=== PATIENT | female | born 1940 | race Caucasian/White ===

== ENCOUNTER → 2016-10-18 | Outpatient (CLI) | payer MEDICARE, MEDICAID ==
[~2016-10-18] MED LIST: 'XANAX0.5 MG PO; ACETAMINOPHEN PO; ACIDOPHILUS1 CAP PO; ALBUTEROL 3 ML 33 ML INH; ALBUTEROL2.5 MG/0.5 INH; AMLODIPINE10 MG PO; ANASTROZOLE1 M1 PO; ANASTROZOLE1 MG PO; ARIMIDEX1 MG PO; ASPIR 8181 MG PO; ASPIRIN ADULT L81 M2 PO; ASPIRIN162 MG PO; ASPIRIN81 M1 PO; Albuterol Sulfat3 ML INH; Asacol PO; B-COMPLEX1 CAP PO; BREO ELLIPTA 11 EACH IH; CALCIUM + D 6001 TA1 PO; CALCIUM + VITA1 EAC2 PO; CALCIUM 600 + V1 TAB PO; CALCIUM 600+D31 EACH PO; CALCIUM 600600 M1 PO; CALCIUM500 MG PO; CARAFATE1 G1 PO; CARAFATE1 GM/10 ML PO; CARDIZEM30 MG PO; CATAPRES-T0.1 MG/24 TD; CATAPRES0.1 MG PO; CEFTIN250 MG PO; CEFTRIAXON1 GM/50 ML IV; CEFUROXIME AXE250 MG PO; CELEXA10 MG PO; CELEXA20 MG PO; CHLORTHALIDONE25 MG PO; CIPRO XR500 MG PO; CIPRO500 MG PO; CIPROFLOXACIN500 MG PO; CITALOPRAM HYDR20 MG PO; CITALOPRAM10 MG PO; CLONIDINE0.1 MG PO; CLONIDINE0.2 MG/24 T; COLACE100 MG PO; COREG25 MG PO; COUMADIN3 M1 PO; COUMADIN4 M1 PO; COUMADIN5 M2 PO; Catapres-Tts 20.2 MG PO; DILTIAZEM HCL90 MG PO; DOK100 MG PO; DONNATAL1 CA1 PO; DOXYCYCLINE HY100 M5 PO; DOXYCYCLINE MO100 MG PO; DOXYCYCLINE100 M3 PO; DOXYCYCLINE100 MG PO; DULER200; DULER200 INH; DULERA 200 MCG8.8 GM IH; DULERA100; DUONEB 3 MG/3 ML3 M1 INH; Duoneb 3ML 3 MG/3 ML NEB; EFFIENT10 MG PO; FA-8800 MCG PO; FERREX 150150 MG PO; FLAGYL250 MG PO; FOLIC ACID1 MG PO; GABAPENTIN400 MG PO; GUANFACINE1 MG PO; HALFPRIN162 MG PO; HEPARIN IV; HYDROCODONE BIT1 T11 PO; HYDROXYZINE PAM50 MG PO; INCRUSE EL62.5 MCG/A IH; INDOMETHACIN25 M1 PO; KLOR-CON 1010 ME1 PO; KLOR-CON20 MEQ PO; LASIX20 MG PO; LASIX40 MG PO; LEVAQUIN750 MG PO; LEVOFLOXACIN500 MG PO; LEVOTHYROXIN; LEVOTHYROXIN0.075 MG PO; LIDODERM 5% PATC1 EA T; LISINOPRIL10 M1 PO; LISINOPRIL20 MG PO; LISINOPRIL5 MG PO; LOMOTIL 0.025 M1 TA1 PO; LOPRESSOR25 MG PO; LOPRESSOR50 MG PO; Lovenox60 MG/0.6 SC; MACROBID100 M1 PO; MECLIZINE HCL25 M2 PO; METOPROLOL SR100 MG PO; METOPROLOL25 MG PO; MOTRIN800 MG PO; MUCINEX600 MG PO; NATURE'S BLEND F1 MG PO; NEBULIZER DEVI; NEURONTIN100 MG; NEURONTIN100 MG PO; NEURONTIN300 MG PO; NEURONTIN400 MG PO; NEURONTIN800 MG PO; NILSTAT,MY500000 UN/ PO; NITROSTAT0.4 MG PO; NITROSTAT0.4 MG SL; NORCO 325 MG-51 TAB PO; NORVASC10 MG PO; NORVASC5 MG PO; OXYCODONE HCL5 M1 PO; OXYGEN NAS; PEPCID20 MG PO; PHENERGAN12.5 M1 PO; PLAVIX75 MG PO; POTASSIUM CHLO20 ME3 PO; POTASSIUM20 MEQ PO; PREDNISONE10 MG PO; PRILOSEC20 M1 PO; PRINIVIL10 MG PO; PRISTIQ50 MG PO; PRO-AIR HFA INH; PROAIR HFA0.09 MG/AC IH; PROAIR HFA0.09 MG/AC INH; PROAIR HFA8.5 GM INH; PROBIOTIC ACID1 EAC1 PO; PROTONIX IV40 MG PO; PROTONIX20 MG PO; PROTONIX40 MG PO; QUINAPRIL40 MG PO; SPIRIVA; SPIRIVA -- 3018 MCG INH; SPIRIVA -- 3018 MCG PO; SPIRIVA18 MCG IH; SPIRIVA18 MCG PO; SYMBICORT1 AE1 IH; SYMBICORT1 AE1 INH; SYNTHROID,LEVO50 MCG PO; SYNTHROID0.05 MG PO; Synthroid,Levo50 MCG PO; TOPAMAX25 M1 PO; TOPAMAX25 MG PO; TOPAMAX50 MG PO; TOPIRAMATE25 M1 PO; TRAMADOL HYDROC50 MG PO; TUMS REGULAR S500 MG PO; TUMS500 MG PO; TYLENOL EXTRA500 M1 PO; TYLENOL WITH CO1 TA1 PO; TYLENOL325 M1 PO; TYLENOL325 M2 PO; TYLENOL500 MG PO; ULTRAM ER100 MG PO; ULTRAM50 MG PO; VANCOCIN H250 MG/5 M PO; VANCOCIN HCL1 GM IV; VANCOCIN250 MG PO; VANCOMYCIN250 MG/2.5 PO; VENTOLIN 02.5 MG/3 M INH; VENTOLIN H0.09 MG/AC IH; VITAMIN B121000 MC1 PO; VITAMIN B12500 MC1 MM; VITAMIN B12500 MCG PO; XANAX0.25 MG PO; XANAX0.5 MG PO; ZESTRIL,PRINIVI40 MG PO; ZITHROMAX500 MG PO; ZOFRAN ODT4 MG SL; ZYVOX600 MG PO; Zofran4 MG PO; [UNRECOGNIZED DRUG - OTHER] IV; [UNRECOGNIZED DRUG - OTHER] PO
== END | disposition home or self-care (01) ==
LOC: CT 10-11 05:52
DX: G56.03 Carpal tunnel syndrome, bilateral upper limbs (principal); M47.22 Other spondylosis with radiculopathy, cervical region

== ENCOUNTER → 2017-03-02 | Outpatient (CLI) | payer MEDICARE, MEDICAID | END | disposition home or self-care (01) | LOC: RAD 15:42 | DX: M25.511 Pain in right shoulder (principal) ==

== ENCOUNTER 2017-06-13 20:43 | Emergency (ER) | payer MEDICARE, MEDICAID ==
[~2017-06-13] VITALS: Ht 165.1 cm; Wt 45.4 kg
[2017-06-13 21:38] LABS: BASO # 0.1 10*3/uL (0.0-0.1); BASO % 1.2 % (0.0-1.0); EOS # 0.2 10*3/uL (0.0-0.4); EOS % 2.7 % (1.0-4.0); HEMATOCRIT 32.7 % (37.0-47.0); HEMOGLOBIN 10.5 g/dl (12.0-16.0); LYMPH % 23.4 % (27.0-41.0); MEAN CELL VOLUME 101.9 fl (81.0-99.0); MEAN CORPUSCULAR HGB 32.7 pg (27.0-31.0); MEAN CORPUSCULAR HGB CONC 32.1 g/dl (33.0-37.0); MEAN PLATELET VOLUME 10.9 fl (9.6-12.3); MONO # 0.6 10*3/uL (0.1-1.0); MONO % 7.5 % (3.0-9.0); NEUT # 5.4 10*3/uL (2.3-7.9); NEUT % 64.5 % (47.0-73.0); PLATELET COUNT AUTOMATED 178 10*3/uL (130-400); RED BLOOD COUNT 3.21 10*6/uL (4.10-5.10); RED CELL DISTRI WIDTH 13.9 % (0-14.5); WHITE BLOOD COUNT 8.4 10*3/uL (4.8-10.8)
[2017-06-13 21:49] LABS: INTERNATIONAL NORM RATIO 0.9 (2.0-3.5)
[2017-06-13 21:59] LABS: ALKALINE PHOSPHATASE 75 U/L (45-117); BUN 20 mg/dl (7-24); CHLORIDE 114 mmol/L (98-107); CREATININE 1.12 mg/dL (0.55-1.02); POTASSIUM 3.8 mmol/L (3.5-5.1); SGOT/AST 22 IU/L (3-35); SGPT/ALT 29 U/L (12-78); SODIUM 144 mmol/L (136-145)
[2017-06-13 22:05] LABS: TROPONIN I < 0.015 ng/ml (<0.045)
== END 2017-06-14 00:33 | disposition short-term general hospital (02) ==
LOC: ED 20:43
PROVIDERS: Emergency Medicine Emergency Medical Services
DX: S72.141A Displaced intertrochanteric fracture of right femur, initial encounter for closed fracture (principal); I25.10 Atherosclerotic heart disease of native coronary artery without angina pectoris; J44.9 Chronic obstructive pulmonary disease, unspecified; F32.9 Major depressive disorder, single episode, unspecified; K21.9 Gastro-esophageal reflux disease without esophagitis; E87.5 Hyperkalemia; I95.9 Hypotension, unspecified; Z95.0 Presence of cardiac pacemaker; Z90.49 Acquired absence of other specified parts of digestive tract; Z90.710 Acquired absence of both cervix and uterus; F17.200 Nicotine dependence, unspecified, uncomplicated; Z88.2 Allergy status to sulfonamides; Z88.8 Allergy status to other drugs, medicaments and biological substances; Z79.899 Other long term (current) drug therapy; Z79.82 Long term (current) use of aspirin; W01.198A Fall on same level from slipping, tripping and stumbling with subsequent striking against other object, initial encounter; Y93.89 Activity, other specified; Y92.098 Other place in other non-institutional residence as the place of occurrence of the external cause; Y99.8 Other external cause status

== ENCOUNTER 2017-12-15 18:49 | Inpatient (IN) | payer MEDICARE, MEDICAID ==
[~2017-12-15] VITALS: Ht 165.1 cm; Wt 43.7 kg
[2017-12-15] VITALS: BP 160/82
[2017-12-15 18:55] VITALS: BP 205/104
[2017-12-15 19:32] VITALS: BP 172/98
[2017-12-15 19:39] LABS: BASO # 0.1 10*3/uL (0.0-0.1); BASO % 0.5 % (0.0-1.0); EOS # 0.2 10*3/uL (0.0-0.4); EOS % 2.2 % (1.0-4.0); HEMATOCRIT 36.2 % (37.0-47.0); HEMOGLOBIN 11.6 g/dl (12.0-16.0); LYMPH # 1.6 10*3/uL (1.3-4.4); LYMPH % 15.5 % (27.0-41.0); MEAN CELL VOLUME 98.1 fl (81.0-99.0); MEAN CORPUSCULAR HGB 31.4 pg (27.0-31.0); MEAN PLATELET VOLUME 10.7 fl (9.6-12.3); MONO # 0.6 10*3/uL (0.1-1.0); MONO % 5.8 % (3.0-9.0); NEUT # 7.5 10*3/uL (2.3-7.9); NEUT % 75.4 % (47.0-73.0); PLATELET COUNT AUTOMATED 209 10*3/uL (130-400); RED BLOOD COUNT 3.69 10*6/uL (4.10-5.10); RED CELL DISTRI WIDTH 13.7 % (0-14.5)
[2017-12-15 19:49] LABS: ACT PARTIAL THROMBO TIME 29.9 SECONDS (20.8-31.5); INTERNATIONAL NORM RATIO 0.9 (2.0-3.5)
[2017-12-15 19:55] LABS: ALBUMIN 3.1 gm/dl (3.1-4.5); ALKALINE PHOSPHATASE 101 U/L (45-117); BUN 19 mg/dl (7-24); CHLORIDE 112 mmol/L (98-107); CREATININE 1.04 mg/dL (0.55-1.02); LIPASE 73 U/L (73-393); POTASSIUM 3.4 mmol/L (3.5-5.1); SGOT/AST 24 IU/L (3-35); SGPT/ALT 28 U/L (12-78); SODIUM 142 mmol/L (136-145); TOTAL PROTEIN 6.6 gm/dL (6.4-8.2)
[2017-12-15 19:56] LABS: TROPONIN I < 0.015 ng/ml (<0.045)
[2017-12-15 21:16] LABS: BILIRUBIN NEGATIVE (NEGATIVE); BLOOD NEGATIVE (NEGATIVE); CLARITY SL CLOUDY (CLEAR); COLOR YELLOW (YELLOW); GLUCOSE NEGATIVE (NEGATIVE); KETONE NEGATIVE (NEGATIVE); LEUKO ESTERASE 3+ (NEGATIVE); NITRITE NEGATIVE (NEGATIVE); UROBILINOGEN 0.2 E.U./dl (0.2-1.0)
[2017-12-15 21:24] LABS: BACTERIA 4+
[2017-12-15 21:25] LABS: MUCOUS TRACE; WBC 51-100 wbc/hpf (0-5)
[2017-12-15 22:00] VITALS: BP 160/82
[2017-12-15] MEDS ORDERED: GABAPENTIN400 MG PO (22:17)
[2017-12-15] MEDS ORDERED: BUSPAR5 MG PO (22:17)
[2017-12-15] MEDS ORDERED: PROAIR HFA8.5 GM INH (22:18)
[2017-12-15] MEDS ORDERED: VITAMIN C500 M4 PO (22:19)
[2017-12-15 22:39] VITALS: BP 160/82
[2017-12-15] MEDS ORDERED: ANASTROZOLE1 M1 PO (23:15)
[2017-12-15] MEDS ORDERED: VENTOLIN 02.5 MG/3 M INH (23:17)
[2017-12-15] MEDS ORDERED: MAPAP500 M1 PO (23:21)
[2017-12-16 02:02] LABS: HEMATOCRIT 32.1 % (37.0-47.0); HEMOGLOBIN 10.3 g/dl (12.0-16.0); MEAN CELL VOLUME 98.5 fl (81.0-99.0); MEAN CORPUSCULAR HGB 31.6 pg (27.0-31.0); MEAN CORPUSCULAR HGB CONC 32.1 g/dl (33.0-37.0); MEAN PLATELET VOLUME 10.7 fl (9.6-12.3); PLATELET COUNT AUTOMATED 189 10*3/uL (130-400); RED BLOOD COUNT 3.26 10*6/uL (4.10-5.10); RED CELL DISTRI WIDTH 13.6 % (0-14.5); WHITE BLOOD COUNT 8.5 10*3/uL (4.8-10.8)
[2017-12-16 02:21] LABS: BUN 19 mg/dl (7-24); CHLORIDE 115 mmol/L (98-107); CHOLESTEROL 123 mg/dL (<200); CREATININE 0.89 mg/dL (0.55-1.02); HDL CHOLESTEROL 60 mg/dl (40-60); LDL CHOLESTEROL 57 mg/dL (9-159); PHOSPHOROUS 2.6 mg/dL (2.5-4.9); POTASSIUM 3.7 mmol/L (3.5-5.1); SODIUM 144 mmol/L (136-145); TRIGLYCERIDES 29 mg/dl (<150); VLDL CHOLESTEROL 6 mg/dL (6-40)
[2017-12-16 02:27] LABS: PLATELET SUFFICIENCY NORMAL (NORMAL); TOTAL CELLS COUNTED 100 #CELLS
[2017-12-16 06:53] LABS: VITAMIN D, 25-HYDROXY 46.5 ng/mL (30-100)
[2017-12-16 08:00] VITALS: BP 131/70; BP 152/83
[2017-12-16 12:00] VITALS: BP 133/62
[2017-12-16 15:46] VITALS: BP 129/55
[2017-12-16 20:00] VITALS: BP 154/67
[2017-12-17] VITALS: BP 149/69
[2017-12-17 06:24] LABS: HEMATOCRIT 32.4 % (37.0-47.0); HEMOGLOBIN 10.2 g/dl (12.0-16.0); MEAN CELL VOLUME 100.9 fl (81.0-99.0); MEAN CORPUSCULAR HGB 31.8 pg (27.0-31.0); MEAN CORPUSCULAR HGB CONC 31.5 g/dl (33.0-37.0); MEAN PLATELET VOLUME 10.6 fl (9.6-12.3); PLATELET COUNT AUTOMATED 206 10*3/uL (130-400); RED BLOOD COUNT 3.21 10*6/uL (4.10-5.10); RED CELL DISTRI WIDTH 13.9 % (0-14.5)
[2017-12-17 06:31] LABS: WHITE BLOOD COUNT 18.1 10*3/uL (4.8-10.8)
[2017-12-17 06:38] LABS: ALBUMIN 2.7 gm/dl (3.1-4.5); BUN 23 mg/dl (7-24); CHLORIDE 116 mmol/L (98-107); POTASSIUM 4.3 mmol/L (3.5-5.1); SODIUM 144 mmol/L (136-145)
[2017-12-17 06:43] LABS: ALKALINE PHOSPHATASE 84 U/L (45-117); CREATININE 0.87 mg/dL (0.55-1.02); PHOSPHOROUS 2.4 mg/dL (2.5-4.9); SGOT/AST 18 IU/L (3-35); SGPT/ALT 20 U/L (12-78); TOTAL PROTEIN 5.6 gm/dL (6.4-8.2)
[2017-12-17 06:51] LABS: PLATELET SUFFICIENCY NORMAL (NORMAL); TOTAL CELLS COUNTED 100 #CELLS
[2017-12-17 08:00] VITALS: BP 162/78
[2017-12-17 12:00] VITALS: BP 164/70
[2017-12-17 16:00] VITALS: BP 179/84
[2017-12-17 20:00] VITALS: BP 187/82
[2017-12-18] VITALS: BP 158/84
[2017-12-18 06:20] LABS: HEMATOCRIT 33.1 % (37.0-47.0); HEMOGLOBIN 10.5 g/dl (12.0-16.0); MEAN CORPUSCULAR HGB 31.7 pg (27.0-31.0); MEAN CORPUSCULAR HGB CONC 31.7 g/dl (33.0-37.0); MEAN PLATELET VOLUME 10.5 fl (9.6-12.3); PLATELET COUNT AUTOMATED 211 10*3/uL (130-400); RED BLOOD COUNT 3.31 10*6/uL (4.10-5.10); RED CELL DISTRI WIDTH 14.2 % (0-14.5); WHITE BLOOD COUNT 17.6 10*3/uL (4.8-10.8)
[2017-12-18 06:39] LABS: ALBUMIN 2.7 gm/dl (3.1-4.5); ALKALINE PHOSPHATASE 82 U/L (45-117); BUN 29 mg/dl (7-24); CHLORIDE 114 mmol/L (98-107); CREATININE 0.92 mg/dL (0.55-1.02); PHOSPHOROUS 2.1 mg/dL (2.5-4.9); POTASSIUM 3.9 mmol/L (3.5-5.1); SGOT/AST 18 IU/L (3-35); SGPT/ALT 30 U/L (12-78); SODIUM 146 mmol/L (136-145)
[2017-12-18 06:54] LABS: PLATELET SUFFICIENCY NORMAL (NORMAL); TOTAL CELLS COUNTED 100 #CELLS
[2017-12-18 08:00] VITALS: BP 152/83
[2017-12-18 12:00] VITALS: BP 158/72
[2017-12-18] MEDS ORDERED: DOXYCYCLINE100 M3 PO (12:14)
[2017-12-18] MEDS ORDERED: PREDNISONE10 MG PO (12:14)
== END 2017-12-18 15:18 | disposition home health service (06) | DRG 871 ==
LOC: ED 18:49 → EDHOLD 21:42 → 5E 21:42
PROVIDERS: Internal Medicine; Internal Medicine Nephrology; Nurse Practitioner Family
DX: A41.9 Sepsis, unspecified organism (principal); J18.9 Pneumonia, unspecified organism; E43 Unspecified severe protein-calorie malnutrition; N39.0 Urinary tract infection, site not specified; D64.9 Anemia, unspecified; E87.8 Other disorders of electrolyte and fluid balance, not elsewhere classified; J44.0 Chronic obstructive pulmonary disease with (acute) lower respiratory infection; J44.1 Chronic obstructive pulmonary disease with (acute) exacerbation; I16.1 Hypertensive emergency; Z68.1 Body mass index [BMI] 19.9 or less, adult; E87.6 Hypokalemia; R73.9 Hyperglycemia, unspecified; R63.6 Underweight; I25.10 Atherosclerotic heart disease of native coronary artery without angina pectoris; K21.9 Gastro-esophageal reflux disease without esophagitis; K27.9 Peptic ulcer, site unspecified, unspecified as acute or chronic, without hemorrhage or perforation; E03.9 Hypothyroidism, unspecified; F32.9 Major depressive disorder, single episode, unspecified; I73.9 Peripheral vascular disease, unspecified; R32 Unspecified urinary incontinence; B96.1 Klebsiella pneumoniae [K. pneumoniae] as the cause of diseases classified elsewhere; R09.02 Hypoxemia; R15.9 Full incontinence of feces; F41.9 Anxiety disorder, unspecified; Z85.118 Personal history of other malignant neoplasm of bronchus and lung; Z90.2 Acquired absence of lung [part of]; Z88.2 Allergy status to sulfonamides; Z88.8 Allergy status to other drugs, medicaments and biological substances; Z79.899 Other long term (current) drug therapy; Z79.82 Long term (current) use of aspirin; Z85.3 Personal history of malignant neoplasm of breast; Z86.718 Personal history of other venous thrombosis and embolism; Z87.01 Personal history of pneumonia (recurrent); Z71.6 Tobacco abuse counseling; Z72.0 Tobacco use; Z87.440 Personal history of urinary (tract) infections; Z95.0 Presence of cardiac pacemaker; Z90.49 Acquired absence of other specified parts of digestive tract; Z90.710 Acquired absence of both cervix and uterus; Z82.3 Family history of stroke; Z80.8 Family history of malignant neoplasm of other organs or systems; Z92.3 Personal history of irradiation

== ENCOUNTER → 2018-01-23 | Outpatient (CLI) | payer MEDICARE, MEDICAID ==
[~2018-01-23] MED LIST changes: +BUSPAR5 MG PO; +MAPAP500 M1 PO; +VITAMIN C500 M4 PO
== END | disposition home or self-care (01) ==
LOC: LAB 11:59
DX: R05 Cough (principal)

== ENCOUNTER 2018-02-03 14:03 | Emergency (ER) | payer MEDICARE, MEDICAID ==
[~2018-02-03] VITALS: Ht 165.1 cm; Wt 42.6 kg
--- NOTE | ~2018-02-03 | EKG ---
[place], [place] ELECTROCARDIOGRAM REPORT NAME: ABDI ARZOLA UNIT #: [id number] ROOM: DOCTOR: BONNIEANY DRAFT REPORT BIRTHDATE: [birth year] [facility] Test Date: 2018-02-03 Test Time: 14:37:40 Pat Name: ABDI ARZOLA Department: Room: Gender: F Chick Grader: : 1940 Requested By: ROSEMARY MCKEON PA-C Order Number: [id number] Reading MD: Moisés Martinez MD Measurements Intervals [place] Rate: 71 P: 66 MO: 176 QRS: -17 QRSD: 96 T: 48 QT: 395 QTc: 430 Interpretive Statements Sinus rhythm Left ventricular hypertrophy Anterior ST elevation, probably due to LVH Electronically Signed On 02-04-2018 7:00:18 PDT by Moisés Martinez MD CM:EKGRPT:ELECTROCARDIOGRAM REPORT [id number] ROSEMARY MCKEON PA-C EPIPHANY DRAFT REPORT ROSEMARY MCKEON PA-C
[2018-02-03 14:41] LABS: HEMATOCRIT 37.1 % (37.0-47.0); HEMOGLOBIN 12.2 g/dl (12.0-16.0); MEAN CELL VOLUME 97.4 fl (81.0-99.0); MEAN CORPUSCULAR HGB CONC 32.9 g/dl (33.0-37.0); MEAN PLATELET VOLUME 10.3 fl (9.6-12.3); PLATELET COUNT AUTOMATED 229 10*3/uL (130-400); RED BLOOD COUNT 3.81 10*6/uL (4.10-5.10); RED CELL DISTRI WIDTH 15.8 % (0-14.5); WHITE BLOOD COUNT 16.3 10*3/uL (4.8-10.8)
[2018-02-03 14:51] LABS: INTERNATIONAL NORM RATIO 0.9 (2.0-3.5)
[2018-02-03 14:52] LABS: BASOPHILS 1 % (0-1); PLATELET SUFFICIENCY NORMAL (NORMAL)
[2018-02-03 14:53] LABS: POLYCHROMASIA SLIGHT
[2018-02-03 16:18] LABS: TROPONIN I < 0.015 ng/ml (<0.045)
== END 2018-02-03 16:45 ==
LOC: ED 14:03
PROVIDERS: Physician Assistant
DX: K59.00 Constipation, unspecified (principal); I10 Essential (primary) hypertension; Z88.8 Allergy status to other drugs, medicaments and biological substances; Z88.2 Allergy status to sulfonamides; Z79.899 Other long term (current) drug therapy; Z79.82 Long term (current) use of aspirin

== ENCOUNTER → 2018-03-10 | Outpatient (CLI) | payer MEDICARE, MEDICAID ==
[~2018-03-10] MED LIST changes: +AMLODIPINE BESYL5 MG PO; +BUSPIRONE10 MG PO; +COLCHICINE0.6 M1 PO; +DILTIAZEM HCL30 MG PO; +TOPAMAX100 M1 PO; +ZESTRIL10 MG PO
== END | disposition home or self-care (01) ==
LOC: MEDIPORT 02-17 02:14
DX: Z45.2 Encounter for adjustment and management of vascular access device (principal); Z86.008 Personal history of in-situ neoplasm of other site

== ENCOUNTER → 2018-05-12 | Outpatient (CLI) | payer MEDICARE, MEDICAID | END | disposition home or self-care (01) | LOC: MEDIPORT 01:23 | DX: Z45.2 Encounter for adjustment and management of vascular access device (principal) ==

== ENCOUNTER 2018-05-30 15:28 | Inpatient (IN) | payer MEDICARE, MEDICAID ==
[2018-05-30] VITALS (7 sets, daily range): BP systolic 100–146; BP diastolic 37–60
[~2018-05-30] VITALS: Ht 165.1 cm
--- NOTE | ~2018-05-30 | CON ---
[place], [place] REPORT OF CONSULTATION NAME: [id number] UNIT #: [id number] ROOM: 525 DOCTOR: HOWIELORRAINETERI BIRTHDATE: [birth year] DOS: 06/02/2018 REASON FOR CONSULTATION: The patient requests consult for dyspnea on exertion. HISTORY OF PRESENT ILLNESS: The patient is a 78-year-old female with a past medical history significant for COPD, lung cancer, status post lobectomy, hypertension, hypothyroidism, coronary artery disease and a hiatal hernia. The patient presented to the ED originally for syncope and dehydration. The patient states she had taken a laxative and had multiple bowel movements and diarrhea. The patient called her son to come home and he found her slumped over on her potty chair. The patient states she had passed out while bearing down. We were consulted due to the patient's dyspnea on exertion and the patient is currently being seen by her associate chemist, Dr. Ortiz in the hospital. The patient denies increased shortness of breath, cough or increased sputum production or purulence. The patient denies symptoms of fevers, chills, hemoptysis and chest pain. The patient is currently in her normal state of health. PAST MEDICAL HISTORY: 1. Chronic obstructive pulmonary disease. 2. History of lung cancer, status post lobectomy. 3. Major depressive disorder. 4. Coronary artery disease with a history of myocardial infarction and stent placement. 5. Peptic ulcer disease. 6. Chronic kidney disease. 7. Hypothyroidism. 8. Essential hypertension. 9. History of deep venous thrombosis in the left arm. 10. History of breast cancer. 11. History of GI bleed. PAST SURGICAL HISTORY: 1. History of left heart catheterization. 2. Hysterectomy. 3. Lumpectomy of both breasts. 4. Partial gastrectomy. 5. Right lobectomy. 6. Angioplasty. 7. Pacemaker insertion. FAMILY HISTORY: Significant for uterine cancer in her mother and prostate cancer in her father. SOCIAL HISTORY: The patient denies any alcohol or illicit drug use. The patient states she stopped smoking. The patient states she has been smoking for 59 years. Again, the patient states she currently stopped smoking. HOME MEDICATIONS: Ventolin, ProAir HFA, Symbicort, Spiriva, acetaminophen, ascorbic acid, aspirin, buspirone, Tums, calcium carbonate, diltiazem, Lomotil, gabapentin, Synthroid, lisinopril, potassium chloride, Topamax, Nitrostat. [place], [place] REPORT OF CONSULTATION NAME: ABDI ARZOLA UNIT #: [id number] ROOM: [facility] DOCTOR: TERI MARSHALL BIRTHDATE: [birth year] DRUG ALLERGIES: The patient states she has an allergy to SULFA MEDICATIONS. REVIEW OF SYSTEMS: GENERAL: The patient denies any fevers or chills. HEENT: The patient denies sore throat, but notes a feeling of something stuck in her throat. The patient states she does not have blurry vision, except at times when she lies down for a few seconds. CARDIOVASCULAR: The patient denies any chest pain or palpitations. RESPIRATORY: Currently, the patient denies shortness of breath, cough, increased sputum production. GASTROINTESTINAL: The patient denies any abdominal pain, nausea, vomiting or constipation. The patient admits to diarrhea. GENITOURINARY: The patient denies any hematuria, dysuria or increased frequency. NEUROLOGICAL: The patient denies any headaches. Admits to some tingling in her right hand that she claims due to her arthritis. The patient currently is seeing a specialist for that tingling she noted in her right hand. MUSCULOSKELETAL: The patient denies new symptoms of arthritic pain. SKIN: The patient denies new onset bruising, lesions or lacerations. ENDOCRINE: The patient denies polyuria and polydipsia. HEMATOLOGIC: The patient states she has been bruising more easily in the last several years. PHYSICAL EXAMINATION: VITAL SIGNS: Normal temperature, respiratory rate 18, heart rate 71, blood pressure 140/60, pulse oxygen saturation on room air 96% saturation. GENERAL APPEARANCE: The patient is awake, alert and oriented, currently not in any apparent distress. HEAD: Normocephalic, atraumatic. EENT: Mucosa moist. Eyes nonicterus. CHEST AND LUNGS: Clear throughout. Decreased breath sounds bilaterally. HEART: S1 and S2 present. No murmurs, gallops or rubs noted. NECK: Supple. ABDOMEN: Soft, nontender. EXTREMITIES: No edema, no cyanosis. NEUROLOGICAL: Grossly intact. SKIN: No new lesions, lacerations or bruising; however, chronic bruising noted throughout extremities as well as previous skin tears. LABORATORY DATA: CBC 06/02/2018, white blood cell count 7.2, hemoglobin 9.5, platelet count 148. CMP 06/02/2018, BUN 10, creatinine 0.93, carbon dioxide 21, glucose 88. IMAGING STUDIES: 05/30/2018 chest x-ray, no acute process seen, stable extensive chronic changes and underlying emphysema, no consolidations or atelectasis seen. IMPRESSIONS: 1. The patient is currently in normal state of health. No exacerbation of the [place], [place] REPORT OF CONSULTATION NAME: ABDI ARZOLA UNIT #: [id number] ROOM: [facility] DOCTOR: TERI MARHSALL BIRTHDATE: [birth year] patient's chronic obstructive pulmonary disease. 2. Past history of lung and breast cancer known previously. 3. History of complete heart block, coronary artery disease. PLAN OF TREATMENT: The patient is scheduled for an outpatient bronchoscopy next Thursday. The patient is okay to discharge from a pulmonary standpoint. No antibiotics required or changes in bronchodilators. The patient discharged from pulmonary standpoint. Continue supportive care therapy and plan of care. The patient is to receive a bronchoscopy next Thursday as the patient complains of feelings of congestion in her chest, primarily in her upper airway. TERI MARSHALL, ELLI REGALADO MD CM:CONSTR:REPORT OF CONSULTATION 1237 06/03/18 1029 interface
--- NOTE | ~2018-05-30 | PR ---
[place], [place] PROGRESS NOTE NAME: ABDI ARZOLA UNIT #: [id number] ROOM: 525 DOCTOR: BENTLEY MARIE MD BIRTHDATE: [birth year] DOS: 06/01/2018 SUBJECTIVE: The patient is 78 years old. 24-hour events noted. Discussed with the nursing staff. The patient was seen by Dr. Ortiz. The patient is with a history of permanent pacemaker, admitted with probable dehydration and explosive diarrhea. The patient's cardiac status appears to be stable at this point. Denies any chest discomfort and hemodynamically stable. PAST MEDICAL HISTORY: Significant for severe COPD, breast cancer, coronary artery disease, permanent pacemaker, and peripheral vascular disease. PAST SURGICAL HISTORY: Permanent pacemaker for complete heart block. MEDICATIONS: The patient was on diltiazem 90 mg b.i.d. at home, which has been decreased to 30 mg b.i.d. as per Dr. Ortiz. OBJECTIVE: VITAL SIGNS: Blood pressure is 150/60, heart rate is 70. HEENT: Unremarkable. NECK: Supple. No JVD. LUNGS: Diminished air entry. HEART: Rate is paced. NEUROLOGIC: Stable. LABORATORY DATA: Hemoglobin 9.4, hematocrit 30.3. Electrolytes are normal. Creatinine is 0.9. IMPRESSION: 1. Permanent pacemaker. 2. Dehydration. 3. Chronic obstructive pulmonary disease. 4. Coronary artery disease. Cardiac status appears to be stable. PLAN: Recommend to start Cardizem at 30 mg b.i.d. as suggested by Dr. Ortiz, as he has seen the patient and recommended it. [place], [place] PROGRESS NOTE NAME: ABDI ARZOLA UNIT #: [id number] ROOM: 525 DOCTOR: BENTLEY MARIE MD BIRTHDATE: [birth year] BENTLEY MARIE MD CM:PNTRANS 7 7 BENTLEY MARIE MD 06/01/18927 interface
--- NOTE | ~2018-05-30 | CON ---
[place], [place] REPORT OF CONSULTATION NAME: ABDI ARZOLA UNIT #: [id number] ROOM: 525 DOCTOR: HETAL MEYER MD BIRTHDATE: [birth year] DOS: 05/31/2018 HISTORY OF PRESENT ILLNESS: History is obtained from the patient and her son. The patient has history of COPD and also has a pacemaker for heart block done a few years ago. She had been constipated for quite some time and took some Correctol and that resulted in profuse diarrhea. She had several bowel movements that were rather watery. She became weak and her son found her on the floor. He tells me that she opened her eyes, lifted her head up to appreciate his presence. It is not clear if she passed out completely or not, patient think so. She had no chest pain or palpitation at that time, but had been lightheaded. Her son tells me that she drinks very little water and even other fluids. She had not had any palpitations or any sweating or nausea. She does not recall any orthopnea, although she has quite a bit of shortness of breath with exertion because of COPD. PAST MEDICAL HISTORY: Coronary artery disease, significant COPD, GERD, breast cancer, hypothyroidism, peptic ulcer disease, peripheral vascular disease and lung cancer in the remote past. PAST SURGICAL HISTORY: She had a dual chamber pacemaker for heart block. SOCIAL HISTORY: She smokes on and off. HOME MEDICATIONS: Include bronchodilator therapies of 3 different types, vitamin C, aspirin 81 daily, BuSpar 5 mg b.i.d., calcium carbonate 500 b.i.d., diltiazem 90 mg b.i.d., gabapentin 400 mg t.i.d., levothyroxine 50 mcg daily, potassium chloride 10 mEq daily and Topamax 50 mg t.i.d. and sublingual nitroglycerin p.r.n. PHYSICAL EXAMINATION: GENERAL: A patient who is weak and slow, tired, underweight. VITAL SIGNS: Temperature is normal, pulse is 84, and regular, blood pressure 104/46. NECK: JVP is low. RESPIRATORY: Breath sounds are severely diminished and there are no murmurs. EXTREMITIES: She has no edema of the lower extremities. LABORATORY DATA: Monitor shows normal sinus rhythm. IMPRESSION: 1. This is a patient who drinks very little fluids, probably was volume depleted to begin with and explosive diarrhea probably caused significant volume depletion that she became very hypotensive, systolic blood pressure was rather low in the Emergency Department. She is much better now. The pacemaker is present and interrogation in the office was satisfactory. 2. Chronic obstructive pulmonary disease. This is a significant issue. 3. Coronary artery disease is not an issue at this time. RECOMMENDATIONS: She should be encouraged to take a lot of fluids and diltiazem [place], [place] REPORT OF CONSULTATION NAME: ABDI ARZOLA UNIT #: [id number] ROOM: [facility] DOCTOR: HETAL MEYER MD BIRTHDATE: [birth year] can be held for the time being and later may be started at lower dose such as 30 mg b.i.d. I thank you for this consult. HETAL MEYER MD CM:CONSTR:REPORT OF CONSULTATION 1847 06/10/18 0733 interface
--- NOTE | ~2018-05-30 | CON ---
[place], [place] REPORT OF CONSULTATION NAME: ABDI ARZOLA UNIT #: [id number] ROOM: 525 DOCTOR: ELLI ISBELL MD BIRTHDATE: [birth year] DOS: 06/02/2018 PULMONARY CONSULTATION, EVALUATION, AND MANAGEMENT REASON FOR CONSULTATION: Assess the patient's symptoms of shortness of breath with history of COPD and cough. HISTORY OF PRESENT ILLNESS: This is a 78-year-old white female patient who was admitted to the hospital under the hospitalist service on 05/30/2018. The patient was independently seen and examined in [id number] encounter. History was confirmed. Physical examination was performed. The labs were reviewed. The note done by the medical physicist was approved as well. Assessment and management of the patient's today's consultation was personally made. The patient was hospitalized as the patient did pass out as she was trying to use the commode. She was taking excess amount of laxatives because of the constipation. She was brought to the hospital. The patient has been noted with findings of hypotension with intravascular volume depletion. ATN with acute kidney injury noted. The patient has been hydrated well with resolution of the acute kidney injury of the patient as well as hypotension and symptoms of dizziness and syncope. The patient has been planned for discharge. The patient reported symptoms of shortness of breath that occur with exertion. The patient was noted worsening on admission, but currently improving. She reported symptoms of cough, which has been noted moderate to severe and nonresolving. The patient stated that she has finally quit smoking cigarettes recently. She denies symptoms of chest pain. She does have symptoms of occasional wheezing. REVIEW OF SYSTEMS: As completed by the medical physicist. PAST MEDICAL HISTORY: Known with: 1. Advanced COPD. 2. History of lung cancer with lobectomy in the past. 3. Major depression. 4. Coronary artery disease and myocardial infarction. 5. Peptic ulcer disease. 6. Hypothyroidism. 7. Essential hypertension. 8. Deep venous thrombosis of the left upper extremity related to the PICC line. 9. History of breast cancer, which has been treated with lumpectomy. PAST SURGICAL HISTORY: 1. Cholecystectomy. 2. Hysterectomy. 3. Left breast surgery of the patient with lumpectomy. 4. Partial gastrectomy. 5. Right upper lobectomy. 6. Angioplasty. 7. Pacemaker insertion. SOCIAL HISTORY: The patient lives at home. Currently . She has been known with tobacco use for the patient at a younger age about a pack of [place], [place] REPORT OF CONSULTATION NAME: ABDI ARZOLA UNIT #: [id number] ROOM: [facility] DOCTOR: ELLI ISBELL MD BIRTHDATE: [birth year] cigarettes per day. Intermittent tobacco cessation noted, the patient stated that she has resumed tobacco use recently and now discontinued tobacco use again. FAMILY HISTORY: Significant for uterine cancer in the mother and prostate cancer in the father. HOME MEDICATIONS: Listed at time of the admission as ProAir HFA inhaler p.r.n. use, vitamin C, aspirin, Symbicort HFA, BuSpar, calcium carbonate with vitamin D, Cardizem, levothyroxine, lisinopril, Nitrostat, potassium chloride, Spiriva and Topamax. DRUG ALLERGIES: Reported allergy to: 1. SULFA DRUGS. 2. COUMADIN. 3. METAXALONE. PHYSICAL EXAMINATION: GENERAL: This is a 78-year-old white female patient who has been currently noted awake and alert without any acute distress this morning of assessment. Height was 5 feet 4 inches, weight of 90 pounds, BMI 19. VITAL SIGNS: Normal temperature, respiratory rate 18-15, heart rate 71-89, blood pressure 180/68-140/80 this morning. The pulse oxygen saturation on room air is 96% saturation this morning. HEENT: Head was atraumatic. Eyes nonicterus. NECK: Supple. CARDIOVASCULAR: S1, S2 is audible. LUNGS: The patient was noted with kaqu-av-bicomxif reduction in breath sounds without wheezing or crackles. ABDOMEN: Soft, nontender. Bowel sounds present. EXTREMITIES: The patient noted without acute edema. MUSCULOSKELETAL: Without acute deformities. CENTRAL NERVOUS SYSTEM: Cranial nerves 2-12 intact. LABORATORY DATA: CMP that was done on 05/30/2018, on admission, BUN 25, creatinine 1.50 at that time. CBC of the patient on admission, WBC count 18.4, hemoglobin and hematocrit normal, platelet count was normal. Labs this morning, BMP of the patient this morning noted normal BUN and creatinine. CBC from 06/02/2018 normal WBC count, hemoglobin 9.5, platelet count was normal. IMAGING STUDIES: Chest x-ray that was done, 1 view on 05/30/2018 was reviewed from the PACS, images were noted. MediPort in place, pacemaker in place as well with changes of severe COPD and emphysema without any acute pulmonary infiltrates. IMPRESSION: 1. The patient was noted with chronic cough, most likely due to mucous infection, history of chronic obstructive pulmonary disease, recent tobacco cessation, resulting in accumulation of the cough and chronic bronchitis and mucous impaction nonresolving after tobacco cessation. [place], [place] REPORT OF CONSULTATION NAME: ABDI ARZOLA UNIT #: [id number] ROOM: 525 DOCTOR: FABRICIO MARES MD,ELLI BIRTHDATE: [birth year] 2. Resolution of acute kidney injury of the patient with intravascular volume depletion and acute tubular necrosis after IV hydration as well. 3. The patient with past history of lung cancer and breast cancer without any known recurrence and remains in remission. 4. Overall debility was also seen. PLAN OF THERAPY: Bronchoscopy planned for the patient to be done as an outpatient next week. The patient understands the risk and benefits of procedure. Advised about the bronchoscopy. The patient was given appropriate instructions. Other supportive plan of management care and therapy of the patient to be continued as well. Additional treatment changes may be ordered for the patient as she remains in the hospital for the pulmonary needs on future assessment. ELLI REGALADO MD CM:CONSTR:REPORT OF CONSULTATION 1212 06/02/18 2658 interface
--- NOTE | ~2018-05-30 | EKG ---
[place], [place] ELECTROCARDIOGRAM REPORT NAME: ABDI ARZOLA UNIT #: [id number] ROOM: 525 DOCTOR: CHUY DRAFT REPORT BIRTHDATE: [birth year] [facility] Test Date: 2018-05-30 Test Time: 15:56:38 Pat Name: ABDI ARZOLA Department: ER Room: 525 Gender: F [employer]: EKG.[place] : 1940 Requested By: LI MATUTE Order Number: [id number] Reading MD: Meaghan Ortiz MD Measurements Intervals [place] Rate: 67 P: -7 [place]: 203 QRS: -24 QRSD: 95 T: 25 QT: 430 QTc: 454 Interpretive Statements Sinus rhythm Left ventricular hypertrophy Anterior Q waves, possibly due to LVH Compared to ECG 02/03/2018 14:37:40 Q waves now present ST (T wave) deviation no longer present Electronically Signed On 05-31-2018 14:23:33 PST by Meaghan Ortiz MD CM:EKGRPT:ELECTROCARDIOGRAM REPORT [id number] LI JUAN DRAFT REPORT LI MATUTE DO
[~2018-05-30 15:28] MED LIST changes: -AMLODIPINE BESYL5 MG PO; -BUSPIRONE10 MG PO; -COLCHICINE0.6 M1 PO; -DILTIAZEM HCL30 MG PO; -TOPAMAX100 M1 PO; -ZESTRIL10 MG PO
[2018-05-30 16:00] LABS: HEMATOCRIT 38.1 % (37.0-47.0); HEMOGLOBIN 12.1 g/dl (12.0-16.0); MEAN CELL VOLUME 99.5 fl (81.0-99.0); MEAN CORPUSCULAR HGB 31.6 pg (27.0-31.0); MEAN CORPUSCULAR HGB CONC 31.8 g/dl (33.0-37.0); MEAN PLATELET VOLUME 10.6 fl (9.6-12.3); PLATELET COUNT AUTOMATED 199 10*3/uL (130-400); RED BLOOD COUNT 3.83 10*6/uL (4.10-5.10); RED CELL DISTRI WIDTH 14.9 % (0-14.5); WHITE BLOOD COUNT 18.4 10*3/uL (4.8-10.8)
[2018-05-30 16:16] LABS: ALBUMIN 2.9 gm/dl (3.1-4.5); ALKALINE PHOSPHATASE 180 U/L (45-117); BUN 25 mg/dl (7-24); CHLORIDE 111 mmol/L (98-107); LIPASE 93 U/L (73-393); POTASSIUM 3.6 mmol/L (3.5-5.1); SGOT/AST 29 IU/L (3-35); SGPT/ALT 25 U/L (12-78); SODIUM 140 mmol/L (136-145)
[2018-05-30 16:18] LABS: TROPONIN I < 0.015 ng/ml (<0.045)
[2018-05-30 16:43] LABS: BASOPHILS 1 % (0-1); TOTAL CELLS COUNTED 100 #CELLS
[2018-05-30 16:44] LABS: PLATELET SUFFICIENCY NORMAL (NORMAL)
[2018-05-30 17:02] LABS: ACT PARTIAL THROMBO TIME 25.5 SECONDS (20.8-31.5); INTERNATIONAL NORM RATIO 0.9 (2.0-3.5)
[2018-05-30] MEDS ORDERED: BUSPIRONE10 MG PO (19:17)
[2018-05-30] MEDS ORDERED: ZESTRIL10 MG PO (19:19)
[2018-05-31] VITALS: BP 108/56
[2018-05-31 06:54] LABS: BASO # 0.1 10*3/uL (0.0-0.1); BASO % 0.6 % (0.0-1.0); EOS # 0.2 10*3/uL (0.0-0.4); EOS % 1.6 % (1.0-4.0); LYMPH # 2.2 10*3/uL (1.3-4.4); LYMPH % 17.9 % (27.0-41.0); MEAN CELL VOLUME 100.3 fl (81.0-99.0); MEAN CORPUSCULAR HGB 31.9 pg (27.0-31.0); MEAN CORPUSCULAR HGB CONC 31.8 g/dl (33.0-37.0); MEAN PLATELET VOLUME 10.9 fl (9.6-12.3); MONO # 0.6 10*3/uL (0.1-1.0); MONO % 5.1 % (3.0-9.0); NEUT # 8.9 10*3/uL (2.3-7.9); NEUT % 74.3 % (47.0-73.0); PLATELET COUNT AUTOMATED 157 10*3/uL (130-400); RED BLOOD COUNT 3.01 10*6/uL (4.10-5.10); RED CELL DISTRI WIDTH 15.1 % (0-14.5)
[2018-05-31 06:56] LABS: HEMATOCRIT 30.2 % (37.0-47.0); HEMOGLOBIN 9.6 g/dl (12.0-16.0)
[2018-05-31 07:02] LABS: ACT PARTIAL THROMBO TIME 28.7 SECONDS (20.8-31.5)
[2018-05-31 07:23] LABS: CREATININE 1.28 mg/dL (0.55-1.02); FREE T4 0.75 ng/dl (0.76-1.46); PHOSPHOROUS 3.1 mg/dL (2.5-4.9); POTASSIUM 3.9 mmol/L (3.5-5.1)
[2018-05-31 07:31] LABS: THYROID STIM HORMONE (HS) 0.567 uIU/ml (0.358-4.75)
[2018-05-31 08:00] VITALS: BP 108/52
[2018-05-31 09:11] LABS: BILIRUBIN NEGATIVE (NEGATIVE); BLOOD NEGATIVE (NEGATIVE); CLARITY SL CLOUDY (CLEAR); COLOR YELLOW (YELLOW); GLUCOSE NEGATIVE (NEGATIVE); KETONE NEGATIVE (NEGATIVE); LEUKO ESTERASE 1+ (NEGATIVE); NITRITE NEGATIVE (NEGATIVE); UROBILINOGEN 0.2 E.U./dl (0.2-1.0)
[2018-05-31 10:11] LABS: BACTERIA 1+; CALCIUM OXALATE CRYSTALS 1+; EPITHELIAL CELLS 16-20
[2018-05-31 12:00] VITALS: BP 104/46
[2018-05-31 14:40] LABS: ALBUMIN 2.5 gm/dl (3.1-4.5); CREATININE 1.22 mg/dL (0.55-1.02); POTASSIUM 3.5 mmol/L (3.5-5.1); TOTAL PROTEIN 5.3 gm/dL (6.4-8.2)
[2018-05-31 16:00] VITALS: BP 132/55
[2018-05-31 20:00] VITALS: BP 166/64
[2018-05-31 22:45] VITALS: BP 120/60
[2018-06-01] VITALS: BP 152/61
[2018-06-01 07:00] LABS: BASO # 0.1 10*3/uL (0.0-0.1); BASO % 0.7 % (0.0-1.0); EOS # 0.3 10*3/uL (0.0-0.4); EOS % 3.5 % (1.0-4.0); HEMATOCRIT 30.3 % (37.0-47.0); HEMOGLOBIN 9.4 g/dl (12.0-16.0); LYMPH # 1.2 10*3/uL (1.3-4.4); LYMPH % 15.2 % (27.0-41.0); MEAN CORPUSCULAR HGB 31.3 pg (27.0-31.0); MEAN PLATELET VOLUME 11.2 fl (9.6-12.3); MONO # 0.4 10*3/uL (0.1-1.0); MONO % 5.3 % (3.0-9.0); NEUT % 74.8 % (47.0-73.0); PLATELET COUNT AUTOMATED 159 10*3/uL (130-400); RED CELL DISTRI WIDTH 15.2 % (0-14.5); WHITE BLOOD COUNT 8.1 10*3/uL (4.8-10.8)
[2018-06-01 07:12] LABS: BUN 12 mg/dl (7-24); CHLORIDE 118 mmol/L (98-107); CREATININE 0.96 mg/dL (0.55-1.02); PHOSPHOROUS 2.3 mg/dL (2.5-4.9); SODIUM 146 mmol/L (136-145)
[2018-06-01 08:00] VITALS: BP 138/64; BP 150/66
[2018-06-01 12:00] VITALS: BP 142/58
[2018-06-01 16:00] VITALS: BP 171/68
[2018-06-01 20:00] VITALS: BP 180/68
[2018-06-02] VITALS: BP 126/48
[2018-06-02 06:14] LABS: BASO # 0.1 10*3/uL (0.0-0.1); BASO % 0.7 % (0.0-1.0); EOS # 0.3 10*3/uL (0.0-0.4); EOS % 4.7 % (1.0-4.0); HEMATOCRIT 29.4 % (37.0-47.0); HEMOGLOBIN 9.5 g/dl (12.0-16.0); LYMPH # 1.8 10*3/uL (1.3-4.4); MEAN CELL VOLUME 99.3 fl (81.0-99.0); MEAN CORPUSCULAR HGB 32.1 pg (27.0-31.0); MEAN CORPUSCULAR HGB CONC 32.3 g/dl (33.0-37.0); MEAN PLATELET VOLUME 10.2 fl (9.6-12.3); MONO # 0.4 10*3/uL (0.1-1.0); NEUT # 4.6 10*3/uL (2.3-7.9); NEUT % 63.3 % (47.0-73.0); PLATELET COUNT AUTOMATED 148 10*3/uL (130-400); RED BLOOD COUNT 2.96 10*6/uL (4.10-5.10); RED CELL DISTRI WIDTH 15.1 % (0-14.5); WHITE BLOOD COUNT 7.2 10*3/uL (4.8-10.8)
[2018-06-02 06:31] LABS: BUN 10 mg/dl (7-24); CHLORIDE 116 mmol/L (98-107); CREATININE 0.93 mg/dL (0.55-1.02); SODIUM 145 mmol/L (136-145)
[2018-06-02 07:54] VITALS: BP 140/60; BP 140/80
[2018-06-02] MEDS ORDERED: DILTIAZEM HCL30 MG PO (11:15)
== END 2018-06-02 13:47 | disposition home health service (06) | DRG 871 ==
LOC: ED 15:28 → 5E 16:38 → EDHOLD 16:38 → 5E 17:44
PROVIDERS: Emergency Medicine; Internal Medicine; Student in an Organized Health Care Education/Training Program
PROC: 4B02XSZ Measurement of Cardiac Pacemaker, External Approach (ICD-10-PCS; principal; 2018-05-31)
DX: A41.9 Sepsis, unspecified organism (principal); J18.9 Pneumonia, unspecified organism; N17.0 Acute kidney failure with tubular necrosis; E43 Unspecified severe protein-calorie malnutrition; J44.0 Chronic obstructive pulmonary disease with (acute) lower respiratory infection; N39.0 Urinary tract infection, site not specified; Z68.1 Body mass index [BMI] 19.9 or less, adult; R55 Syncope and collapse; E86.0 Dehydration; K59.00 Constipation, unspecified; R73.9 Hyperglycemia, unspecified; R74.8 Abnormal levels of other serum enzymes; R65.20 Severe sepsis without septic shock; E03.9 Hypothyroidism, unspecified; I10 Essential (primary) hypertension; I25.10 Atherosclerotic heart disease of native coronary artery without angina pectoris; F17.210 Nicotine dependence, cigarettes, uncomplicated; I07.1 Rheumatic tricuspid insufficiency; K21.9 Gastro-esophageal reflux disease without esophagitis; K27.9 Peptic ulcer, site unspecified, unspecified as acute or chronic, without hemorrhage or perforation; F32.9 Major depressive disorder, single episode, unspecified; I73.9 Peripheral vascular disease, unspecified; Z85.118 Personal history of other malignant neoplasm of bronchus and lung; Z85.3 Personal history of malignant neoplasm of breast; I25.2 Old myocardial infarction; Z95.0 Presence of cardiac pacemaker; Z86.718 Personal history of other venous thrombosis and embolism; Z91.81 History of falling; Z90.3 Acquired absence of stomach [part of]; Z90.2 Acquired absence of lung [part of]; Z80.42 Family history of malignant neoplasm of prostate; Z81.1 Family history of alcohol abuse and dependence; Z82.3 Family history of stroke; Z80.8 Family history of malignant neoplasm of other organs or systems; Z88.2 Allergy status to sulfonamides; Z88.8 Allergy status to other drugs, medicaments and biological substances; Z79.82 Long term (current) use of aspirin; Z79.899 Other long term (current) drug therapy; Z90.710 Acquired absence of both cervix and uterus; Z98.61 Coronary angioplasty status

== ENCOUNTER 2018-06-07 21:25 | Inpatient (IN) | payer MEDICARE, MEDICAID ==
[~2018-06-07] VITALS: Ht 162.5 cm; Wt 47.2 kg
--- NOTE | ~2018-06-07 | PR ---
[place], [place] PROGRESS NOTE NAME: [id number] UNIT #: [id number] ROOM: 512 DOCTOR: EMMANUEL GARCIAVIVIANBRADY BIRTHDATE: [birth year] DOS: 06/11/2018 HISTORY OF PRESENT ILLNESS: This is a 78-year-old patient who has presented with abdominal pain, sudden diarrhea of blood material, associated cramp underwent colonoscopic examination and her findings and during colonoscopy was consistent with ischemic colitis. The patient was placed on clear liquid diet. The patient was started on Flagyl and admitted to allow healing if any possibility. Surgical consultation has been placed and IV hydration has been continued. Biopsies consistent with ischemic colitis. Blood cultures negative so now with septicemia. Stool cultures expected to be negative as well as ova and parasite negative for Giardia and cryptosporidium. Urine culture also was no growth expectedly. Latest blood work shows white blood cell was 19 today and H and H of 8 and 25, macrocytic indices, low neutrophil of 86. Comprehensive metabolic panel, GFR greater than 60. Electrolyte hypernatremic, hyperchloremia with 146 and 118, potassium 3.4. Liver function test normal. Her CTA of the abdomen and pelvis was done. Findings most consistent with colitis of descending colon. No pneumatosis coli or portal venous gas. No pericolonic abscess. Diffuse atherosclerotic disease, although the origin of celiac, SMA and GERALD remain patent. Diverticulosis without evidence of acute diverticulitis. A small left pleural effusion, all has been recognized. REVIEW OF SYSTEMS: HEENT: Denies double vision, blurred vision. RESPIRATORY: Denies acute shortness of breath. CARDIOVASCULAR: Denies acute chest pain. DIGESTIVE SYSTEM: No hematemesis, no further hematochezia, hungry. PHYSICAL EXAMINATION: VITAL SIGNS: Stable. HEENT: Head normocephalic, nontraumatic. Mouth and buccal mucosa benign, edentulous and free of aphthae ulcer and thrush. NECK: Supple, no thyromegaly. CHEST: Symmetric anatomy, COPD pattern, no wheeze, no rhonchi. HEART: Normal sinus rhythm, no gallop or murmur. ABDOMEN: Soft. No hepato-organomegaly. Bowel sounds present. No pulsatile mass. EXTREMITIES: No cyanosis, no pedal edema. NEUROLOGIC: Fully alert, oriented to time, place, person. IMPRESSION: Ischemic colitis, status post biopsy proven. Stool cultures negative for infectious causes. PLAN AND DISCUSSION: We are going to proceed with antibiotic coverage and we are going to continue with hydration. We are going to improve her feeding and we are going to monitor the CBC differential. We are not certain at this point if we are in the quiescent phase of her ischemic phase in other word if it is progressively worsening, particularly with the confirmed severe atherosclerotic disease that has been reported on CTA or the stable status and if leukocytosis continues to be worse some, she may need another colonoscopy to rule out if we are facing surgical resection, possibility and with multiple medical issues that [place], [place] PROGRESS NOTE NAME: ABDI ARZOLA Marnie UNIT #: [id number] ROOM: 512 DOCTOR: DELORES BENITEZ MD BIRTHDATE: [birth year] she has on board, concerning point that it may at that stage require to be sent to ____. DELORES BENITEZ MD CM:PNTRANS 1806 0754 DELORES BENITEZ MD 06/12/18 0753 interface
--- NOTE | ~2018-06-07 | EKG ---
[place], [place] ELECTROCARDIOGRAM REPORT NAME: ABDI ARZOLA UNIT #: [id number] ROOM: 512 DOCTOR: CHUY DRAFT REPORT BIRTHDATE: [birth year] [facility] Test Date: 2018-06-07 Test Time: 21:52:20 Pat Name: ABDI ARZOLA Department: 5E Room: 512 Gender: F [employer] Referral Clerk: Darren Multani : 1940 Requested By: GOSIA PRETTY Order Number: [id number] Reading MD: Meaghan Ortiz MD Measurements Intervals [place] Rate: 89 P: 79 [place]: 188 QRS: -20 QRSD: 91 T: 82 QT: 361 QTc: 440 Interpretive Statements Sinus rhythm Probable left atrial enlargement LVH with secondary repolarization abnormality Anterior Q waves, possibly due to LVH Compared to ECG 05/30/2018 15:56:38 No change Electronically Signed On 06-09-2018 7:33:17 PST by Meaghan Ortiz MD CM:EKGRPT:ELECTROCARDIOGRAM REPORT [id number] GOSIA JUAN DRAFT REPORT GOSIA PRETTY DO
--- NOTE | ~2018-06-07 | CON ---
[place], [place] REPORT OF CONSULTATION NAME: ABDI ARZOLA UNIT #: [id number] ROOM: 512 DOCTOR: DELORES BENITEZ MD BIRTHDATE: [birth year] DOS: 06/09/2018 GASTROENDOSCOPIC CONSULTATION HISTORY OF PRESENT ILLNESS: A 78-year-old patient who has presented with chief complaint of abdominal pain, cramp, blood in the stool, diarrhea and she becomes concerned and comes to the Emergency Room, white blood cell was 7, H and H of 9 and 29, macrocytic indices, platelet count was 148. Her basic metabolic panel, kidneys indices normal. Electrolytes and chemistry normal. Blood cultures no growth. Lactic acid. Her INR 1.0. CBC differential white blood cell elevated to 21,000 and comprehensive metabolic panel worsening of BUN and creatinine to 30 and 1.2 with GFR of 48. Liver function tests and troponin remained normal. PTT 24 seconds. Lipase normal. BNP 760 about and CBC about 19,000 white blood cell, again on the followup evaluation. Lactic acid again remained 0.7. Urine cultures were no growth. CT scan of the abdomen reviewed. Main organs all within normal limit. No evidence of pathology, otherwise except staghorn calculi and colitis as well as diverticulosis. They were all recognized. PAST MEDICAL HISTORY: Systemic hypertension, hypothyroidism, diarrhea and blood in the stool, history of peptic ulcer disease, history of advanced COPD, history of lung CA, depression, coronary artery disease, DVTs, breast CA. PAST SURGICAL HISTORY: Hysterectomy, cholecystectomy, partial gastrectomy, right upper lobectomy, breast lumpectomy on the left side, pacemaker, angioplasty all has been recognized. SOCIAL HISTORY: Smoker, nonalcohol consumer. FAMILY HISTORY: ____ carcinoma and uterine carcinoma. MEDICATIONS: List has been reviewed. ALLERGIES: COUMADIN, METAXALONE, AND SULFA DRUGS. REVIEW OF SYSTEMS: HEENT: Denies double vision, blurred vision. RESPIRATORY: Admits chronic shortness of breath. CARDIOVASCULAR: Denies chest pain. DIGESTIVE SYSTEM: No hematemesis; however, hematochezia, diarrhea, and blood in the stool. PHYSICAL EXAMINATION: VITAL SIGNS: Stable and characteristics of COPD. Facial features with. HEENT: Head normocephalic, nontraumatic. Mouth and buccal mucosa benign. NECK: Supple, no thyromegaly, no cervical lymphadenopathy. Mouth, edentulous. No aphthae ulceration, no thrush. CHEST: Symmetric anatomy, equal expansion. However, decreased breath entry both anteroposteriorly reduced. No wheezes. ABDOMEN: Flat, soft. No hepato-organomegaly, nonspecific tenderness. Bowel sounds present. [place], [place] REPORT OF CONSULTATION NAME: ABDI ARZOLA UNIT #: [id number] ROOM: 512 DOCTOR: DELORES BENITEZ MD BIRTHDATE: [birth year] EXTREMITIES: No cyanosis, no pedal edema. NEUROLOGIC: Alert, oriented to time, place, person. Sensory, motor intact. Cranial nerves 2-12 intact. IMPRESSION: Diarrhea and blood in stool. Abnormal CT scan of the abdomen, ruling out ischemic colitis, ruling out infectious colitis unlikely. OTHER ADJUNCTIVE DIAGNOSES: Coronary artery disease, advanced chronic obstructive pulmonary disease, history of deep vein thrombosis, history of breast and lung carcinoma. Other adjunctive diagnoses as identified in past medical, surgical history. We are going to organize a colonoscopy today. DELORES BENITEZ MD CM:CONSTR:REPORT OF CONSULTATION 1800 06/10/18 0458 interface
--- NOTE | ~2018-06-07 | O ---
[place], [place] OPERATIVE NOTE NAME: ABDI ARZOLA UNIT #: [id number] ROOM: 512 DOCTOR: EMMANUEL GARCIA,DELORES BIRTHDATE: [birth year] DOS: 06/09/2018 PROCEDURE: Today's procedure part of investigation of bloody diarrhea with abdominal cramp. This is colonoscopy plus biopsy. PREMEDICATION: Propofol. SCOPE: Olympus folding colonoscope 10L video. REPORT: After putting the patient in left lateral position and application of lubricant to the scope, the scope was introduced. Thereafter, under direct visualization, advanced through the length of colon without difficulty. Rectal pouch is free of pathology. As I approached, the distal sigmoid colon, evidence of ischemic colitis begins and ends at the splenic flexure about with the intense ischemic colitis evidenced with ulcerations. Biopsies obtained. Scope was negotiated through the transverse colon, which is free of pathology as well as ascending colon benign. Some retained stool was noticed. Left-sided ischemic colitis from splenic flexure to about distal sigmoid colon. Multiple biopsies obtained. Air was suctioned out. The patient was extubated, tolerated the procedure well. IMPRESSION: Ischemic colitis, left-sided and extended from splenic to distal sigmoid colon. PLAN AND DISCUSSION: We are going to organize a CTA of the abdomen and pelvis to assure that there is no thrombotic event in the inferior mesenteric branches. At the present time, full liquid would suffice, Flagyl 500 mg q.8 hours would suffice management until we have more data available. This is a true example of a case of ischemic colitis, which does not follow the expected literatures pattern. DELORES BENITEZ MD CM:OPRECORD:OPERATIVE NOTE 1800 0506 DELORES BENITEZ MD 06/10/18 0505 interface
[~2018-06-07 21:25] MED LIST changes: +BUSPIRONE10 MG PO; +DILTIAZEM HCL30 MG PO; +ZESTRIL10 MG PO
[2018-06-07 21:26] VITALS: BP 109/47
[2018-06-07 22:12] LABS: HEMOGLOBIN 12.5 g/dl (12.0-16.0); MEAN CELL VOLUME 100.5 fl (81.0-99.0); MEAN CORPUSCULAR HGB 31.4 pg (27.0-31.0); MEAN CORPUSCULAR HGB CONC 31.3 g/dl (33.0-37.0); MEAN PLATELET VOLUME 10.6 fl (9.6-12.3); PLATELET COUNT AUTOMATED 227 10*3/uL (130-400); RED BLOOD COUNT 3.98 10*6/uL (4.10-5.10); RED CELL DISTRI WIDTH 14.6 % (0-14.5); WHITE BLOOD COUNT 21.6 10*3/uL (4.8-10.8)
[2018-06-07 22:29] LABS: ALBUMIN 2.9 gm/dl (3.1-4.5); ALKALINE PHOSPHATASE 83 U/L (45-117); BUN 30 mg/dl (7-24); CHLORIDE 110 mmol/L (98-107); CREATININE 1.29 mg/dL (0.55-1.02); POTASSIUM 3.6 mmol/L (3.5-5.1); SGOT/AST 22 IU/L (3-35); SGPT/ALT 22 U/L (12-78); SODIUM 143 mmol/L (136-145); TOTAL PROTEIN 6.2 gm/dL (6.4-8.2)
[2018-06-07 22:31] LABS: ATYPICAL LYMPHS 1 % (0-0); PLATELET SUFFICIENCY NORMAL (NORMAL); TOTAL CELLS COUNTED 100 #CELLS
[2018-06-07 22:32] LABS: TROPONIN I < 0.015 ng/ml (<0.045)
[2018-06-07 22:47] VITALS: BP 163/69
[2018-06-07 22:50] LABS: BILIRUBIN NEGATIVE (NEGATIVE); BLOOD NEGATIVE (NEGATIVE); CLARITY SL CLOUDY (CLEAR); COLOR YELLOW (YELLOW); GLUCOSE NEGATIVE (NEGATIVE); KETONE TRACE (NEGATIVE); LEUKO ESTERASE TRACE (NEGATIVE); NITRITE NEGATIVE (NEGATIVE); SPECIFIC GRAVITY 1.025 (1.005-1.030); UROBILINOGEN 0.2 E.U./dl (0.2-1.0)
[2018-06-07 23:26] VITALS: BP 166/68
[2018-06-08] VITALS (8 sets, daily range): BP systolic 90–153; BP diastolic 50–64
[2018-06-08 04:05] LABS: BASO # 0.1 10*3/uL (0.0-0.1); BASO % 0.5 % (0.0-1.0); EOS % 0.1 % (1.0-4.0); HEMATOCRIT 32.4 % (37.0-47.0); HEMOGLOBIN 10.3 g/dl (12.0-16.0); LYMPH # 1.2 10*3/uL (1.3-4.4); MEAN CORPUSCULAR HGB 31.8 pg (27.0-31.0); MEAN CORPUSCULAR HGB CONC 31.8 g/dl (33.0-37.0); MEAN PLATELET VOLUME 10.5 fl (9.6-12.3); MONO # 0.8 10*3/uL (0.1-1.0); MONO % 5.2 % (3.0-9.0); NEUT # 12.7 10*3/uL (2.3-7.9); NEUT % 85.1 % (47.0-73.0); PLATELET COUNT AUTOMATED 174 10*3/uL (130-400); RED BLOOD COUNT 3.24 10*6/uL (4.10-5.10); RED CELL DISTRI WIDTH 14.6 % (0-14.5); WHITE BLOOD COUNT 14.9 10*3/uL (4.8-10.8)
[2018-06-08 04:20] LABS: ALBUMIN 2.5 gm/dl (3.1-4.5); ALKALINE PHOSPHATASE 70 U/L (45-117); BUN 29 mg/dl (7-24); CHLORIDE 114 mmol/L (98-107); CREATININE 1.03 mg/dL (0.55-1.02); PHOSPHOROUS 4.8 mg/dL (2.5-4.9); SGOT/AST 25 IU/L (3-35); SGPT/ALT 19 U/L (12-78); SODIUM 145 mmol/L (136-145); TOTAL PROTEIN 5.2 gm/dL (6.4-8.2)
[2018-06-08 04:22] LABS: FREE T4 0.73 ng/dl (0.76-1.46)
[2018-06-08] MEDS ORDERED: TOPAMAX100 M1 PO (12:16)
[2018-06-09] VITALS (9 sets, daily range): BP systolic 78–134; BP diastolic 40–67
[2018-06-09 06:39] LABS: BASO # 0.1 10*3/uL (0.0-0.1); BASO % 0.4 % (0.0-1.0); EOS % 0.1 % (1.0-4.0); HEMATOCRIT 29.3 % (37.0-47.0); HEMOGLOBIN 9.2 g/dl (12.0-16.0); MEAN CORPUSCULAR HGB 31.7 pg (27.0-31.0); MEAN CORPUSCULAR HGB CONC 31.4 g/dl (33.0-37.0); MEAN PLATELET VOLUME 10.5 fl (9.6-12.3); MONO # 1.1 10*3/uL (0.1-1.0); MONO % 5.8 % (3.0-9.0); NEUT # 16.7 10*3/uL (2.3-7.9); NEUT % 87.9 % (47.0-73.0); PLATELET COUNT AUTOMATED 151 10*3/uL (130-400); RED CELL DISTRI WIDTH 14.6 % (0-14.5)
[2018-06-09 07:06] LABS: ALKALINE PHOSPHATASE 57 U/L (45-117); BUN 20 mg/dl (7-24); CHLORIDE 114 mmol/L (98-107); CREATININE 0.94 mg/dL (0.55-1.02); POTASSIUM 3.5 mmol/L (3.5-5.1); SGOT/AST 20 IU/L (3-35); SGPT/ALT 15 U/L (12-78); SODIUM 145 mmol/L (136-145); TOTAL PROTEIN 4.6 gm/dL (6.4-8.2)
[2018-06-10] VITALS: BP 134/66
[2018-06-10 06:52] LABS: BASO # 0.1 10*3/uL (0.0-0.1); BASO % 0.4 % (0.0-1.0); EOS # 0.1 10*3/uL (0.0-0.4); EOS % 0.2 % (1.0-4.0); HEMATOCRIT 24.8 % (37.0-47.0); HEMOGLOBIN 7.8 g/dl (12.0-16.0); LYMPH # 1.7 10*3/uL (1.3-4.4); LYMPH % 7.8 % (27.0-41.0); MEAN CELL VOLUME 102.9 fl (81.0-99.0); MEAN CORPUSCULAR HGB 32.4 pg (27.0-31.0); MEAN CORPUSCULAR HGB CONC 31.5 g/dl (33.0-37.0); MEAN PLATELET VOLUME 11.1 fl (9.6-12.3); MONO % 4.4 % (3.0-9.0); NEUT # 19.3 10*3/uL (2.3-7.9); NEUT % 86.3 % (47.0-73.0); PLATELET COUNT AUTOMATED 162 10*3/uL (130-400); RED BLOOD COUNT 2.41 10*6/uL (4.10-5.10); RED CELL DISTRI WIDTH 14.9 % (0-14.5); WHITE BLOOD COUNT 22.3 10*3/uL (4.8-10.8)
[2018-06-10 07:40] LABS: ALBUMIN 1.8 gm/dl (3.1-4.5); ALKALINE PHOSPHATASE 68 U/L (45-117); BUN 14 mg/dl (7-24); CHLORIDE 116 mmol/L (98-107); CREATININE 0.83 mg/dL (0.55-1.02); POTASSIUM 3.1 mmol/L (3.5-5.1); SGOT/AST 18 IU/L (3-35); SGPT/ALT 12 U/L (12-78); SODIUM 144 mmol/L (136-145); TOTAL PROTEIN 4.3 gm/dL (6.4-8.2)
[2018-06-10 08:00] VITALS: BP 114/62
[2018-06-10 12:00] VITALS: BP 117/52
[2018-06-10 16:00] VITALS: BP 145/66
[2018-06-10 20:00] VITALS: BP 130/61
[2018-06-10 22:46] LABS: BUN 12 mg/dl (7-24); CHLORIDE 116 mmol/L (98-107); CREATININE 0.81 mg/dL (0.55-1.02); POTASSIUM 3.3 mmol/L (3.5-5.1); SODIUM 147 mmol/L (136-145)
[2018-06-11] VITALS: BP 139/58
[2018-06-11 06:57] LABS: BASO # 0.1 10*3/uL (0.0-0.1); BASO % 0.4 % (0.0-1.0); EOS # 0.2 10*3/uL (0.0-0.4); HEMATOCRIT 25.6 % (37.0-47.0); HEMOGLOBIN 8.1 g/dl (12.0-16.0); LYMPH # 1.5 10*3/uL (1.3-4.4); LYMPH % 7.9 % (27.0-41.0); MEAN CELL VOLUME 102.4 fl (81.0-99.0); MEAN CORPUSCULAR HGB 32.4 pg (27.0-31.0); MEAN CORPUSCULAR HGB CONC 31.6 g/dl (33.0-37.0); MEAN PLATELET VOLUME 10.8 fl (9.6-12.3); MONO # 0.7 10*3/uL (0.1-1.0); MONO % 3.4 % (3.0-9.0); NEUT # 16.6 10*3/uL (2.3-7.9); NEUT % 86.4 % (47.0-73.0); PLATELET COUNT AUTOMATED 191 10*3/uL (130-400); RED CELL DISTRI WIDTH 15.1 % (0-14.5); WHITE BLOOD COUNT 19.2 10*3/uL (4.8-10.8)
[2018-06-11 07:09] LABS: ALBUMIN 1.9 gm/dl (3.1-4.5); BUN 9 mg/dl (7-24); CHLORIDE 118 mmol/L (98-107); CREATININE 0.79 mg/dL (0.55-1.02); POTASSIUM 3.4 mmol/L (3.5-5.1); SGOT/AST 17 IU/L (3-35); SGPT/ALT 11 U/L (12-78); SODIUM 146 mmol/L (136-145)
[2018-06-11 07:10] LABS: ALKALINE PHOSPHATASE 65 U/L (45-117); TOTAL PROTEIN 4.7 gm/dL (6.4-8.2)
[2018-06-11 12:00] VITALS: BP 144/58
[2018-06-11 16:00] VITALS: BP 142/61
[2018-06-11 20:00] VITALS: BP 137/51
[2018-06-12] VITALS: BP 129/52
[2018-06-12 09:00] VITALS: BP 182/94
[2018-06-12 09:31] LABS: BASO # 0.1 10*3/uL (0.0-0.1); BASO % 0.6 % (0.0-1.0); EOS # 0.4 10*3/uL (0.0-0.4); EOS % 2.4 % (1.0-4.0); HEMATOCRIT 30.7 % (37.0-47.0); HEMOGLOBIN 9.6 g/dl (12.0-16.0); LYMPH # 1.4 10*3/uL (1.3-4.4); LYMPH % 9.5 % (27.0-41.0); MEAN CORPUSCULAR HGB 31.6 pg (27.0-31.0); MEAN CORPUSCULAR HGB CONC 31.3 g/dl (33.0-37.0); MEAN PLATELET VOLUME 10.3 fl (9.6-12.3); MONO # 0.5 10*3/uL (0.1-1.0); MONO % 3.2 % (3.0-9.0); NEUT # 12.2 10*3/uL (2.3-7.9); NEUT % 83.6 % (47.0-73.0); RED BLOOD COUNT 3.04 10*6/uL (4.10-5.10); RED CELL DISTRI WIDTH 15.1 % (0-14.5); WHITE BLOOD COUNT 14.6 10*3/uL (4.8-10.8)
[2018-06-12 09:44] LABS: BUN 7 mg/dl (7-24); CHLORIDE 118 mmol/L (98-107); CREATININE 0.87 mg/dL (0.55-1.02); POTASSIUM 3.2 mmol/L (3.5-5.1); SODIUM 148 mmol/L (136-145)
[2018-06-12 10:00] VITALS: BP 156/84
[2018-06-12 10:19] LABS: PLATELET COUNT AUTOMATED 249 10*3/uL (130-400)
[2018-06-12 12:00] VITALS: BP 176/70
[2018-06-12 16:00] VITALS: BP 192/78
[2018-06-12 20:00] VITALS: BP 187/72
[2018-06-13] VITALS (8 sets, daily range): BP systolic 130–190; BP diastolic 51–86
[2018-06-13 07:43] LABS: BASO # 0.1 10*3/uL (0.0-0.1); BASO % 0.8 % (0.0-1.0); EOS # 0.4 10*3/uL (0.0-0.4); EOS % 3.7 % (1.0-4.0); HEMATOCRIT 24.9 % (37.0-47.0); HEMOGLOBIN 7.9 g/dl (12.0-16.0); LYMPH # 1.5 10*3/uL (1.3-4.4); LYMPH % 13.1 % (27.0-41.0); MEAN CELL VOLUME 99.2 fl (81.0-99.0); MEAN CORPUSCULAR HGB 31.5 pg (27.0-31.0); MEAN CORPUSCULAR HGB CONC 31.7 g/dl (33.0-37.0); MEAN PLATELET VOLUME 10.5 fl (9.6-12.3); MONO # 0.6 10*3/uL (0.1-1.0); MONO % 5.7 % (3.0-9.0); NEUT # 8.5 10*3/uL (2.3-7.9); NEUT % 75.7 % (47.0-73.0); PLATELET COUNT AUTOMATED 233 10*3/uL (130-400); RED BLOOD COUNT 2.51 10*6/uL (4.10-5.10); WHITE BLOOD COUNT 11.2 10*3/uL (4.8-10.8)
[2018-06-13 07:56] LABS: BUN 9 mg/dl (7-24); CHLORIDE 118 mmol/L (98-107); CREATININE 0.76 mg/dL (0.55-1.02); POTASSIUM 3.4 mmol/L (3.5-5.1); SODIUM 145 mmol/L (136-145)
[2018-06-13 14:03] LABS: HEMATOCRIT 27.4 % (37.0-47.0); HEMOGLOBIN 8.7 g/dl (12.0-16.0)
[2018-06-14] VITALS: BP 161/65
[2018-06-14 06:44] LABS: HEMATOCRIT 26.8 % (37.0-47.0); HEMOGLOBIN 8.5 g/dl (12.0-16.0); MEAN CORPUSCULAR HGB 31.7 pg (27.0-31.0); MEAN CORPUSCULAR HGB CONC 31.7 g/dl (33.0-37.0); PLATELET COUNT AUTOMATED 288 10*3/uL (130-400); RED BLOOD COUNT 2.68 10*6/uL (4.10-5.10); RED CELL DISTRI WIDTH 15.4 % (0-14.5); WHITE BLOOD COUNT 11.6 10*3/uL (4.8-10.8)
[2018-06-14 07:05] LABS: BASOPHILS 2 % (0-1); TOTAL CELLS COUNTED 100 #CELLS
[2018-06-14 07:06] LABS: PLATELET SUFFICIENCY NORMAL (NORMAL)
[2018-06-14 08:00] VITALS: BP 125/50
[2018-06-14 12:00] VITALS: BP 126/56
[2018-06-14] MEDS ORDERED: AMLODIPINE BESYL5 MG PO (14:23)
[2018-06-14] MEDS ORDERED: COLCHICINE0.6 M1 PO (14:23)
[2018-06-14] MEDS ORDERED: LISINOPRIL20 MG PO (14:23)
[2018-06-14 16:00] VITALS: BP 122/51
== END 2018-06-14 17:38 | disposition other institution (70) | DRG 377 ==
LOC: ED 21:25 → 5E 06-08 00:33 → EDHOLD 06-08 00:33 → 5E 06-08 00:51
PROVIDERS: Emergency Medicine; Internal Medicine; Internal Medicine Gastroenterology; Student in an Organized Health Care Education/Training Program
PROC: 0DBN8ZX Excision of Sigmoid Colon, Via Natural or Artificial Opening Endoscopic, Diagnostic (ICD-10-PCS; principal; 2018-06-09)
PROC: 0DBL8ZX Excision of Transverse Colon, Via Natural or Artificial Opening Endoscopic, Diagnostic (ICD-10-PCS; principal; 2018-06-09)
DX: K57.31 Diverticulosis of large intestine without perforation or abscess with bleeding (principal); N17.0 Acute kidney failure with tubular necrosis; K55.9 Vascular disorder of intestine, unspecified; E44.0 Moderate protein-calorie malnutrition; I50.32 Chronic diastolic (congestive) heart failure; I13.0 Hypertensive heart and chronic kidney disease with heart failure and stage 1 through stage 4 chronic kidney disease, or unspecified chronic kidney disease; E87.0 Hyperosmolality and hypernatremia; Z68.1 Body mass index [BMI] 19.9 or less, adult; K27.4 Chronic or unspecified peptic ulcer, site unspecified, with hemorrhage; R53.1 Weakness; N18.3 Chronic kidney disease, stage 3 (moderate); R55 Syncope and collapse; E86.0 Dehydration; I95.9 Hypotension, unspecified; E87.8 Other disorders of electrolyte and fluid balance, not elsewhere classified; I25.10 Atherosclerotic heart disease of native coronary artery without angina pectoris; E55.9 Vitamin D deficiency, unspecified; M10.9 Gout, unspecified; K21.9 Gastro-esophageal reflux disease without esophagitis; F32.9 Major depressive disorder, single episode, unspecified; I73.9 Peripheral vascular disease, unspecified; J44.9 Chronic obstructive pulmonary disease, unspecified; Z66 Do not resuscitate; Z51.5 Encounter for palliative care; R32 Unspecified urinary incontinence; R15.9 Full incontinence of feces; R73.9 Hyperglycemia, unspecified; K59.00 Constipation, unspecified; E03.9 Hypothyroidism, unspecified; D75.89 Other specified diseases of blood and blood-forming organs; I35.8 Other nonrheumatic aortic valve disorders; Z86.19 Personal history of other infectious and parasitic diseases; Z88.2 Allergy status to sulfonamides; Z88.8 Allergy status to other drugs, medicaments and biological substances; Z85.3 Personal history of malignant neoplasm of breast; Z86.718 Personal history of other venous thrombosis and embolism; Z91.81 History of falling; Z87.442 Personal history of urinary calculi; Z85.118 Personal history of other malignant neoplasm of bronchus and lung; Z92.3 Personal history of irradiation; Z87.01 Personal history of pneumonia (recurrent); Z87.440 Personal history of urinary (tract) infections; Z90.3 Acquired absence of stomach [part of]; Z90.2 Acquired absence of lung [part of]; Z95.0 Presence of cardiac pacemaker; Z90.49 Acquired absence of other specified parts of digestive tract; Z90.710 Acquired absence of both cervix and uterus; Z87.891 Personal history of nicotine dependence; Z80.42 Family history of malignant neoplasm of prostate; Z81.1 Family history of alcohol abuse and dependence; Z82.3 Family history of stroke; Z79.899 Other long term (current) drug therapy; Z79.82 Long term (current) use of aspirin

== ENCOUNTER 2018-06-29 13:37 | Inpatient (IN) | payer MEDICARE, MEDICAID ==
[2018-06-29] VITALS (7 sets, daily range): BP systolic 100–138; BP diastolic 50–62
[~2018-06-29] VITALS: Ht 162.6 cm; Wt 44.5 kg
--- NOTE | ~2018-06-29 | CON ---
[place], [place] REPORT OF CONSULTATION NAME: ABDI ARZOLA UNIT #: [id number] ROOM: 508 DOCTOR: STAN LYNCH,OCTOBER BIRTHDATE: [birth year] DOS: 06/30/2018 HISTORY OF PRESENT ILLNESS: The patient is a 78-year-old female who was admitted from home. She was hospitalized in the beginning of June, underwent a colonoscopy, diagnosed with ischemic colitis. She did not have C. diff at that time. She was discharged to an [facility] in [place]. For rehabilitation, she was discharged home from there approximately a week ago or just over a week ago. On the 06/28/2018, she developed a fever up to 102 as well as diarrhea. She also has abdominal pain. It worsened, on the , she came to [facility]. She is now positive for C. diff. Blood cultures are sterile. Influenza was negative. She has been started on oral vancomycin at 250 mg q. 6 hours. She had WBCs of 42.3 on admission and 44.7 today. She had chest x-ray shows atelectasis in the right base, as does the CT of the abdomen and pelvis. The CT shows severe diffuse colitis and cystic mass in the left pelvis. She is being followed by Surgery. She now has an NG tube in to suction to try to help decompress her gut. She has also been having nausea and vomiting. She had C. diff once before, but it has been 4 or 5 years ago. PAST MEDICAL HISTORY: As above as well as aortic valve sclerosis, coronary artery disease, CHF, chronic kidney disease, COPD, depression, GERD, breast cancer, DVT, GI bleed, kidney stones, lung cancer, hypertension, hypothyroidism, ischemic bowel disease, peptic ulcer disease, vitamin D deficiency, lumpectomy of bilateral breasts, pacemaker placement, right chest MediPort, partial gastrectomy, partial lobectomy. FAMILY MEDICAL HISTORY: Father had prostate cancer, alcoholism as well as CVA. He is . Mother had cervical cancer. SOCIAL HISTORY: She is a reformed smoker. No alcohol or illicit drug use. CURRENT MEDICATIONS: IV vancomycin, vitamin B12, vitamin D, oral vancomycin 250 mg q. 6 hours started today, BuSpar, acetaminophen, lisinopril, gabapentin, Lovenox, Tums, vitamin C, Norvasc, Phenergan, Synthroid, BuSpar, Topamax, Cardizem, Nitrostat, DuoNebs, Levaquin, Restoril, Zofran, Tylenol. ALLERGIES: Include SULFA, METAXALONE, COUMADIN, MUSCLE RELAXANTS. LABORATORY DATA: Labs as reviewed above as well as WBCs 44.7, platelets 295. BUN 46, creatinine 1.86. LFTs within normal limits. Albumin 1.4. Lactic acid 0.6. VITAL SIGNS: Temperature 97.2, pulse 89, respirations 18, BP 118/54. REVIEW OF SYSTEMS: As above in history of present illness. She continues to have diarrhea, although nursing states she has only had one stool today as well as had nausea and vomiting, now with an NG tube into wall suction. Has abdominal distention and pain, was febrile at home up to 102. Here, she has not been above 100.6. No peripheral edema. Has a MediPort in place. No cough or shortness of breath. Currently, has Jordan catheter. Further review of systems [place], [place] REPORT OF CONSULTATION NAME: ABDI ARZOLA UNIT #: [id number] ROOM: 508 DOCTOR: STAN LYNCH,OCTOBER BIRTHDATE: [birth year] is unremarkable. PHYSICAL EXAMINATION: GENERAL: Alert 78-year-old female in obvious discomfort. HEAD, EYES, EARS, NOSE AND THROAT: Normocephalic. NECK: Supple. No thrush. LUNGS: Fairly clear to auscultation bilaterally. Respirations even and unlabored. HEART: Regular rhythm. No murmur appreciated. ABDOMEN: Soft, generalized tenderness, distended, hypoactive bowel sounds. EXTREMITIES: No edema, deformity or cyanosis. SKIN: Warm, dry, bronzed. Overall has a poor musculature and is chronically ill in appearance. Underweight. ASSESSMENT AND PLAN: Severe Clostridium difficile colitis with concern for possible development of toxic megacolon. She does not have any abdominal flat plate to be done in the morning. I will increase her oral vancomycin to 500 mg q. 6 hours. Stop the other antibiotics and add IV Flagyl 500 mg IV q. 8 hours. OCTOBER SYED PIERCE Mecca Alvarez MD CM:CONSTR:REPORT OF CONSULTATION 1559 06/30/18 1623 interface
--- NOTE | ~2018-06-29 | PR ---
[place], [place] PROGRESS NOTE NAME: ABDI ARZOLA UNIT #: [id number] ROOM: 508 DOCTOR: CHRISTIANO KUMAR MD BIRTHDATE: [birth year] DOS: 07/05/2018 NEPHROLOGY PROGRESS NOTE REASON FOR FOLLOWUP: Acute kidney injury and hypernatremia. TIME OF SERVICE: 10:50 a.m. SUBJECTIVE: The patient reports no new complaints. Still feels very weak and bedfast state. IV fluids are continuing. Sodium is slowly improving. White blood cell count remains elevated. Infectious Disease is following. PHYSICAL EXAMINATION: VITAL SIGNS: Blood pressure 130/65, respirations 20, pulse 84 and temperature 97.8. GENERAL: Elderly, chronically ill-appearing woman, lying in bed, awakens to voice. Denies new chest pains or shortness of breath or other complaints. Speech is clear and cogent. Memory is intact. Extraocular muscles are intact. Sclerae are anicteric. Oropharynx is dry. No JVD or lymphadenopathy. LUNGS: Clear. Mild arm edema and anasarca is present in dependent areas. No significant other lower extremity edema is present. ABDOMEN: Soft, nontender, nondistended. SKIN: Without diffuse rashes or breakdowns. LABORATORY DATA AND DIAGNOSTICS: White blood cell count 25.8, hemoglobin 8.7, platelets 299. Sodium 151, down from 155. Potassium 3.3, chloride 126, bicarbonate 17, BUN 49, creatinine 1.26, stable and improving. ASSESSMENT AND PLAN: Acute kidney injury. This is improving. Avoid nephrotoxic medications given her problems with keeping her volume status. I think the lisinopril would be a high risk medication for her to develop recurrent acute kidney injury. I will discontinue this. Other agents can be titrated up as needed for blood pressure control, which for now is acceptable. Hypokalemia. We will add potassium to the maintenance IV fluids and that would be the D5 water that we are using to help correct her hypernatremia and free water deficit, which also is improving. This is discussed with Dr. Cespedes. [place], [place] PROGRESS NOTE NAME: ABDI ARZOLA UNIT #: [id number] ROOM: 508 DOCTOR: CHRISTIANO KUMAR MD BIRTHDATE: [birth year] CHRISTIANO KUMAR MD CM:MILADIS 1624 42 CHRISTIANO KUMAR MD 07/06/182040 interface
--- NOTE | ~2018-06-29 | EKG ---
[place], [place] ELECTROCARDIOGRAM REPORT NAME: ABDI ARZOLA UNIT #: [id number] ROOM: 508 DOCTOR: CHUY DRAFT REPORT BIRTHDATE: [birth year] [facility] Test Date: 2018-06-29 Test Time: 14:16:16 Pat Name: ABDI ARZOLA Department: 5E Room: 508 Gender: F Engineering Specialist: TOM : 1940 Requested By: AMBIKA KIRBY DNP Order Number: [id number] Reading MD: Amada Matt MD Measurements Intervals [place] Rate: 94 P: 74 MA: 193 QRS: -28 QRSD: 98 T: 105 QT: 331 QTc: 414 Interpretive Statements Sinus rhythm Borderline left axis deviation Anteroseptal infarct, age indeterminate Lateral leads are also involved Compared to ECG 06/07/2018 21:52:20 Myocardial infarct finding now present Left ventricular hypertrophy no longer present Early repolarization no longer present Q waves no longer present Electronically Signed On 07-02-2018 10:45:06 PST by Amada Matt MD CM:EKGRPT:ELECTROCARDIOGRAM REPORT 1416 1045 AMBIKA VERA DRAFT REPORT AMBIKA KIRBY DNP
--- NOTE | ~2018-06-29 | CON ---
[place], [place] REPORT OF CONSULTATION NAME: ABDI ARZOLA UNIT #: [id number] ROOM: 508 DOCTOR: MECCA LING MD BIRTHDATE: [birth year] DOS: 06/30/2018 ADDENDUM I agree with the assessment and plan done by the nurse practitioner, Anne Matt. I reviewed the labs and imaging and made the necessary changes in the note. Mecca Ling MD CM:CONSTR:REPORT OF CONSULTATION 1919 08/13/18 1110 interface
--- NOTE | ~2018-06-29 | PR ---
[place], [place] PROGRESS NOTE NAME: ABDI ARZOLA UNIT #: [id number] ROOM: 508 DOCTOR: SCOTT LING MD BIRTHDATE: [birth year] DOS: 06/30/2018 ADDENDUM I agree with the assessment and plan done by the nurse practitioner, Anne Matt. I reviewed the labs and imaging and made the necessary changes in the note. Scott Ling MD CM:PNTRANS 1919 0846 SCOTT LING MD 08/13/18 1118 DELON CLEMENTE [email or web address].TM
[~2018-06-29 13:37] MED LIST changes: +AMLODIPINE BESYL5 MG PO; +COLCHICINE0.6 M1 PO; +TOPAMAX100 M1 PO
[2018-06-29 13:57] LABS: BILIRUBIN NEGATIVE (NEGATIVE); BLOOD NEGATIVE (NEGATIVE); CLARITY CLEAR (CLEAR); COLOR YELLOW (YELLOW); GLUCOSE NEGATIVE (NEGATIVE); KETONE TRACE (NEGATIVE); LEUKO ESTERASE NEGATIVE (NEGATIVE); NITRITE NEGATIVE (NEGATIVE); PH 5.5 (5.0-9.0); SPECIFIC GRAVITY 1.025 (1.005-1.030); UROBILINOGEN 0.2 E.U./dl (0.2-1.0)
[2018-06-29 14:13] LABS: BACTERIA 1+; MUCOUS 1+
[2018-06-29 14:14] LABS: EPITHELIAL CELLS 0-2; RBC 0-2 rbc/hpf (0-2); WBC 0-2 wbc/hpf (0-5)
[2018-06-29 14:21] LABS: HEMATOCRIT 29.8 % (37.0-47.0); HEMOGLOBIN 9.1 g/dl (12.0-16.0); MEAN CELL VOLUME 100.7 fl (81.0-99.0); MEAN CORPUSCULAR HGB 30.7 pg (27.0-31.0); MEAN CORPUSCULAR HGB CONC 30.5 g/dl (33.0-37.0); MEAN PLATELET VOLUME 10.8 fl (9.6-12.3); PLATELET COUNT AUTOMATED 343 10*3/uL (130-400); RED BLOOD COUNT 2.96 10*6/uL (4.10-5.10); RED CELL DISTRI WIDTH 14.6 % (0-14.5)
[2018-06-29 14:23] LABS: WHITE BLOOD COUNT 42.3 10*3/uL (4.8-10.8)
--- NOTE | 2018-06-29 14:23 | NUR ---
NOTIFIED BY LAB PTS WBC 42.3 KIRBY MARKETING ANALYTICS MANAGER NOTIFIED.
[2018-06-29 14:28] LABS: ACT PARTIAL THROMBO TIME 29.9 SECONDS (20.8-31.5); INTERNATIONAL NORM RATIO 1.1 (2.0-3.5)
[2018-06-29 14:36] LABS: ALBUMIN 1.9 gm/dl (3.1-4.5); ALKALINE PHOSPHATASE 92 U/L (45-117); BUN 40 mg/dl (7-24); CHLORIDE 109 mmol/L (98-107); CREATININE 1.96 mg/dL (0.55-1.02); LIPASE 46 U/L (73-393); POTASSIUM 3.3 mmol/L (3.5-5.1); SGOT/AST 12 IU/L (3-35); SGPT/ALT 12 U/L (12-78); SODIUM 140 mmol/L (136-145); TOTAL PROTEIN 5.6 gm/dL (6.4-8.2)
[2018-06-29 14:39] LABS: PLATELET SUFFICIENCY NORMAL (NORMAL); POLYCHROMASIA SLIGHT; TOTAL CELLS COUNTED 100 #CELLS; TROPONIN I < 0.015 ng/ml (<0.045)
--- NOTE | 2018-06-29 14:39 | NUR ---
NOTIFIED BY LAB PTS CALCIUM 6.9. KOFI HOTEL HOUSEKEEPER NOTIFIED.
--- NOTE | 2018-06-29 15:34 | NUR ---
1ST LITER BOLUS OF NORMAL SALINE INFUSED.... 2ND LITER HAS 400 CC BOLUS INFUSING AT THIS TIME. PT TOLERATING ORAL CONTRAST AT THIS TIME.
--- NOTE | 2018-06-29 16:07 | NUR ---
TOTAL FLUID BOLUS 1,400 CC INFUSED.... FLUIDS STARTED AT 125 ML/HR
--- NOTE | 2018-06-29 16:20 | NUR ---
PT HAD SEVERAL LIQUID STOOLS ON BED VAZQUEZ AND WAS CLEANSED WITH FRESH LINENS.
--- NOTE | 2018-06-29 17:37 | NUR ---
PT TO CT SCAN AT THIS TIME.
[2018-06-29] MEDS ORDERED: ANUSOL-HC25 MG R (19:38)
[2018-06-29] MEDS ORDERED: COLACE100 MG PO (19:38)
--- NOTE | 2018-06-29 19:55 | NUR ---
A 78, admitted to , under the services of ARCHANA Darling DO with a diagnosis of RAJAN, COLITIS, SEVERE SEPSIS, PNEUMONIA, HYPOKALEMIA. Chief complaint is WEAKNESS. Patient arrived via ambulance from ER. Monitor applied. Initial assessment completed. Vital signs taken and recorded. ARCHANA DARLING DO notified of admission to the unit. Orders received. See assessment for past medical history, medications and allergies. Patient and/or family oriented to unit. [facility] visitation policy reviewed. Clothing/patient valuable form completed. SUZY SHULTZ
--- NOTE | 2018-06-29 20:54 | NUR ---
DR SPENCER NOTIFIED PT DESIRES TO BE FULL CODE NO INTUBATION AT THIS TIME. MED REC UP TO DATE.
--- NOTE | 2018-06-29 21:13 | NUR ---
PT ADMINISTERED PRN MORPHINE FOR PAIN RATED AT AN 8 OUT OF 10.
--- NOTE | 2018-06-29 22:54 | NUR ---
DR. SPENCER NOTIFIED OF NEED FOR AN ADMIT TO SERVICE ORDER. DR. SALINAS PASS ON TO DAY TEAM IN THE MORNING.
--- NOTE | 2018-06-29 22:55 | NUR ---
DR. SPENCER NOTIFIED OF [facility] RECOMMENDATION TO DECREASE NEURONTIN TO BID FROM TID. OK TO MAKE CHANGE. AND D/C COLCHICINE PT HAD COMPLETED COURSE AT HOME. OK TO D/C.
--- NOTE | 2018-06-29 23:46 | NUR ---
CARDIZEM AND TOPAMAX HELD D/T LOW BP. PT ATTEMPTED TO TAKE PO POTASSIUM. SM EMESIS OF STOMACH BILE VOMITED IMMEDIATELY AFTER. WILL CONTINUE TO MONITOR.
[2018-06-30] VITALS: BP 98/41
--- NOTE | 2018-06-30 01:18 | NUR ---
PT ADMINISTERED PRN MORPHINE FOR PAIN. PT RATES HER PAIN A 6 OUT OF 10.
--- NOTE | 2018-06-30 02:00 | NUR ---
PT RESTING COMFORTABLY. NO S/S OF PAIN.
[2018-06-30 05:45] VITALS: BP 110/72
--- NOTE | 2018-06-30 06:25 | NUR ---
PHYSICIAN WAS NOTIFIED OF DR. VENEGAS CONSULT. RESPONSE OF NOTIFICATION WAS TO INSERT MOY. SUZY SHULTZ
--- NOTE | 2018-06-30 06:55 | NUR ---
WINTER CATHETER INSERTED PER TO FROM DR. VENEGAS. URINE STRAW IN COLOR. CLEAR TURBIDITY. PT TOLERATED WELL WITH NO COMPLAINTS.
--- NOTE | 2018-06-30 07:50 | NUR ---
PT C/O NAUSEA WITH SMALL EMESIS. ADMINISTERED IV ZOFRAN PER ORDER. DR DHILLON WAS IN TO SEE PT AND AWARE. WILL MONITOR FOR EFFECTIVENESS
--- NOTE | 2018-06-30 07:53 | NUR ---
PT. REFUSED AEROSOL TREATMENT D/T VOMITING
[2018-06-30 08:00] VITALS: BP 84/42
[2018-06-30 08:04] LABS: HEMATOCRIT 26.7 % (37.0-47.0); HEMOGLOBIN 8.1 g/dl (12.0-16.0); MEAN CELL VOLUME 102.3 fl (81.0-99.0); MEAN CORPUSCULAR HGB CONC 30.3 g/dl (33.0-37.0); MEAN PLATELET VOLUME 10.9 fl (9.6-12.3); PLATELET COUNT AUTOMATED 295 10*3/uL (130-400); RED BLOOD COUNT 2.61 10*6/uL (4.10-5.10)
[2018-06-30 08:05] LABS: WHITE BLOOD COUNT 44.7 10*3/uL (4.8-10.8)
--- NOTE | 2018-06-30 08:07 | NUR ---
LAB CALLED WITH CRITICAL RESULT WBC 44.7. DR AUSTIN NOTIFIED. NO NEW ORDERS
[2018-06-30 08:10] LABS: ACT PARTIAL THROMBO TIME 30.1 SECONDS (20.8-31.5); INTERNATIONAL NORM RATIO 1.3 (2.0-3.5)
[2018-06-30 08:20] LABS: TOTAL CELLS COUNTED 100 #CELLS
[2018-06-30 08:21] LABS: DOHLE BODIES FEW; PLATELET SUFFICIENCY NORMAL (NORMAL); POLYCHROMASIA SLIGHT; TOXIC GRANULATION SLIGHT
[2018-06-30 08:37] LABS: ALBUMIN 1.4 gm/dl (3.1-4.5); CREATININE 1.86 mg/dL (0.55-1.02); FREE T4 0.79 ng/dl (0.76-1.46); PHOSPHOROUS 3.4 mg/dL (2.5-4.9); POTASSIUM 3.8 mmol/L (3.5-5.1); TOTAL PROTEIN 4.6 gm/dL (6.4-8.2)
--- NOTE | 2018-06-30 08:39 | NUR ---
DR DHILLON CALLED [facility]N WANTS PT IN CONTACT ISOLATION FOR POSSIBLE C-DIFF
[2018-06-30 08:42] LABS: THYROID STIM HORMONE (HS) 5.4 uIU/ml (0.358-4.75)
[2018-06-30 09:56] LABS: VITAMIN D, 25-HYDROXY 18.3 ng/mL (30-100)
--- NOTE | 2018-06-30 10:15 | NUR ---
LAB CALLED WITH CRITICAL FOR PT. +C-DIFF.
--- NOTE | 2018-06-30 10:16 | NUR ---
SPOKE TO DR HENDRICKS REGARDING NEW PT CONSULT. ALSO INFORMED HER OF NEWLY CONFIRMED C-DIFF. ORDERS RECEIVED.
--- NOTE | 2018-06-30 10:20 | NUR ---
CALLED DR AUSTIN AND INFORMED HIM OF CONFIRMED C-DIFF. I ALSO INFORMED HIM OF ORDERS FROM DR HENDRICKS, PTS LOW BP 84/42 MANUAL AND CONTINUED VOMITING.
--- NOTE | 2018-06-30 10:32 | NUR ---
Blanket Binder in to talk to patient. Patient states lives at HOME with SON. There are SEVERAL steps in the home. Physician: EDGARD WEBBER Pharmacy: [facility] Home health services: STATES SHE HAS IT DOES NOT KNOW NAME AT THIS TIME Patient's level of ADLs: MAX ASSIST Patient has working utilities: YES DME: [employer], [employer] Follow-up physician's appointment after d/c: WILL BE MADE BY HOSPITALIST NURSE DIRECTOR ON DISCHARGE Does patient want to access PORTAL?: NO Discharge plan PT STATES SHE WAS JUST RELEASED FROM [facility] 5 DAYS PRIOR TO ADMISSION AND WAS DOING WELL UNTIL DAY OF ADMISSION. SON AND PT STATES SHE WILL NOT GO BACK TO [facility]. THEY ARE OPEN TO [facility] BUT PT HAS TESTED POSITIVE FOR C DIFF AND [facility] DOES NOT HAVE ISOLATION BEDS. WILL CONTINUE TO FOLLOW PT. ANAIS MONTANO
--- NOTE | 2018-06-30 11:03 | NUR ---
PT. REFUSED AEROSOL TREATMENT C/O FEELING NAUSEATED
[2018-06-30 12:00] VITALS: BP 118/54
[2018-06-30 16:00] VITALS: BP 100/52
[2018-06-30 20:00] VITALS: BP 98/54
--- NOTE | 2018-06-30 23:00 | NUR ---
PT GIVEN PHENERGAN TO MOLD MAINTENANCE TECHNICIAN NAUSEA.
[2018-07-01] VITALS (7 sets, daily range): BP systolic 104–161; BP diastolic 48–81
--- NOTE | 2018-07-01 00:30 | NUR ---
INTO SEE PT. PT RESTING AT THIS TIME.
[2018-07-01 06:32] LABS: HEMATOCRIT 27.9 % (37.0-47.0); HEMOGLOBIN 8.4 g/dl (12.0-16.0); MEAN CELL VOLUME 103.7 fl (81.0-99.0); MEAN CORPUSCULAR HGB 31.2 pg (27.0-31.0); MEAN CORPUSCULAR HGB CONC 30.1 g/dl (33.0-37.0); MEAN PLATELET VOLUME 10.6 fl (9.6-12.3); NUCLEATED RED BLOOD CELL 0.1 % (0.0-0.0); NUCLEATED RED BLOOD CELL 0.1 10*3/uL (0.0-0.0); PLATELET COUNT AUTOMATED 348 10*3/uL (130-400); RED BLOOD COUNT 2.69 10*6/uL (4.10-5.10); RED CELL DISTRI WIDTH 15.7 % (0-14.5)
[2018-07-01 06:40] LABS: WHITE BLOOD COUNT 47.4 10*3/uL (4.8-10.8)
--- NOTE | 2018-07-01 06:56 | NUR ---
ALERTED RESIDENT DR ABOUT CRITICAL HIGH WBC. NO NEW ORDERS. WILL CONTINUE TO MONITOR
[2018-07-01 06:59] LABS: ALBUMIN 1.6 gm/dl (3.1-4.5); CREATININE 2.02 mg/dL (0.55-1.02); POTASSIUM 4.2 mmol/L (3.5-5.1)
[2018-07-01 07:00] LABS: TOTAL CELLS COUNTED 100 #CELLS
[2018-07-01 07:01] LABS: BURR CELLS MODERATE; DOHLE BODIES FEW; PLATELET SUFFICIENCY NORMAL (NORMAL); TOXIC GRANULATION MODERATE
--- NOTE | 2018-07-01 07:05 | NUR ---
RESIDENT NOTIFED OF CRITICAL CALCIUM. NO NEW ORDERS.
--- NOTE | 2018-07-01 07:10 | NUR ---
PT AWAKE. BEDSIDE REPORT RECEIVED FROM MERCEDES LIZARRAGA
--- NOTE | 2018-07-01 07:54 | NUR ---
24 HR CHART CHECK COMPLETE
--- NOTE | 2018-07-01 08:05 | NUR ---
Patient requested referrals made to [facility]. contacted facilities and they stated they are unable to accomodate any new patients in isolation at this time at any of the 3 facilities.
--- NOTE | 2018-07-01 18:04 | NUR ---
PT IS REFUSING ALL ORAL MEDICATIONS STATING "I CAN'T SWALLOW THOSE PILLS. I JUST CAN'T. I AM SO TIRED AND SORE FROM DRY HEAVES AND THROWING UP. PLEASE DON'T MAKE ME TAKE THEM." PTS VITALS STABLE AT THIS TIME. I CALLED DR AUSTIN REVIEWED HER MEDS AND INFORMED HIM THAT SHE IS REFUSING PILLS. SHE IS TAKING HER PO VANC.
--- NOTE | 2018-07-01 20:00 | NUR ---
PT RESTING IN BED. NO DSITRESS NOTED AT THIS TIME. RESPS EASY AND REG. NG DRAINING WITHOUT DIFFICULTY. FLOEY INTACT DRAINING VIA GRAVITY. CALL LIGHT IN REACH.
[2018-07-02] VITALS: BP 154/67
--- NOTE | 2018-07-02 00:38 | NUR ---
PT C/O NAUSEA AND BODY PAIN 02/12. PRN MEDS GIVEN. WILL MONITOR
[2018-07-02 07:24] LABS: HEMATOCRIT 26.9 % (37.0-47.0); HEMOGLOBIN 8.2 g/dl (12.0-16.0); MEAN CELL VOLUME 101.9 fl (81.0-99.0); MEAN CORPUSCULAR HGB 31.1 pg (27.0-31.0); MEAN CORPUSCULAR HGB CONC 30.5 g/dl (33.0-37.0); MEAN PLATELET VOLUME 10.4 fl (9.6-12.3); NUCLEATED RED BLOOD CELL 0.1 % (0.0-0.0); PLATELET COUNT AUTOMATED 337 10*3/uL (130-400); RED BLOOD COUNT 2.64 10*6/uL (4.10-5.10); RED CELL DISTRI WIDTH 16.2 % (0-14.5); WHITE BLOOD COUNT 32.8 10*3/uL (4.8-10.8)
[2018-07-02 07:40] LABS: ALBUMIN 1.7 gm/dl (3.1-4.5); CREATININE 1.73 mg/dL (0.55-1.02); POTASSIUM 4.2 mmol/L (3.5-5.1)
--- NOTE | 2018-07-02 07:58 | NUR ---
DR ARIZA NOTIFIED OF CALCIUM OF 6.1
[2018-07-02 08:00] VITALS: BP 142/72
--- NOTE | 2018-07-02 08:00 | NUR ---
IN TO SEE PT AT THIS TIME. NG TUBE PRESENT IN LEFT NARE-CONTINUOUS SUCTION NOTED, PLACEMENT VERIFIED USING AIR BOLUS AND AUSCULATATION. MOUTH CARE PROIVDED AT THIS TIME, DAMP SWABS PROVIDED. PT COMPLAINS OF COUGH WITH THICK SPUTUM THAT GETS STUCK IN BACK OF THROAT-SUCTION PROVIDED. PT DENIES ANY NAUSEA/ ABD PAIN AT THIS TIME, STATES SHE FEELS IF THE ABD DISTENTION HAS DECREASED. PT DENIES ANY OTHER COMPLAINTS AT THIS TIME. CALL LIGHT WITHIN REACH.
[2018-07-02 08:02] LABS: OVALOCYTES FEW; PLATELET SUFFICIENCY NORMAL (NORMAL); TOTAL CELLS COUNTED 100 #CELLS
[2018-07-02 08:03] LABS: TOXIC GRANULATION SLIGHT
--- NOTE | 2018-07-02 09:23 | NUR ---
PT COMPLAINING OF LOWER ABD PAIN AND NAUSEA, RATES PAIN 8/10. MEDICATED WITH IV MORPHINE AND PHENERGAN. WILL MONITOR FOR EFFECTIVENESS.
--- NOTE | 2018-07-02 11:28 | NUR ---
SPOKE WITH PT SON ABOUT DISCHARGE PLANS, TOLD HIM THERE WHERE NO ISOLATION BEDS AVAILABLE AT [facility] AND THAT THE DOCTORS WERE TALKING ABOUT A LTAC. SON STATES SHE IS NOT GOING BACK TO [facility], AND AT THIS POINT DOES NOT WANT LTAC BECAUSE THEY WERE TOO FAR AWAY. EXPLAINED THAT HIS MOTHER WAS NOT READY FOR DISCHARGE YET AND HE STILL HAD TIME TO THINK ABOUT IT. WILL CONTINUE TO FOLLOW.
[2018-07-02 12:00] VITALS: BP 146/62
--- NOTE | 2018-07-02 14:05 | NUR ---
DR VENEGAS HERE AT THIS TIME, NG TUBE REMOVED.
[2018-07-02 16:00] VITALS: BP 150/62
--- NOTE | 2018-07-02 16:13 | NUR ---
DR LING IN TO SEE PT AT THIS TIME.
--- NOTE | 2018-07-02 18:30 | NUR ---
MEDICATED WITH PHENERGAN AT THIS TIME, PER PRN ORDER FOR DRY HEAVES. WILL MONITOR FOR EFFECTIVENESS.
--- NOTE | 2018-07-02 18:49 | NUR ---
PT RESTING MORE COMFORTABLY. PHENERGAN APPEARS EFFECTIVE.
[2018-07-02 20:00] VITALS: BP 188/91
--- NOTE | 2018-07-02 22:26 | NUR ---
PATIENT RESTING IN AN UPRIGHT POSITION. ZOFRAN GIVEN PER PT REQUEST FOR C/O NAUSEA AND DRY HEAVES. PATIENT WAS HAVING DIFFICULTY SWALLOWING PO VANCOMYCIN UPON ASSESSMENT. PATIENT DENIES ANY PAIN AT THIS TIME. 2L NASAL CANNULA APPLIED FOR C/O SHORTNESS OF BREATHE. CALL LIGHT WITHIN REACH. SEE ASSESSMENT.
[2018-07-03] VITALS: BP 153/98; BP 156/86
--- NOTE | 2018-07-03 01:16 | NUR ---
24 HR chart check completed.
--- NOTE | 2018-07-03 01:53 | NUR ---
PRN PHENERGAN GIVEN FOR PATIENT COMPLAINTS OF NAUSEA. CALL LIGHT WITHIN REACH, WILL MONITOR
--- NOTE | 2018-07-03 02:32 | NUR ---
PRN PHENERGAN APPEARS EFFECTIVE, PT SLEEPING
--- NOTE | 2018-07-03 06:22 | NUR ---
NOTIFIED DR. SPENCER AT THIS TIME THAT PATIENT IS SHORT OF BREATH. PATIENT STATES THAT SHE HAS A HISTORY OF ANXIETY AND TAKES BUSPAR FOR IT BUT SHE IS UNABLE TO KEEP ANY MEDICATIONS DOWN. DR. SPENCER STATED HE WOULD ORDER 0.25MG OF IV ATIVAN NOW. PATIENT IS 100% ON 2L NC.
[2018-07-03 06:28] LABS: HEMATOCRIT 28.9 % (37.0-47.0); HEMOGLOBIN 8.9 g/dl (12.0-16.0); MEAN CELL VOLUME 100.3 fl (81.0-99.0); MEAN CORPUSCULAR HGB 30.9 pg (27.0-31.0); MEAN CORPUSCULAR HGB CONC 30.8 g/dl (33.0-37.0); MEAN PLATELET VOLUME 10.4 fl (9.6-12.3); NUCLEATED RED BLOOD CELL 0.2 % (0.0-0.0); PLATELET COUNT AUTOMATED 367 10*3/uL (130-400); RED BLOOD COUNT 2.88 10*6/uL (4.10-5.10); RED CELL DISTRI WIDTH 16.2 % (0-14.5); WHITE BLOOD COUNT 23.9 10*3/uL (4.8-10.8)
[2018-07-03 06:58] LABS: PLATELET SUFFICIENCY NORMAL (NORMAL); POTASSIUM 3.9 mmol/L (3.5-5.1); TOTAL CELLS COUNTED 100 #CELLS
[2018-07-03 06:59] LABS: TOXIC GRANULATION SLIGHT
[2018-07-03 07:00] LABS: CREATININE 1.6 mg/dL (0.55-1.02)
--- NOTE | 2018-07-03 07:06 | NUR ---
ATTEMPTED TO CALL DR. ALICIA WHO IS WITH DR. ARIZA AT THIS TIME FOR CRITICAL CHLORIDE. NO ANSWER,WILL RETRY
--- NOTE | 2018-07-03 08:02 | NUR ---
SEVERAL ATTEMPTS HAVE BEEN MADE TO CONTACT DOCTOR ARIZA'S TEAM ABOUT CRITICAL CHLORIDE. WILL CONTINUE TO ATTEMPT CONTACT.
--- NOTE | 2018-07-03 08:04 | NUR ---
CALLED DR WILKERSON WITH DR TEIXEIRA'S TEAM TO RELAY A MESSAGE TO DR ARIZA AND DR ALICIA ABOUT CRITICAL LAB VALUE. STATES HE WILL PASS ALONG THE MESSAGE TO DR ARIZA'S TEAM.
--- NOTE | 2018-07-03 09:49 | NUR ---
PHENERGAN GIVEN TO PATIENT FOR NAUSEA IN HOPES THAT PATIENT CAN KEEP AM MEDICATIONS DOWN WHEN GIVEN WITHIN THE HOUR.
[2018-07-03 12:00] VITALS: BP 156/67
--- NOTE | 2018-07-03 13:12 | NUR ---
PATIENT IS VERY WEAK. PATIENT HAS BEEN ROTATED TO HER RIGHT SIDE AND RETENTION ENEMA OF VANC HAS BEEN INSTILLED. PATIENT CURRENTLY HOLDING ENEMA IN WELL POSSIBLE. PATIENT EXPRESSES NO COMPLAINTS OF DISTRESS. NO S/S OF DISCOMFORT AT THIS TIME. CALL LIGHT WITHIN REACH.
[2018-07-03 16:00] VITALS: BP 141/56
[2018-07-03 20:00] VITALS: BP 167/67
[2018-07-04] VITALS: BP 151/74
[2018-07-04 07:05] LABS: HEMATOCRIT 31.4 % (37.0-47.0); HEMOGLOBIN 9.4 g/dl (12.0-16.0); MEAN CELL VOLUME 100.3 fl (81.0-99.0); MEAN CORPUSCULAR HGB CONC 29.9 g/dl (33.0-37.0); MEAN PLATELET VOLUME 10.7 fl (9.6-12.3); NUCLEATED RED BLOOD CELL 0.1 % (0.0-0.0); PLATELET COUNT AUTOMATED 343 10*3/uL (130-400); RED BLOOD COUNT 3.13 10*6/uL (4.10-5.10); RED CELL DISTRI WIDTH 16.2 % (0-14.5); WHITE BLOOD COUNT 21.4 10*3/uL (4.8-10.8)
[2018-07-04 07:30] LABS: CREATININE 1.26 mg/dL (0.55-1.02); PHOSPHOROUS 2.5 mg/dL (2.5-4.9); POTASSIUM 3.5 mmol/L (3.5-5.1)
[2018-07-04 07:33] LABS: TOTAL CELLS COUNTED 100 #CELLS
[2018-07-04 07:35] LABS: PLATELET SUFFICIENCY NORMAL (NORMAL); TOXIC GRANULATION SLIGHT
[2018-07-04 07:36] LABS: BURR CELLS FEW
--- NOTE | 2018-07-04 07:40 | NUR ---
PT AWAKE. BEDSIDE REPORT RECEIVED FROM MARISSA LIZARRAGA. NO PT QUESTIONS/CONCERNS AT THIS TIME. BED LOW
--- NOTE | 2018-07-04 08:04 | NUR ---
PTS CHLORIDE CRITICAL HIGH 130. DR ALICIA NOTIFIED
[2018-07-04 12:00] VITALS: BP 133/69
--- NOTE | 2018-07-04 12:09 | NUR ---
CALLED ANSWERING SERVICE REGARDING NEW PT CONSULT FOR DR KUMAR. SPOKE TO FLORIAN. WAITING AUDIT REVIEWER BACK
--- NOTE | 2018-07-04 14:29 | NUR ---
DR KUMAR CALLED. ORDER RECEIVED TO INCREASE RATE OF D5W TO 100 ML/HR
[2018-07-04 16:00] VITALS: BP 148/64
[2018-07-04 20:00] VITALS: BP 140/68
[2018-07-05] VITALS: BP 143/69
--- NOTE | 2018-07-05 00:50 | NUR ---
PRN ORDER FOR ZOFRAN GIVEN FOR C/O NAUSEA. WILL MONITOR EFFECTIVENESS OF MEDICATION
[2018-07-05 07:26] LABS: HEMATOCRIT 27.8 % (37.0-47.0); HEMOGLOBIN 8.7 g/dl (12.0-16.0); MEAN CELL VOLUME 100.4 fl (81.0-99.0); MEAN CORPUSCULAR HGB 31.4 pg (27.0-31.0); MEAN CORPUSCULAR HGB CONC 31.3 g/dl (33.0-37.0); MEAN PLATELET VOLUME 10.8 fl (9.6-12.3); NUCLEATED RED BLOOD CELL 0.1 % (0.0-0.0); PLATELET COUNT AUTOMATED 299 10*3/uL (130-400); RED BLOOD COUNT 2.77 10*6/uL (4.10-5.10); RED CELL DISTRI WIDTH 16.3 % (0-14.5); WHITE BLOOD COUNT 25.8 10*3/uL (4.8-10.8)
[2018-07-05 07:51] LABS: OVALOCYTES FEW; PLASMA CELL 1 % (0-0); PLATELET SUFFICIENCY NORMAL (NORMAL); SCHISTOCYTES FEW; TOTAL CELLS COUNTED 100 #CELLS; TOXIC GRANULATION SLIGHT
[2018-07-05 07:52] LABS: BURR CELLS FEW
[2018-07-05 07:55] LABS: ALBUMIN 1.5 gm/dl (3.1-4.5); CREATININE 1.26 mg/dL (0.55-1.02); POTASSIUM 3.3 mmol/L (3.5-5.1); TOTAL PROTEIN 3.9 gm/dL (6.4-8.2)
[2018-07-05 08:00] VITALS: BP 130/65
[2018-07-05 12:00] VITALS: BP 130/65
--- NOTE | 2018-07-05 13:11 | NUR ---
SLEEPING, SON ASKED TO NOT DISTURB PT AT THIS TIME. INFORMED HIM THAT THIS NURSE WOULD BE BACK ARND 1400 FOR SCHEDULED MEDS. SAID OK.
[2018-07-05 16:00] VITALS: BP 152/75
--- NOTE | 2018-07-05 16:31 | NUR ---
PHENERGAN AND MORPHINE SEEMS TO BE EFFECTIVE. PT IN BED. SLEEPING. NO SXS OF DISTRESS NOTED. CALL LIGHT IN REACH. BED ALARM ON.
--- NOTE | 2018-07-05 18:03 | NUR ---
PT REFUSING ORAL MEDS DUE TO NAUSEA DESPITE PHENERGAN GIVEN EARLIER. PRN ZOFRAN GIVEN. WILL MONITOR.
[2018-07-05 20:00] VITALS: BP 151/65
[2018-07-06] VITALS: BP 114/61
[2018-07-06 06:47] LABS: HEMATOCRIT 25.1 % (37.0-47.0); HEMOGLOBIN 7.9 g/dl (12.0-16.0); MEAN CELL VOLUME 99.6 fl (81.0-99.0); MEAN CORPUSCULAR HGB 31.3 pg (27.0-31.0); MEAN CORPUSCULAR HGB CONC 31.5 g/dl (33.0-37.0); NUCLEATED RED BLOOD CELL 0.2 % (0.0-0.0); PLATELET COUNT AUTOMATED 262 10*3/uL (130-400); RED BLOOD COUNT 2.52 10*6/uL (4.10-5.10); RED CELL DISTRI WIDTH 16.3 % (0-14.5); WHITE BLOOD COUNT 25.8 10*3/uL (4.8-10.8)
[2018-07-06 06:59] LABS: CHLORIDE 121 mmol/L (98-107); CREATININE 1.02 mg/dL (0.55-1.02); POTASSIUM 3.5 mmol/L (3.5-5.1); SODIUM 148 mmol/L (136-145)
[2018-07-06 07:30] LABS: POLYCHROMASIA SLIGHT; TOTAL CELLS COUNTED 100 #CELLS
[2018-07-06 07:31] LABS: TOXIC GRANULATION SLIGHT
[2018-07-06 07:32] LABS: PLATELET SUFFICIENCY NORMAL (NORMAL)
[2018-07-06 07:43] LABS: BUN 33 mg/dl (7-24)
[2018-07-06 08:00] VITALS: BP 116/62
--- NOTE | 2018-07-06 08:30 | NUR ---
PATIENT SLEEPING QUIETLY IN BED. AROUSES EASILY. RESPIRATIONS EASY, REGULAR ON RA. PT STATES FEELING A BIT BETTER. IVF MAINTAINED PER ORDER. WILL CONTINUE TO MONITOR. VSS. CALL LIGHT WITHIN REACH.
--- NOTE | 2018-07-06 10:30 | NUR ---
PATIENT REFUSING SCHEDULED 10AM MEDS DUE TO NAUSEA. WILL CONTINUE TO MONITOR.
[2018-07-06 12:00] VITALS: BP 137/71
--- NOTE | 2018-07-06 12:30 | NUR ---
IV PHENERGAN GIVEN VIA SYRINGE PER PRN ORDER FOR C/O NAUSEA. WILL MONITOR EFEFCTIVENESS.
--- NOTE | 2018-07-06 14:55 | NUR ---
PT MEDICATED WITH IV ZOFRAN PER PRN ORDER FOR C/O NAUSEA. WILL MONITOR EFFECTIVENESS.
--- NOTE | 2018-07-06 15:15 | NUR ---
PT MEDICATED WITH IV MORPHINE PER PRN ORDER FOR C/O ABD PAIN. RATES PAIN 02/12. WILL MONITOR EFFECTIVENESS.
--- NOTE | 2018-07-06 15:45 | NUR ---
CATHETER REMOVED PER POLICY. 400CC OF DARIANA URINE RECORDED FOR OUTPUT.
[2018-07-06 16:00] VITALS: BP 138/70
--- NOTE | 2018-07-06 16:44 | NUR ---
PATIENT REFUSING ROUTINE PO MEDS AT THIS TIME DUE TO NAUSEA.
--- NOTE | 2018-07-06 16:54 | NUR ---
NOTIFIED DR AUSTIN AT THIS TIME RE: PATIENT C/O NAUSEA AND PAIN WITH SWALLOWING AND ALL AVAILABLE PRN MEDICATIONS HAVE BEEN GIVEN PREVIOUSLY AND NOT YET ABLE TO BE GIVEN. ALSO INFORMED DR AUSTIN THAT PATIENT HAS NOT TAKEN ANY MEDICATIONS BY MOUTH SINCE Thursday07/04/18 DUE TO PAIN WITH SWALLOWING. STATES HE WILL LOOK INTO SITUATION AT THIS TIME.
--- NOTE | 2018-07-06 19:15 | NUR ---
PATIENT C/O BELLY PAIN, MEDICATED WITH PRN IV MORPHINE AT THIS TIME. WILL MONITOR FOR EFFECTIVENESS. CALL LIGHT WITHIN REACH.
[2018-07-06 20:00] VITALS: BP 110/60
--- NOTE | 2018-07-06 20:28 | NUR ---
PATIENT RESTING IN BED WITH EYES CLOSED AT THIS TIME, DOES NOT APPEAR TO BE IN ANY DISTRESS. PRN MORPHINE APPEARS EFFECTIVE AT THIS TIME, WILL CONTINUE TO MONITOR PATIENT, CALL LIGHT WITHIN REACH.
--- NOTE | 2018-07-06 23:07 | NUR ---
PATIENT C/O NAUSEA, MEDICATED WITH PRN IV ZOFRAN. WILL MONITOR FOR EFFECTIVENESS. CALL LIGHT WITHIN REACH.
[2018-07-07] VITALS: BP 129/50
[2018-07-07 07:06] LABS: HEMATOCRIT 25.5 % (37.0-47.0); MEAN CELL VOLUME 100.4 fl (81.0-99.0); MEAN CORPUSCULAR HGB 31.5 pg (27.0-31.0); MEAN CORPUSCULAR HGB CONC 31.4 g/dl (33.0-37.0); MEAN PLATELET VOLUME 10.9 fl (9.6-12.3); NUCLEATED RED BLOOD CELL 0.2 % (0.0-0.0); PLATELET COUNT AUTOMATED 290 10*3/uL (130-400); RED BLOOD COUNT 2.54 10*6/uL (4.10-5.10); RED CELL DISTRI WIDTH 16.7 % (0-14.5); WHITE BLOOD COUNT 24.4 10*3/uL (4.8-10.8)
[2018-07-07 07:15] LABS: CHLORIDE 120 mmol/L (98-107); CREATININE 0.88 mg/dL (0.55-1.02); POTASSIUM 3.7 mmol/L (3.5-5.1); SODIUM 145 mmol/L (136-145)
[2018-07-07 07:19] LABS: BUN 20 mg/dl (7-24)
--- NOTE | 2018-07-07 07:34 | NUR ---
24 HR chart check completed.
[2018-07-07 08:00] VITALS: BP 128/70; BP 144/54
[2018-07-07 08:09] LABS: TOTAL CELLS COUNTED 100 #CELLS
[2018-07-07 08:10] LABS: PLATELET SUFFICIENCY NORMAL (NORMAL); POLYCHROMASIA SLIGHT; TOXIC GRANULATION SLIGHT
--- NOTE | 2018-07-07 08:44 | NUR ---
MEDICATED WITH IV PHENERGAN ORDERED PER PT REQUEST FOR C/O NAUSEA.
--- NOTE | 2018-07-07 11:09 | NUR ---
Occupational Therapy evaluation completed on 5 with full eval to follow. Precautions include fall risk,liquid diet, nausea/vomiting, IV UE, acute debility, poor sitting /standing tolerance, +2 transfer assist, assist in all ADLs d/t weakness. Patient was able to agree to sitting up for 15-20 min with nausea as nurse reports patient has not been out of bed since admission. Patient is high complexity level [id number] via chart review, testing and evaluation. Recommend OT per POC and LTACH for medical stabilization then SNF to maximize ADLs and safety for return home with son. Thank you for this referral. Daiana Kyle OTR/l
[2018-07-07 12:00] VITALS: BP 129/70
--- NOTE | 2018-07-07 12:00 | NUR ---
UP TO CHAIR X1 HR.
--- NOTE | 2018-07-07 12:04 | NUR ---
PHYSICAL THERAPY APtient evaluated on 5, full evaluation to follow. Continue with PT as per plan of care with fall, C diff, mod (A) x 2 and alarm precautions. May require LTAC prior to SNF for medical involvement. PAtient is high complexity via chart review, tests and evaluation: [id number]. Thank you for this referral. Danita Fleming,PT
--- NOTE | 2018-07-07 13:12 | NUR ---
MEDICATED WITH IV DILAUDID ORDERED PER PT REQUEST FOR C/O STOMACH PAIN.
--- NOTE | 2018-07-07 14:35 | NUR ---
Contacted Cristina at [facility] and faxed referral for LTACH. Cristina will be here at approximately 4PM to review patient. Will follow
--- NOTE | 2018-07-07 15:00 | NUR ---
MEDICation effective for pain.
[2018-07-07 16:00] VITALS: BP 117/62
[2018-07-07 20:00] VITALS: BP 122/66
--- NOTE | 2018-07-07 20:07 | NUR ---
MEDICATED WITH PRN ZOFRAN FOR C/O NAUSEA.
--- NOTE | 2018-07-07 21:07 | NUR ---
ZOFRAN EFFECTIVE PER PATIENT
--- NOTE | 2018-07-07 21:48 | NUR ---
24 HR chart check completed.
--- NOTE | 2018-07-07 23:58 | NUR ---
PATIENT REFUSING ANTIBIOTIC. STATES SHE DOES NOT WANT TO DO IT TONIGHT, BUT WILL DO IT IN THE MORNING
[2018-07-08] VITALS: BP 125/64
--- NOTE | 2018-07-08 03:28 | NUR ---
PATIENT RESTING IN BED WITH NO NEEDS MADE. BED IN LOWEST POSITION, CALL LIGHT IN REACH
[2018-07-08 06:53] LABS: HEMATOCRIT 23.9 % (37.0-47.0); HEMOGLOBIN 7.4 g/dl (12.0-16.0); MEAN CELL VOLUME 100.4 fl (81.0-99.0); MEAN CORPUSCULAR HGB 31.1 pg (27.0-31.0); MEAN PLATELET VOLUME 11.3 fl (9.6-12.3); NUCLEATED RED BLOOD CELL 0.1 % (0.0-0.0); PLATELET COUNT AUTOMATED 273 10*3/uL (130-400); RED BLOOD COUNT 2.38 10*6/uL (4.10-5.10); RED CELL DISTRI WIDTH 16.6 % (0-14.5); WHITE BLOOD COUNT 20.9 10*3/uL (4.8-10.8)
[2018-07-08 07:16] LABS: PLATELET SUFFICIENCY NORMAL (NORMAL); POLYCHROMASIA SLIGHT; TOTAL CELLS COUNTED 100 #CELLS; TOXIC GRANULATION MODERATE
[2018-07-08 07:20] LABS: ALBUMIN 1.4 gm/dl (3.1-4.5); ALKALINE PHOSPHATASE 47 U/L (45-117); BUN 17 mg/dl (7-24); CHLORIDE 121 mmol/L (98-107); CREATININE 0.79 mg/dL (0.55-1.02); PHOSPHOROUS 2.4 mg/dL (2.5-4.9); POTASSIUM 3.9 mmol/L (3.5-5.1); SGOT/AST 10 IU/L (3-35); SODIUM 147 mmol/L (136-145); TOTAL PROTEIN 3.7 gm/dL (6.4-8.2)
[2018-07-08 07:23] LABS: SGPT/ALT 7 U/L (12-78)
[2018-07-08 08:00] VITALS: BP 163/71; BP 168/70
--- NOTE | 2018-07-08 08:14 | NUR ---
Marilyn stated they are willing to accept this patient and are meeting with patients son today at 1PM to discuss details. Son stated "She is NOT being discharged today, I'm not ready". Marilyn will discuss discharge with son again this afternoon. Will follow
--- NOTE | 2018-07-08 08:33 | NUR ---
ABDI ARZOLA [id number] Please refer to the physician's history and physical for past medical history, comorbid conditions, and allergies. Diagnosis: RAJAN, COLITIS, SEVERE SEPSIS, PNEUMONIA, HYPOKALEMI Jac Score: 12,HIGH RISK WOUND DESCRIPTIONS: Coccyx is red and blanchable at time of assessment. No open areas at time of assessment. No drainage at time of assessment. Surface the patient is resting on: Isoflex SKIN PREVENTION RECOMMENDATION: 1. Pressure redistribution support surface as appropriate 2. Elevate heels 3. Remove boots/TEDS every shift and reapply 4. Head of bed 30 degrees as tolerated 5. Assess nutrition and hydration 6. Manage moisture 7. Avoid the use of containment devices while in bed 8. Use absorptive products on surfaces limit layers of linens on bed 9. Turn and reposition every 1-2 hours in bed and every 1 hour in chair as tolerated 10. Weight shifts every 15 minutes while up in chair 11. Offloading with pillows or device to keep heels elevated off bed 12. Monitor skin at least every shift 13. Inspect under medical devices twice a day WOUND TREATMENT RECOMMENDATIONS: Apply sureprep to coccyx area allow time to dry then cover with optifoam gentle. Wheelchair cushion when oob, heel raiser pro boots while in bed.
--- NOTE | 2018-07-08 08:38 | NUR ---
MEDICATED WITH IV PHENERGAN AND MORPHINE ORDERED PER PT REQUEST FOR C/O NAUSEA AND PAIN.
--- NOTE | 2018-07-08 10:47 | NUR ---
PHYSICAL THERAPY Patient seen this am 1:1 for therapy visit and was supine in bed upon therapist arrival. Patient presented with continuous O2-3L via NC and reports not feeling well with several episodes of Emesis. Patient declined sitting up EOB, however agreed to and performed supine B LE therex, all planes x 15 reps each without c/o. Patient remained in bed with call light, tray table and bed alarm activated for safety. Will continue per POC as tolerated, total treatment time 13 minutes. Emiliano Jensen, FRONT END ALIGNMENT SPECIALIST
[2018-07-08 12:00] VITALS: BP 116/70
--- NOTE | 2018-07-08 13:16 | NUR ---
Recommend follow up for wound care in outpatient setting patient being discharge to another facility at this time.
--- NOTE | 2018-07-08 14:00 | NUR ---
MEDICATIONS EFFECTIVE FOR NAUSEA/PAIN.
--- NOTE | 2018-07-08 14:02 | NUR ---
Dr. Fuentes notified of wound care recommendations.
--- NOTE | 2018-07-08 14:40 | NUR ---
Patient, patients son and Yajaira from [facility] met this afternoon. Patient and son are all in agreement for [facility], however the son stated he does not want patient discharged today as he needs time to "get things together" and "get prepared" for his mother to go to [facility]. Notified hospitalist group
--- NOTE | 2018-07-08 15:20 | NUR ---
OT NOTE Pt was seen this P.M. 1:1 for 15 minute OT session. Upon arrival pt was supine in bed, pt identified by name and . Pt had reports of stomach pain and nausea. Pt transferred supine to sit EOB with modA. While sitting EOB pt participated in tasks that involved reaching over all planes and weight shifting to challenge sitting balance needed for increased I in self care tasks and functional transfers. Pt was able to maintain F/F- sitting balance throughout. Pt was requeting to lay back down at this time due to increased stomach pain. Pt transferred sit to supine with maxA X 2. There she was left with call light in hand, tray table in place, and bed alarm activated for safety. Continue with rec D/ C plan to LTACH then SNF. RONI Mishra/Moon
[2018-07-08 16:00] VITALS: BP 131/63
--- NOTE | 2018-07-08 17:00 | NUR ---
Patient resting quietly with no c/o discomfort. Respirations easy and regular. Vital signs stable. No overt distress. MICHELLE KNOX
[2018-07-08 20:00] VITALS: BP 118/67
--- NOTE | 2018-07-08 21:00 | NUR ---
PT PUT ON BEDPAN AND STATES SHE IS FEELING "BETTER" SINCE RECENT CHANGES IN TREATMENT.
[2018-07-09] VITALS: BP 114/59
--- NOTE | 2018-07-09 | NUR ---
PT RESTING IN BED IVF INFUSING WITHOUT DIFFICULTY PER MD ORDERS. RESPS EASY AND REG. NO ACUTE DISTRESS NOTED. CALL LIGHT IN REACH.
[2018-07-09 06:26] LABS: HEMATOCRIT 23.2 % (37.0-47.0); HEMOGLOBIN 7.1 g/dl (12.0-16.0); MEAN CELL VOLUME 101.3 fl (81.0-99.0); MEAN CORPUSCULAR HGB CONC 30.6 g/dl (33.0-37.0); MEAN PLATELET VOLUME 11.2 fl (9.6-12.3); NUCLEATED RED BLOOD CELL 0.1 % (0.0-0.0); PLATELET COUNT AUTOMATED 274 10*3/uL (130-400); RED BLOOD COUNT 2.29 10*6/uL (4.10-5.10); WHITE BLOOD COUNT 15.9 10*3/uL (4.8-10.8)
[2018-07-09 06:34] LABS: BUN 20 mg/dl (7-24); CHLORIDE 116 mmol/L (98-107); CREATININE 0.65 mg/dL (0.55-1.02); POTASSIUM 4.3 mmol/L (3.5-5.1); SODIUM 147 mmol/L (136-145)
[2018-07-09 07:04] LABS: PLATELET SUFFICIENCY NORMAL (NORMAL); POLYCHROMASIA SLIGHT; TOTAL CELLS COUNTED 100 #CELLS; TOXIC GRANULATION SLIGHT
[2018-07-09 07:06] LABS: SCHISTOCYTES FEW
[2018-07-09 08:00] VITALS: BP 126/56
--- NOTE | 2018-07-09 09:16 | NUR ---
[facility] accepting patient, would like patient discharged today and set up for 1 PM. Christina Saldana notified.
--- NOTE | 2018-07-09 09:53 | NUR ---
OT NOTE Pt was seen this A.M. 1:1 for 18 minute OT session. Upon arrival pt was supine in bed, pt identified by name and . Pt presented to therapy with continous 3L-O2 via NC which she remained on throughout entire session and IV treatment. Pt transferred supine to sit EOB with Howard for assist with UB. While sitting EOB challenged pt's sitting balance needed for increased I and enhanced safety in self care tasks, pt was able to maintain F- sitting balance throughout requiring Howard/UE support. Completed sit to stand transfer from bed level with modA where her static standing tolerance was challenged and pt was able to tolerate aprox 20-30 seconds at a time before sitting due to fatigue. Pt was left sitting upright in recliner with call light in hand, tray table in place, and body alarm on for safety. Continue with rec D/C plan to LTACH then SNF. RONI Mishra/Moon
[2018-07-09] MEDS ORDERED: PROTONIX40 M1 IV (10:14)
[2018-07-09] MEDS ORDERED: Nystatin 100,000 UNI PO (10:14)
[2018-07-09] MEDS ORDERED: ONDANSETRON4 MG/2 M3 IV (10:14)
[2018-07-09] MEDS ORDERED: GABAPENTIN400 MG PO (10:14)
[2018-07-09] MEDS ORDERED: TYLENOL325 M2 PO (10:14)
[2018-07-09] MEDS ORDERED: TOPAMAX25 M3 PO (10:14)
[2018-07-09] MEDS ORDERED: VANCOMYCIN250 MG/2.5 PO (10:14)
[2018-07-09] MEDS ORDERED: MORPHINE SU4 MG/1 M3 IV (10:21)
--- NOTE | 2018-07-09 10:50 | NUR ---
PHYSICAL THERAPY Patient seen this am 1:1 for therapy visit and was supine in bed upon therapist arrival. Patient presented with continuos IV and O2-3L via NC. Patient stated she was very weak this morning, but feeling a little better with no new bouts of Emesis. Patient transfers supine to sit EOB with MAX A and tolerates statc sit x 4 minutes, CGA then sit to stand, MUSIC STORE MANAGER/Mod, completing SPT to bedside chair. Patient fatigues quickly and remained in bedside chair with call light, telephone, tray table and body alarm for safety. Will continue per POC as tolerated, total treatment time 13 minutes. Emiliano Jensen, BRAKE TESTER
--- NOTE | 2018-07-09 11:00 | NUR ---
PATIENT REQUESTING MEDICATION FOR NAUSEA. ZOFRAN ADMINISTERED PRESCRIBED. WILL MONITOR FOR EFFECTIVENESS.
--- NOTE | 2018-07-09 11:06 | NUR ---
Patient discharged to [facility], transportation scheduled for 2 PM with [facility]. Marilyn/process steward notified.
[2018-07-09 12:00] VITALS: BP 124/52
--- NOTE | 2018-07-09 13:18 | NUR ---
PHYSICAL THERAPY CO-SIGN I approve of the Phyical Therapy notes written above. ALEA MCINTYRE PT
--- NOTE | 2018-07-09 15:05 | NUR ---
OCCUPATIONAL THERAPY CO-SIGN I approve of the Occupational Therapy notes written above. ROSA SNIDER OTR/Moon
--- NOTE | 2018-07-09 16:20 | NUR ---
Discharge instructions reviewed with patient/family. Patient receptive and verbalizes understanding. Follow-up care arranged. Written instructions given to patient/family. PATIENT DISCHARGED TO [facility]. ROSEMARY MONTANO
--- NOTE | 2018-07-09 16:20 | NUR ---
PATIENT DISCHARGED TO [facility]IA [facility]. AMBULETTE DRIVER REMOVED.
== END 2018-07-09 16:20 | DRG 871 ==
LOC: ED 13:37 → 5E 19:19 → EDHOLD 19:19 → 5E 20:02
PROVIDERS: Emergency Medicine; Family Medicine; Internal Medicine; Nurse Practitioner Family; Registered Nurse; Student in an Organized Health Care Education/Training Program; ADMIT Internal Medicine
PROC: 0D9670Z Drainage of Stomach with Drainage Device, Via Natural or Artificial Opening (ICD-10-PCS; principal; 2018-06-30)
PROC: 0DJD8ZZ Inspection of Lower Intestinal Tract, Via Natural or Artificial Opening Endoscopic (ICD-10-PCS; 2018-07-01)
PROC: 3E0336Z Introduction of Nutritional Substance into Peripheral Vein, Percutaneous Approach (ICD-10-PCS; 2018-07-07)
DX: A41.9 Sepsis, unspecified organism (principal); N17.0 Acute kidney failure with tubular necrosis; J18.9 Pneumonia, unspecified organism; A04.72 Enterocolitis due to Clostridium difficile, not specified as recurrent; E44.0 Moderate protein-calorie malnutrition; I50.32 Chronic diastolic (congestive) heart failure; J44.0 Chronic obstructive pulmonary disease with (acute) lower respiratory infection; K55.9 Vascular disorder of intestine, unspecified; I13.0 Hypertensive heart and chronic kidney disease with heart failure and stage 1 through stage 4 chronic kidney disease, or unspecified chronic kidney disease; E87.0 Hyperosmolality and hypernatremia; J98.11 Atelectasis; Z68.1 Body mass index [BMI] 19.9 or less, adult; N18.3 Chronic kidney disease, stage 3 (moderate); E87.6 Hypokalemia; R65.20 Severe sepsis without septic shock; E53.8 Deficiency of other specified B group vitamins; D53.9 Nutritional anemia, unspecified; I25.10 Atherosclerotic heart disease of native coronary artery without angina pectoris; K21.9 Gastro-esophageal reflux disease without esophagitis; I73.9 Peripheral vascular disease, unspecified; F32.9 Major depressive disorder, single episode, unspecified; E03.9 Hypothyroidism, unspecified; E55.9 Vitamin D deficiency, unspecified; Z85.118 Personal history of other malignant neoplasm of bronchus and lung; Z90.2 Acquired absence of lung [part of]; Z95.0 Presence of cardiac pacemaker; Z90.49 Acquired absence of other specified parts of digestive tract; Z90.3 Acquired absence of stomach [part of]; Z90.710 Acquired absence of both cervix and uterus; Z88.8 Allergy status to other drugs, medicaments and biological substances; Z88.2 Allergy status to sulfonamides; Z87.891 Personal history of nicotine dependence; Z80.42 Family history of malignant neoplasm of prostate; Z80.8 Family history of malignant neoplasm of other organs or systems; Z81.1 Family history of alcohol abuse and dependence; Z82.3 Family history of stroke; Z85.3 Personal history of malignant neoplasm of breast; Z86.718 Personal history of other venous thrombosis and embolism; Z91.81 History of falling; Z87.442 Personal history of urinary calculi; Z92.3 Personal history of irradiation; Z87.11 Personal history of peptic ulcer disease; Z79.899 Other long term (current) drug therapy; Z79.82 Long term (current) use of aspirin

== ENCOUNTER 2018-08-02 16:17 | Inpatient (IN) | payer MEDICARE, MEDICAID ==
[~2018-08-02] VITALS: Ht 162.5 cm; Wt 41.1 kg
--- NOTE | ~2018-08-02 | EKG ---
[place], [place] ELECTROCARDIOGRAM REPORT NAME: ABDI ARZOLA UNIT #: [id number] ROOM: [facility] DOCTOR: CHUY DRAFT REPORT BIRTHDATE: [birth year] [facility] Test Date: 2018-08-07 Test Time: 18:37:59 Pat Name: ABDI ARZOLA Department: Room: [facility] Gender: F Bronc Buster: EKG.GA : 1940 Requested By: MEGHANA MCDANIEL Order Number: [id number] Reading MD: Moisés Martinez MD Measurements Intervals [place] Rate: 101 P: 47 IA: 135 QRS: -16 QRSD: 89 T: 116 QT: 348 QTc: 452 Interpretive Statements Sinus tachycardia Anterior Q waves, consider old anterior MD Nonspecific T abnormalities, lateral leads Compared to ECG 08/06/2018 01:47:03 Q waves now present T-wave abnormality now present Ventricular-paced complex(es) or rhythm no longer present Electronically Signed On 08-08-2018 15:21:03 PST by Moisés Martinez MD CM:EKGRPT:ELECTROCARDIOGRAM REPORT [id number] MEGHANA VERA DRAFT REPORT MEGHANA MCDANIEL
--- NOTE | ~2018-08-02 | WRIGHTHP ---
[place], [place] PATIENT HISTORY AND PHYSICAL EXAM NAME: [id number] UNIT #: [id number] ROOM: [facility] DOCTOR: DELORES BENITEZ MD BIRTHDATE: [birth year] DOS: 08/02/2018 HISTORY OF PRESENT ILLNESS: The patient has presented with C. difficile colitis, urinary tract infection, already on vancomycin p.o., which is taking care of pseudomembranous enterocolitis secondary vancomycin was secondary to Clostridium difficile colitis. The patient, however, got a colonoscopy done today and some colitis was noticed. Her laboratory values were all as expected. Leukocytosis was noticed and she has been given a lavage of vancomycin during the colonoscopy, which is only temporizing in this scenario because she has fast transit time of Clostridium difficile diarrhea and it would not last long. Other adjunctive diagnoses are known with systemic hypertension, coronary artery disease valvular aortic disease, chronic obstructive pulmonary disease, gastroesophageal reflux, renal lithiasis, lung carcinoma, all has been recognized as a part of her problems. PAST SURGICAL HISTORY: Pacemaker, hysterectomy, breast lumpectomy, cholecystectomies, partial gastrectomy, partial lobectomy all has been recognized. SOCIAL HISTORY: Known smoker. FAMILY HISTORY: Noncontributory. ALLERGIES: SULFA AND METAXALONE AND ALSO MUSCLE RELAXANTS. MEDICATIONS: At home has been reviewed. REVIEW OF SYSTEMS: HEENT: Denies double vision, blurred vision. RESPIRATORY: Admits chronic shortness of breath. CARDIOVASCULAR: Denies chest pain. DIGESTIVE SYSTEM: Anorexia, no appetite. Abdominal cramps and some diarrhea. PHYSICAL EXAMINATION: VITAL SIGNS: Entirely exhausted. HEENT: Head is normocephalic and nontraumatic. Mouth and buccal mucosa, no aphthae ulcer, no thrush edentulous. HEENT: Otherwise benign. NECK: Supple, no thyromegaly. CHEST: Symmetric anatomy, decreased air entry in general. HEART: Normal sinus rhythm, no gallop, no murmur. ABDOMEN: Soft. No hepato-organomegaly. Bowel sounds present. No pulsatile mass. EXTREMITIES: No cyanosis, no pedal edema. NEUROLOGIC: Alert, oriented to time, place, person, in general extremely exhausted to the point she is not willing to participate in communications. IMPRESSION: Clostridium difficile colitis, on vancomycin q.i.d. which is adequate for management. IV hydration, probiotic therapy, liquid and beyond diet as tolerated, renal insufficiency. Other adjunctive diagnoses as outlined [place], [place] PATIENT HISTORY AND PHYSICAL EXAM NAME: ABDI ARZOLA UNIT #: [id number] ROOM: [facility] DOCTOR: EMMANUEL GARCIA,DELORES BIRTHDATE: [birth year] above past medical and surgical history, supportive management. DELORES BENITEZ MD CM:HISPHYS:PATIENT HISTORY AND PHYSICAL EXAMINATION 33 02 DELORES BENITEZ MD 08/25/18 0728 interface
--- NOTE | ~2018-08-02 | EKG ---
[place], [place] ELECTROCARDIOGRAM REPORT NAME: ABDI ARZOLA UNIT #: [id number] ROOM: 425 DOCTOR: CHUY DRAFT REPORT BIRTHDATE: [birth year] [facility] Test Date: 2018-08-06 Test Time: 01:47:03 Pat Name: ABDI ARZOLA Department: Room: 425 1 Gender: F Lay Up Operator: Lydia Hurst : 1940 Requested By: ELI ECKERT Order Number: [id number] Reading MD: Moisés Martinez MD Measurements Intervals [place] Rate: 121 P: 46 MT: 134 QRS: -35 QRSD: 96 T: 114 QT: 329 QTc: 467 Interpretive Statements Ventricular-paced complexes No further analysis attempted due to paced rhythm Compared to ECG 08/02/18 Sinus rhythm no longer present Ventricular pacing is now seen Electronically Signed On 08-06-2018 19:29:07 PST by Moisés Martinez MD CM:EKGRPT:ELECTROCARDIOGRAM REPORT [id number] 28 ELI JUAN DRAFT REPORT ELI ECKERT DO
--- NOTE | ~2018-08-02 | PR ---
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 She remains on vancomycin enemas, oral vancomycin, IV Flagyl and IV Tygacil. She has had some nausea and vomiting, continues to have some leukocytosis with 23.6. She vomited last night as well as this morning. She had a CT today, which showed pancolitis. She is to be started on TPN. She has been afebrile. She has had few loose stools today, though it is hard to evaluate considering she is getting every 6 hours vancomycin enemas. She has no rectal tone per nursing and is really not retaining the vancomycin enemas. LABORATORY DATA: WBC is 23.6, platelets 250. BUN 41, creatinine 1.18. When she vomited last night, there was some bloody appearance to it and it was positive for occult blood. PHYSICAL EXAMINATION: VITAL SIGNS: Temperature 98.5, pulse 97, respirations 16, BP 139/77. GENERAL: Frail appearing 78-year-old female. HEAD, EYES, EARS, NOSE AND THROAT: Normocephalic. No thrush. NECK: Supple. LUNGS: Diminished bilaterally. Respirations even and unlabored. HEART: Regular rhythm. No murmur appreciated. ABDOMEN: Soft, positive bowel sounds, nondistended, nontender. EXTREMITIES: Trace edema of all 4 extremities. SKIN: Warm, dry, multiple ecchymotic areas, pale. ASSESSMENT: Recurrent Clostridium difficile colitis. PLAN: At this point, given her issues with nausea and vomiting retaining the oral vancomycin is paramount to improving her infection. We will stop IV Rayna, continue the IV Flagyl, vancomycin orally and per rectum. Surgery is also following. Again, she is to have TPN restarted tonight. I agree with the assessment and plan. I reviewed the labs and imaging, made the necessary changes in the note. OCTOBER SYED PIERCE [place], [place] PROGRESS NOTE NAME: ABDI ARZOLA UNIT #: [id number] ROOM: [facility] DOCTOR: STAN LYNCH,OCTOBER BIRTHDATE: [birth year] Mecca MD Kim CM:MILADIS [id number] OCTOBER STAN LYNCH 08/13/18 0803 interface
--- NOTE | ~2018-08-02 | PR ---
[place], [place] PROGRESS NOTE NAME: ABDI ARZOLA UNIT #: [id number] ROOM: [facility] DOCTOR: SCOTT LING MD BIRTHDATE: [birth year] DOS: 08/07/2018 ADDENDUM I agree with the assessment and plan. I reviewed the labs and imaging, made the necessary changes in the note. Scott Ling MD CM:PNTRANS [id number] SCOTT LING MD 08/13/18 0804 interface
--- NOTE | ~2018-08-02 | PR ---
[place], [place] PROGRESS NOTE NAME: ABDI ARZOLA UNIT #: [id number] ROOM: [facility] DOCTOR: MECCA LING MD BIRTHDATE: [birth year] DOS: 08/07/2018 I agree with the assessment and plan made by the nurse practitioner, Anne Matt. I reviewed the labs and imaging and made the necessary changes in the note. Mecca Ling MD CM:PNTRANS [id number] MECCA LING MD 08/12/18 0850 interface
--- NOTE | ~2018-08-02 | EKG ---
[place], [place] ELECTROCARDIOGRAM REPORT NAME: ABDI ARZOLA UNIT #: [id number] ROOM: [facility] DOCTOR: CHUY DRAFT REPORT BIRTHDATE: [birth year] [facility] Test Date: 2018-08-07 Test Time: 21:05:19 Pat Name: ABDI ARZOLA Department: Room: [facility] Gender: F Marketing Communications Leader: Joce Borges : 1940 Requested By: MEGHANA MCDANIEL Order Number: [id number] Reading MD: Moisés Martinez MD Measurements Intervals [place] Rate: 99 P: 76 [place]: 145 QRS: -3 QRSD: 89 T: 119 QT: 352 QTc: 452 Interpretive Statements Sinus rhythm Nonspecific T abnormalities, lateral leads Compared to earlier ECG this date Anterior Q waves are not now seen No other significant change Electronically Signed On 08-08-2018 15:23:53 PST by Moisés Martinez MD CM:EKGRPT:ELECTROCARDIOGRAM REPORT [id number] MEGHANA NICOLEANY DRAFT REPORT MEGHANA MCDANIEL
--- NOTE | ~2018-08-02 | EKG ---
[place], [place] ELECTROCARDIOGRAM REPORT NAME: ABDI ARZOLA UNIT #: [id number] ROOM: 425 DOCTOR: CHUY DRAFT REPORT BIRTHDATE: [birth year] [facility] Test Date: 2018-08-02 Test Time: 17:17:02 Pat Name: ABDI ARZOLA Department: Room: 425 Gender: F Bat Carrier: MICKI : 1940 Requested By: MICHELLE HOWARD Order Number: [id number] Reading MD: Meaghan Ortiz MD Measurements Intervals [place] Rate: 91 P: 82 IL: 186 QRS: -35 QRSD: 93 T: 94 QT: 365 QTc: 450 Interpretive Statements Sinus rhythm Moderate LAD Compared to ECG 06/29/2018 14:16:16 Myocardial infarct finding no longer present Electronically Signed On 08-06-2018 9:31:59 PST by Meaghan Ortiz MD CM:EKGRPT:ELECTROCARDIOGRAM REPORT [id number] MICHELLE HOWARD EPIPHANY DRAFT REPORT MICHELLE HOWARD
[~2018-08-02 16:17] MED LIST changes: +ANUSOL-HC25 MG R; +MORPHINE SU4 MG/1 M3 IV; +Nystatin 100,000 UNI PO; +ONDANSETRON4 MG/2 M3 IV; +PROTONIX40 M1 IV; +TOPAMAX25 M3 PO
[2018-08-02 16:19] VITALS: BP 83/44
[2018-08-02 16:52] LABS: HEMATOCRIT 32.7 % (37.0-47.0); HEMOGLOBIN 10.1 g/dl (12.0-16.0); MEAN CELL VOLUME 102.2 fl (81.0-99.0); MEAN CORPUSCULAR HGB 31.6 pg (27.0-31.0); MEAN CORPUSCULAR HGB CONC 30.9 g/dl (33.0-37.0); MEAN PLATELET VOLUME 11.3 fl (9.6-12.3); PLATELET COUNT AUTOMATED 221 10*3/uL (130-400); RED CELL DISTRI WIDTH 16.3 % (0-14.5)
[2018-08-02 17:09] LABS: ALBUMIN 2.1 gm/dl (3.1-4.5); ALKALINE PHOSPHATASE 99 U/L (45-117); BUN 31 mg/dl (7-24); CHLORIDE 111 mmol/L (98-107); POTASSIUM 3.8 mmol/L (3.5-5.1); SGOT/AST 14 IU/L (3-35); SGPT/ALT 30 U/L (12-78); SODIUM 142 mmol/L (136-145); TOTAL PROTEIN 5.5 gm/dL (6.4-8.2)
[2018-08-02 17:10] LABS: BURR CELLS FEW; PLATELET SUFFICIENCY NORMAL (NORMAL); TOTAL CELLS COUNTED 100 #CELLS; TOXIC GRANULATION SLIGHT
[2018-08-02 17:11] LABS: TROPONIN I < 0.015 ng/ml (<0.045)
[2018-08-02 17:35] VITALS: BP 106/46
--- NOTE | 2018-08-02 18:03 | NUR ---
PT W/O ACUTE DISTRESS NOTED AWAITING ALL RESULTS FOR ADDITIONAL PLAN OF CARE,SAFETY PRECAUTIONS INTACT AND SON @ BEDSIDE,PT PROVIDED WARM BLANKET AND POSITIONED FOR COMFORT.
[2018-08-02 19:16] VITALS: BP 90/45
[2018-08-02 20:13] LABS: BILIRUBIN NEGATIVE (NEGATIVE); BLOOD NEGATIVE (NEGATIVE); CLARITY SL CLOUDY (CLEAR); COLOR YELLOW (YELLOW); GLUCOSE NEGATIVE (NEGATIVE); KETONE NEGATIVE (NEGATIVE); LEUKO ESTERASE 2+ (NEGATIVE); NITRITE NEGATIVE (NEGATIVE); UROBILINOGEN 0.2 E.U./dl (0.2-1.0)
--- NOTE | 2018-08-02 20:20 | NUR ---
PT WITH 4 BOUTS OF BROWN DIARRHEA NOTED DURING ED STAY.
[2018-08-02 20:27] LABS: BACTERIA 2+; RBC 0-2 rbc/hpf (0-2)
[2018-08-02 21:10] VITALS: BP 78/42
--- NOTE | 2018-08-02 21:10 | NUR ---
Time: 2109 A 78 year old FEMALE admitted to under services of JONELLE GARCIA DO. Pt. arrived via stretcher from ER. Chief complaint: COLITIS, SEPSIS, HX C-DIFF. JO CARLOS
--- NOTE | 2018-08-02 21:37 | NUR ---
DR ECKERT NOTIFIED OF BP 78/42 BEFORE BOLUS NS. NO NEW ORDERS RECEIVED.
[2018-08-02] MEDS ORDERED: AMLODIPINE BESY10 MG PO (21:57)
[2018-08-02] MEDS ORDERED: DRONABINOL2.5 MG PO (21:58)
[2018-08-03] VITALS: BP 93/41
--- NOTE | 2018-08-03 06:28 | NUR ---
DR. BENITEZ NOTIFIED OF CONSULT FOR PATIENT. NEW ORDER FOR SEND STOOL FOR C-DIFF AND CALL DR. BENITEZ WITH RESULTS.
[2018-08-03 06:30] LABS: HEMATOCRIT 29.1 % (37.0-47.0); HEMOGLOBIN 8.8 g/dl (12.0-16.0); MEAN CELL VOLUME 102.8 fl (81.0-99.0); MEAN CORPUSCULAR HGB 31.1 pg (27.0-31.0); MEAN CORPUSCULAR HGB CONC 30.2 g/dl (33.0-37.0); MEAN PLATELET VOLUME 11.6 fl (9.6-12.3); PLATELET COUNT AUTOMATED 177 10*3/uL (130-400); RED BLOOD COUNT 2.83 10*6/uL (4.10-5.10); RED CELL DISTRI WIDTH 16.2 % (0-14.5); WHITE BLOOD COUNT 17.7 10*3/uL (4.8-10.8)
--- NOTE | 2018-08-03 06:31 | NUR ---
DR. LING'S ANSWERING SERVICE NOTIFIED OF CONSULT FOR COLITIS AND HISTORY OF C-DIFF.
[2018-08-03 06:45] LABS: ALBUMIN 1.6 gm/dl (3.1-4.5); CREATININE 1.5 mg/dL (0.55-1.02); PHOSPHOROUS 4.4 mg/dL (2.5-4.9); POTASSIUM 3.5 mmol/L (3.5-5.1); TOTAL PROTEIN 4.4 gm/dL (6.4-8.2)
[2018-08-03 06:47] LABS: FREE T4 1.13 ng/dl (0.76-1.46)
--- NOTE | 2018-08-03 06:49 | NUR ---
DR. ECKERT NOTIFIED OF CRITICAL LOW CALCIUM OF 6.4.
[2018-08-03 06:59] LABS: THYROID STIM HORMONE (HS) 2.23 uIU/ml (0.358-4.75)
[2018-08-03 07:20] LABS: TOTAL CELLS COUNTED 100 #CELLS; VACUOLATION OF NEUTROPHILS SLIGHT
[2018-08-03 07:21] LABS: BURR CELLS FEW; PLATELET SUFFICIENCY NORMAL (NORMAL); POLYCHROMASIA SLIGHT
[2018-08-03 08:00] VITALS: BP 94/64
--- NOTE | 2018-08-03 09:00 | NUR ---
Triple Valve Mechanic in to talk to patient. Patient states lives at home with son. There are few steps in the home. Physician: markus okeefe Pharmacy: [facility] services: [facility] Patient's level of ADLs: MINIMAL ASSIST Patient has working utilities: all working DME: walker, cane, wheelchair Follow-up physician's appointment after d/c: will be made by hospitalist nurse director upon discharge Does patient want to access PORTAL?: no Discharge plan discussed with patient, patient states she lives at home with son, she was recently discharged from [facility] and currently has [facility]. patient states that she feels weak and isn't able to get around home very well. discussed with her a short term fdc for rehab prior to ging back home and patient was agreeable, patient stated that she would like to go to [facility] but knew that they were always full. patient stated that she did not want to go to [facility] and knew very little about [facility], patient asked that we talk to her son regarding SNF placement. corporate meeting planner will contact patient's son regarding choice of facilities. JIHAN DC
--- NOTE | 2018-08-03 10:25 | NUR ---
Spoke with Dr. Hackett regarding patients low blood pressures and blood pressure medications. Per physician. hold Norvasc and will review other medications.
--- NOTE | 2018-08-03 11:00 | NUR ---
Zofran given per patient request for N/V. Morning meds scanned but not given due to vomitting. Dr. Calles at bedside and is aware of patients current condition.
--- NOTE | 2018-08-03 11:11 | NUR ---
Per Karthik, patients son she hasn't had anything to eat since last Thursday. Thursday she had "a little bit off and on." He is on his way to visit.
--- NOTE | 2018-08-03 11:15 | NUR ---
Zofran not effective. See new orders.
--- NOTE | 2018-08-03 11:20 | NUR ---
Phenergan given for c/o N/V. Will monitor.
--- NOTE | 2018-08-03 11:45 | NUR ---
PHYSICAL THERAPY Nursing screen received. PT orders also received. Thank you. Danita Fleming,PT
--- NOTE | 2018-08-03 11:48 | NUR ---
ABDI ARZOLA [id number] Please refer to the physician's history and physical for past medical history, comorbid conditions, and allergies. Diagnosis: COLITIS SEPSIS HISTORY OF CLOSTRIDIUM DIFFICILE Jac Score: 11,HIGH RISK WOUND DESCRIPTIONS: PATIENT'S BILATERAL HEELS RED AND BLANCHABLE. RIGHT AND LEFT HEEL REDNESS MEASURING 4.0cm X 4.0cm X <0.1cm. PATIENT DENIED PAIN AT TIME OF ASSESSMENT TO THESE AREAS. PATIENT'S BUTTOCKS AND COCCYX RED AND BLANCHABLE AREA MEASURING 12.3cm X 10.5cm X <0.1cm. PATIENT DENIED PAIN AT TIME OF ASSESSMENT TO THIS AREA. Surface the patient is resting on: Isoflex SKIN PREVENTION RECOMMENDATION: 1. Pressure redistribution support surface as appropriate 2. Elevate heels 3. Remove boots/TEDS every shift and reapply 4. Head of bed 30 degrees as tolerated 5. Assess nutrition and hydration 6. Manage moisture 7. Avoid the use of containment devices while in bed 8. Use absorptive products on surfaces limit layers of linens on bed 9. Turn and reposition every 1-2 hours in bed and every 1 hour in chair as tolerated 10. Weight shifts every 15 minutes while up in chair 11. Offloading with pillows or device to keep heels elevated off bed 12. Monitor skin at least every shift 13. Inspect under medical devices twice a day WOUND TREATMENT RECOMMENDATIONS: HEEL RAISER PRO BOOTS WHEN IN BED. CHAIR CUSION WHEN OUT OF BED. APPLY HYDRAGUARD TO COCCYX AND BUTTOCKS DAILY AND PRN SOILING FOR PROTECTION.
[2018-08-03 12:00] VITALS: BP 113/48
--- NOTE | 2018-08-03 12:10 | NUR ---
Phenergan not effective. Patient still c/o N/V and refusing all medications. Will continue to monitor.
--- NOTE | 2018-08-03 12:16 | NUR ---
Called Dr. Calles to notify her of (+) c-diff result. Physician to notify Dr. Cabrales of results.
--- NOTE | 2018-08-03 12:23 | NUR ---
PHYSICAL THERAPY PAtient with doctors at this time. Danita Fleming,PT
--- NOTE | 2018-08-03 12:24 | NUR ---
Patient not available for Occupational Therapy as she is being seen by physicians. Daiana Kyle OTR/l
--- NOTE | 2018-08-03 12:41 | NUR ---
Contacted patients son nickie for a decision on which facility he would like his mother to go to. He stated [facility] first. I explained again she is unable to go to [facility] because she requires too much care. She cannot go to [facility] because she is in isolation and they do not have a private room to accomodate her. Other choices are [facility] or [facility] for [facility] or [facility] or [place]. Nickie stated he will go visit [facility] this evening and then let me know.
--- NOTE | 2018-08-03 13:45 | NUR ---
Occupational Therapy evaluation completed on 4 with full eval to follow. Precautions include fall risk, acute debility,poor activity tolerance. Patient is high complexity level 74956 via chart review, testing and evaluation. Recommend OT per POC and SNf to enable max ability to function. Thank you for this referral. Daiana Kyle OTR/l
--- NOTE | 2018-08-03 13:45 | NUR ---
PHYSICAL THERAPY Patient evaluated on 4, full evaluation to follow. Continue with PT as per plan of care with fall, max (A) x 2, C diff, severe acute debility and alarm precautions. May require LTAC return versus SNF. PAtient is high complexity via chart review, tests and evaluation: [id number]. Thank you for this referral. Danita Fleming,PT
--- NOTE | 2018-08-03 14:45 | NUR ---
Patient asleep with respirations >12.
--- NOTE | 2018-08-03 14:50 | NUR ---
Dr. Hackett notified of wound care recommendations.
[2018-08-03 16:00] VITALS: BP 100/50
--- NOTE | 2018-08-03 16:13 | NUR ---
PT SON RICO CALLED IN AND STATES HE VISITED [facility] TODAY AND TALKED TO HIS NEIGHBOR WHO'S MOTHER IS THERE AND IS OK TO HAVE MOTHER GO THERE BUT IT IS ULTIMATELY HER CHOICE BECAUSE SHE IS IN HER RIGHT MIND. STATES HE WILL TALK WITH MOTHER TOMORROW.
--- NOTE | 2018-08-03 16:15 | NUR ---
Spoke with Dr. Hackett and Dr. Coy moore patients increased heart rate and her inability to hold anything down due to nausea and vomitting. We also spoke about calcium level. See new orders.
--- NOTE | 2018-08-03 16:25 | NUR ---
Phenergan given for continued c/o nausea. Will monitor.
--- NOTE | 2018-08-03 16:29 | NUR ---
Spoke with Dr. Bowen regarding consult for chronic c-diff. Labs reviewed and patients current status discussed. No new orders, physician to follow up at patients bedside.
--- NOTE | 2018-08-03 16:45 | NUR ---
Vancomycin enema given. Patient skin was treated and she is placed on a Q2turn schedule and monitor soiled briefs. Patient had unmeasurable amount of urine.
[2018-08-03 20:00] VITALS: BP 87/45
[2018-08-04] VITALS (8 sets, daily range): BP systolic 87–120; BP diastolic 38–68
[2018-08-04 05:59] LABS: HEMATOCRIT 33.1 % (37.0-47.0); HEMOGLOBIN 9.8 g/dl (12.0-16.0); MEAN CELL VOLUME 102.8 fl (81.0-99.0); MEAN CORPUSCULAR HGB 30.4 pg (27.0-31.0); MEAN CORPUSCULAR HGB CONC 29.6 g/dl (33.0-37.0); MEAN PLATELET VOLUME 11.7 fl (9.6-12.3); NUCLEATED RED BLOOD CELL 0.2 % (0.0-0.0); PLATELET COUNT AUTOMATED 217 10*3/uL (130-400); RED BLOOD COUNT 3.22 10*6/uL (4.10-5.10); RED CELL DISTRI WIDTH 16.6 % (0-14.5); WHITE BLOOD COUNT 23.1 10*3/uL (4.8-10.8)
[2018-08-04 06:18] LABS: ALBUMIN 1.6 gm/dl (3.1-4.5); CREATININE 1.67 mg/dL (0.55-1.02); POTASSIUM 3.4 mmol/L (3.5-5.1); TOTAL PROTEIN 4.6 gm/dL (6.4-8.2)
[2018-08-04 06:25] LABS: FREE T4 0.79 ng/dl (0.76-1.46); THYROID STIM HORMONE (HS) 1.31 uIU/ml (0.358-4.75)
--- NOTE | 2018-08-04 06:39 | NUR ---
DR. ECKERT NOTIFIED OF CRITICAL CALCIUM OF 6.1.
[2018-08-04 07:12] LABS: BASOPHILS 1 % (0-1); PLATELET SUFFICIENCY NORMAL (NORMAL); TOTAL CELLS COUNTED 100 #CELLS
[2018-08-04 07:13] LABS: BURR CELLS MODERATE; DOHLE BODIES MODERATE; TOXIC GRANULATION MODERATE
--- NOTE | 2018-08-04 08:00 | NUR ---
PT C/O NOT BEING ABLE TO VOID FOR DAYS AND WE AREN'T DOING ANYTHING ABOUT IT. I DID HAVE THE PATIENT ATTEMPT TO VOID IN WHICH SHE DID VOID 200CC OF DARK DARIANA URINE. I THEN BLADDER SCANNED THE PATIENT AND SHE HAD A RESIDUAL OF 151CC. STUDENT IN ROOM AND AWARE.
--- NOTE | 2018-08-04 09:00 | NUR ---
case management visits with patient, educated patient that her son visited [facility] facility and stated that it was ok with him for patient to go there, but that she had the final say of which facility she would go to. patient stated that she was agreeable to going to [facility], estate planner will make the referral to [facility], patient will need a three night qualifing stay prior to going to [facility]
--- NOTE | 2018-08-04 09:30 | NUR ---
Patient agreeable to snf placement at [facility]; Contacted facility and faxed referral; notified facility patient is in isolation for positive C-diff. Waiting on review/acceptance.
--- NOTE | 2018-08-04 09:48 | NUR ---
PHYSICAL THERAPY Patient presented to therapy in supine with head of bed elevated and no spO2 and PULSE OX at 98% at room air and pulse at 100. Patient complains of nausea and joint pain from her gout. Patient was identified by name and . Patient performed supine bilateral LE ther ex x 15 reps each in all planes of movement for strengthening the LEs in order to improve patient's functional mobility. Patient declined attempting to sit or stand due to gout pain and nausea. Patient very emotional and crying because she says she is so sick and feels awful. Patient tolerated ther ex with increased joint pain and fatigue requiring frequent rest breaks. Patient was left in supine position with head of bed elevated, call light within reach, and bed alarm activated. Patient was left with IBAN WILLIS WHO WAS ASSESSING PATIENT. Patient was 1:1 with this ENGLISH TEACHER for 15 minutes total. XIOMARA BLAKELY ENGLISH TEACHER
--- NOTE | 2018-08-04 10:16 | NUR ---
SPOKE TO SON RICO AND MADE HIM AWARE OF COLONOSCOPY
--- NOTE | 2018-08-04 10:37 | NUR ---
PT LEFT FLOOR FOR SURGERY AT THIS TIME
--- NOTE | 2018-08-04 12:59 | NUR ---
Pt not seen for OT this date due to OR procedure. Will attempt to see pt for OT on 08/05/18. Continue with POC.
--- NOTE | 2018-08-04 14:00 | NUR ---
RETURNED FROM SURGERY.
--- NOTE | 2018-08-04 14:16 | NUR ---
PT DRYHEAVING. GIVEN ZOFRAN AT THIS TIME. WILL CONT TO MONITOR. CALL LIGHT IN REACH.
--- NOTE | 2018-08-04 14:39 | NUR ---
Patient accepted to [facility], requires a 3 night stay, patient can go tomorrow 08/05/18 if medically stable for discharge.
--- NOTE | 2018-08-04 15:16 | NUR ---
ZOFRAN EFF. RESTING QUIETLY AT THIS TIME. WILL CONT TO MONITOR.
--- NOTE | 2018-08-04 15:27 | NUR ---
PT CURRENTLY SLEEPING. NO SIGNS OF DISTRESS NOTED.
--- NOTE | 2018-08-04 18:08 | NUR ---
C/O ARM/HAND PAIN OF 5/10. TYLENOL GIVEN AT THIS TIME. WILL CONT TO MONITOR. CALL LIGHT IN REACH.
--- NOTE | 2018-08-04 19:00 | NUR ---
RESTING QUIETLY AT THIS TIME. WILL CONT TO MONITOR. CALL LIGHT IN REACH.
[2018-08-05] VITALS: BP 116/52
[2018-08-05 07:32] LABS: HEMATOCRIT 30.4 % (37.0-47.0); HEMOGLOBIN 9.2 g/dl (12.0-16.0); MEAN CELL VOLUME 102.7 fl (81.0-99.0); MEAN CORPUSCULAR HGB 31.1 pg (27.0-31.0); MEAN CORPUSCULAR HGB CONC 30.3 g/dl (33.0-37.0); MEAN PLATELET VOLUME 11.4 fl (9.6-12.3); NUCLEATED RED BLOOD CELL 0.1 10*3/uL (0.0-0.0); NUCLEATED RED BLOOD CELL 0.4 % (0.0-0.0); PLATELET COUNT AUTOMATED 199 10*3/uL (130-400); RED BLOOD COUNT 2.96 10*6/uL (4.10-5.10); RED CELL DISTRI WIDTH 17.3 % (0-14.5); WHITE BLOOD COUNT 22.3 10*3/uL (4.8-10.8)
[2018-08-05 07:55] LABS: ALBUMIN 1.6 gm/dl (3.1-4.5); CREATININE 1.44 mg/dL (0.55-1.02); TOTAL PROTEIN 4.4 gm/dL (6.4-8.2)
--- NOTE | 2018-08-05 07:57 | NUR ---
PT TREATMENT NOTE PATIENT SOUND ASLEEP UPON DECORATIVE ENGRAVER APPRENTICE ARRIVAL INTO ROOM, WILL ATTEMPT TO SEE LATER. SCOTTIE PASTRANA PTA
[2018-08-05 08:00] VITALS: BP 130/64
[2018-08-05 08:07] LABS: PLATELET SUFFICIENCY NORMAL (NORMAL); TOTAL CELLS COUNTED 100 #CELLS
[2018-08-05 08:08] LABS: BURR CELLS MODERATE; POLYCHROMASIA SLIGHT; TOXIC GRANULATION SLIGHT
[2018-08-05 08:09] LABS: DOHLE BODIES MODERATE
--- NOTE | 2018-08-05 08:40 | NUR ---
Patient ok to go to [facility] when medically stable for discharge.
--- NOTE | 2018-08-05 09:00 | NUR ---
case management visits with patient, patient will be going to [facility] for a short term prison stay prior to going back home, case management will follow
--- NOTE | 2018-08-05 09:06 | NUR ---
DR ARIZA AWARE OF CALCIUM 6.1.
--- NOTE | 2018-08-05 09:58 | NUR ---
PATIENT REQUESTING MEDICATION FOR NAUSEA. PHENERGAN ADMINISTERED PRESCRIBED. WILL MONITOR FOR EFFECTIVENESS.
--- NOTE | 2018-08-05 10:28 | NUR ---
PATIENT STATES THAT PHENERGAN WAS A LITTLE EFFECTIVE FOR NAUSEA. WILL CONTINUE TO MONITOR.
[2018-08-05 10:43] LABS: INTERNATIONAL NORM RATIO 1.2 (2.0-3.5)
[2018-08-05 12:00] VITALS: BP 126/59
--- NOTE | 2018-08-05 12:29 | NUR ---
Pt was not seen for OT this am due to nausea. Son reported "she is knocked out from nausea medicine". Will attempt OT another time & date. Continue with POC. Sophia RODRIGUEZ/Moon
--- NOTE | 2018-08-05 13:09 | NUR ---
OT NOTE Attempted to see pt this P.M. for OT session and upon arrival pt was supine in bed asleep. Pt did not arouse to verbal stimuli. Will check back at a later time/date. RONI Mishra/Moon
--- NOTE | 2018-08-05 13:56 | NUR ---
PATIENT REQUESTING MEDICATION FOR NAUSEA. ZOFRAN ADMINISTERED PRESCRIBED. WILL MONITOR FOR EFFECTIVENESS.
--- NOTE | 2018-08-05 14:56 | NUR ---
PATIENT STATES THAT NAUSEA IS NOT ANY BETTER AFTER ADMINISTRATION OF ZOFRAN. WILL MONITOR AND ENCOURAGE SIPS OF WATER.
[2018-08-05 16:00] VITALS: BP 109/48
--- NOTE | 2018-08-05 16:52 | NUR ---
PATIENT REQUESTING MEDICATION FOR NAUSEA. 12.5 MG PHENERGAN ADMINISTERED PRESCRIBED. WILL MONITOR FOR EFFECTIVENESS.
--- NOTE | 2018-08-05 17:22 | NUR ---
PATIENT STATES THAT PHENERGAN WAS ALITTLE EFFECTIVE FOR HER NAUSEA. WILL CONTINUE TO MONITOR.
[2018-08-05 20:03] VITALS: BP 130/55
--- NOTE | 2018-08-05 20:51 | NUR ---
PATIENT REQUESTING MEDICATION FOR NAUSEA. ZOFRAN ADMINISTERED PRESCRIBED. WILL MONITOR FOR EFFECTIVENESS.
--- NOTE | 2018-08-05 21:04 | NUR ---
DR ECKERT CALLED AND MADE AWARE OF A SOFT LUMP FOUND ON PAINTS LUQ ABOVE THE BELLY BUTTON. THIS WAS NOT NOTICED EARLIER IS MY SHIFT. DOES NOT CAUSE PAIN WHEN TOUCHED. WILL MONITOR.
--- NOTE | 2018-08-05 21:50 | NUR ---
PATIENT STATES THAT NAUSEA IS A LITTLE BETTER AFTER ADMINISTRATION OF ZOFRAN. WILL MONITOR.
--- NOTE | 2018-08-05 23:30 | NUR ---
TOOK OVER CARE OF PT AT THIS TIME. PT RESTING IN BED, SLEEPING. NO S/S OF DISTRESS. IV FLUIDS INFUSING. ALL SAFETY MEASURES IN PLACE. CALL LIGHT IN REACH.
[2018-08-06] VITALS: BP 128/57
--- NOTE | 2018-08-06 00:45 | NUR ---
PT C/O RESTLESSNESS AND NAUSEA. RESTORIL AND PHENERGAN GIVEN AT THIS TIME. WILL MONITOR FOR EFFECTIVENESS. CALL LIGHT IN REACH.
--- NOTE | 2018-08-06 01:28 | NUR ---
NOTIFIED DR ECKERT THAT PT HR IS STAYING IN 120S. EKG TO BE ORDERED, WILL CONTINUE TO MONITOR PT. PT RESTING IN BED WITH NO S/S OF DISTRESS. RESPIRATIONS EASY AND UNLABORED. CALL LIGHT IN REACH.
--- NOTE | 2018-08-06 01:45 | NUR ---
RESTORIL AND PHENERGAN EFFECTIVE. PT RESTING IN BED, RESPIRATIONS EASY AND UNLABORED. CALL LIGHT IN REACH.
[2018-08-06 07:02] LABS: CREATININE 1.22 mg/dL (0.55-1.02); POTASSIUM 3.3 mmol/L (3.5-5.1)
--- NOTE | 2018-08-06 07:40 | NUR ---
PHYSICIAN NOTIFIED FOR CRITICAL LABS OF CO2 OF 8 AND CALCIUM OF 6.8.
[2018-08-06 08:00] VITALS: BP 130/54
[2018-08-06 08:10] LABS: MEAN CELL VOLUME 102.8 fl (81.0-99.0); MEAN CORPUSCULAR HGB 31.3 pg (27.0-31.0); MEAN CORPUSCULAR HGB CONC 30.5 g/dl (33.0-37.0); MEAN PLATELET VOLUME 11.9 fl (9.6-12.3); NUCLEATED RED BLOOD CELL 0.1 10*3/uL (0.0-0.0); NUCLEATED RED BLOOD CELL 0.4 % (0.0-0.0); PLATELET COUNT AUTOMATED 255 10*3/uL (130-400); RED BLOOD COUNT 3.61 10*6/uL (4.10-5.10); RED CELL DISTRI WIDTH 17.8 % (0-14.5); WHITE BLOOD COUNT 27.9 10*3/uL (4.8-10.8)
[2018-08-06 08:16] LABS: HEMATOCRIT 37.1 % (37.0-47.0); HEMOGLOBIN 11.3 g/dl (12.0-16.0)
[2018-08-06 08:38] LABS: TOTAL CELLS COUNTED 100 #CELLS
[2018-08-06 08:39] LABS: BURR CELLS MODERATE; PLATELET SUFFICIENCY NORMAL (NORMAL); POLYCHROMASIA SLIGHT; TOXIC GRANULATION SLIGHT
--- NOTE | 2018-08-06 08:45 | NUR ---
Patient udated clincals faxed to [facility], patient is accepted, 3 night stay complete, hospital exemption complete, ok to go when medically stable for discharge.
--- NOTE | 2018-08-06 08:49 | NUR ---
OT NOTE Attempted to see pt this A.M. for OT session and upon arrival pt was asleep and would not arouse to verbal stimuli. Will check back at a later time/date. RONI Mishra/Moon
--- NOTE | 2018-08-06 09:02 | NUR ---
PHYSICAL THERAPY Patient was sleeping at this time. will chaeck back later. sarah mena water taxi captain
[2018-08-06 12:00] VITALS: BP 124/66
--- NOTE | 2018-08-06 13:29 | NUR ---
OT NOTE Pt was seen this P.M. 1:1 for 19 minute OT session. Upon arrival pt was supine in bed, pt identified by name and and had reports of generalized weakness and fatigue. Pt presented to therapy with continous 2l-O2 via NC which she remained on throughout entire session. Attempted to complete supine to sit transfer and upon first attempt pt became very light headed and nauseated, requiring her to lay back down. Second attempt made and Pt transferred supine to sit EOB with maxA x 2. Upon inital rise pt had reports of nausea again. Educated pt on breathing and relaxation techniques and after aprox 18 seconds pt stated she felt better. Pt tolerated sitting EOB for aprox 3-4 minutes before requesting to lay back down due to fatigue. pt transferred sit to supine with maxA X 2 where she was left with call light in hand, tray table in place, son in the room, and bed alarm activated for safety. Continue with rec D/C plan to SNF. RONI Mishra/Moon
--- NOTE | 2018-08-06 13:33 | NUR ---
PHYSICAL THERAPY Patient presented to therapy in supine with head of bed nearly flat and patient on 2 liters of spO2 via nasal canula. Patient agrees to therapy session. Patient was identified by name and . Patient performed supine to sitting at EOB transfer with MAX A X 2. Patient sat at EOB for 4 minutes with CGA X 1 to MIN A X 1 for correction of posture from leaning to the R side. Patient performed was transferred back to supine with MAX A X 2 due to nausea and not feeling well. Patient was left in supine with head of bed elevated, call light within reach, and bed alarm activated. Patient was nauseous during entire treatment time and patient's head of bed was elevated, due to her nausea, and she was given dempsey in case she vomited, which she didn't do. Patient was 1:1 with this TRIPE WASHER for 20 minutes total. XIOMARA BLAKELY TRIPE WASHER
[2018-08-06 16:00] VITALS: BP 125/58
--- NOTE | 2018-08-06 16:35 | NUR ---
Recommend follow up for wound care in outpatient setting patient being discharge to another facility at this time.
--- NOTE | 2018-08-06 17:36 | NUR ---
PATIENT MEDICATED WITH PHENERGAN VIA INFUSION PUMP PER DRS ORDERS FOR COMPLAINTS OF NAUSEA AND VOMITING. RN WILL CONTINUE TO MONITO
[2018-08-06 20:00] VITALS: BP 139/60
--- NOTE | 2018-08-06 22:30 | NUR ---
PATIENT ATTENDANT REPORTS TO NURSE THAT PT BILATERAL UPPER EXTREMITIES ARE SWOLLEN AND "SEEPING" CLEAR FLUIDS. BOTTOM SHEET TO BEDDING IS SATURATED IN CLEAR FLUIDS. PT ASSESSED WITH NO RALES HEARD THROUGHOUT LUNGS. FAINT WHEEZE HEARD UPON AUSCULTATION. PHYSICIAN NOTIFIED AND NEW ORDERS RECEIVED TO HOLD 0.9NS FLUIDS FOR THE SHIFT. RESPIRATIONS EASY AND UNLABORED AT THIS TIME. WILL CONTINUE TO MONITOR. CALL LIGHT IN REACH.
[2018-08-07] VITALS: BP 146/64
--- NOTE | 2018-08-07 03:00 | NUR ---
PATIENT ATTENDANT REPORTS TO THIS NURSE THAT PT IS VOMITING AND THAT EMESIS IS DARK BLACK. DR. BOYD NOTIFIED AND NEW ORDERS RECEIVED TO OBTAIN SAMPLE FOR HEMOCCULT OF GASTRIC SECRETIONS. SAMPLE SENT TO LAB AT THIS TIME. WILL WAIT FOR RESULTS AND NOTIFY
--- NOTE | 2018-08-07 03:48 | NUR ---
PT C/O NAUSEA AND VOMITING. PHENERGAN GIVEN AT THIS TIME. WILL MONITOR. CALL LIGHT IN REACH.
[2018-08-07 04:00] VITALS: BP 144/68
--- NOTE | 2018-08-07 04:46 | NUR ---
PT STATES THAT PHENERGAN IS EFFECTIVE AND THAT SHE DOES NOT FEEL NAUSEOUS AT THIS TIME.
--- NOTE | 2018-08-07 04:46 | NUR ---
SPOKE WITH DR ECKERT REGARDING POSITIVE HEMOCCULT FOR GASTRIC SECRETIONS. PHYSICIAN GIVES ORDERS TO CALL DR BENITEZ AT 0700 TO NOTIFY HIM OF RESULTS. WILL CALL PHYSICIAN AT THAT TIME.
[2018-08-07 06:26] LABS: CREATININE 1.18 mg/dL (0.55-1.02); POTASSIUM 2.8 mmol/L (3.5-5.1)
--- NOTE | 2018-08-07 06:54 | NUR ---
DR ECKERT NOTIFIED OF CRITICAL CHLORIDE LEVEL OF 128 AND OF NEW SKIN TEAR TO PT LEFT UPPER EXTREMITY. STANDARD SKIN TEAR ORDERS APPLIED. PT AWARE.
[2018-08-07 07:01] LABS: HEMATOCRIT 34.5 % (37.0-47.0); HEMOGLOBIN 10.4 g/dl (12.0-16.0); MEAN CELL VOLUME 100.3 fl (81.0-99.0); MEAN CORPUSCULAR HGB 30.2 pg (27.0-31.0); MEAN CORPUSCULAR HGB CONC 30.1 g/dl (33.0-37.0); MEAN PLATELET VOLUME 11.7 fl (9.6-12.3); NUCLEATED RED BLOOD CELL 0.1 10*3/uL (0.0-0.0); NUCLEATED RED BLOOD CELL 0.3 % (0.0-0.0); PLATELET COUNT AUTOMATED 250 10*3/uL (130-400); RED BLOOD COUNT 3.44 10*6/uL (4.10-5.10); RED CELL DISTRI WIDTH 17.9 % (0-14.5); WHITE BLOOD COUNT 23.6 10*3/uL (4.8-10.8)
[2018-08-07 07:40] LABS: BURR CELLS MODERATE; PLATELET SUFFICIENCY NORMAL (NORMAL); TOTAL CELLS COUNTED 100 #CELLS; TOXIC GRANULATION MODERATE
--- NOTE | 2018-08-07 07:53 | NUR ---
DR BENITEZ NOTIFIED OF POSITIVE HEMOCCULT OF GASTRIC SECRETIONS. NEW ORDERS RECEIVED FOR KUB THIS MORNING AND TO CALL HIM BACK WITH RESULTS. APPROPRIATE ORDERS PLACED. AM NURSE NOTIFIED.
--- NOTE | 2018-08-07 10:18 | NUR ---
PT VOMITING, DARK BROWN/BLOOD/WHITE PHLEM. PHENERGAN GIVEN. VOMITED AFTER TAKING PO VANC, REFUSES OTHER AM MEDICATIONS AT THIS TIME
--- NOTE | 2018-08-07 10:36 | NUR ---
NOTIFIED DR. KUMAR OFFICE/ANSWERING SERVICE OF NEW CONSULT ROUTINE NEW CONSULT
--- NOTE | 2018-08-07 10:43 | NUR ---
SPOKE TO DR. MA, ORDERS PLACED
[2018-08-07 12:00] VITALS: BP 139/77
--- NOTE | 2018-08-07 12:00 | NUR ---
PHYSICAL THERAPY Attempted to see pt this date-- pt states she is very nauseated and not willing to participate. Amy De León, SOCIAL SCIENCES LECTURER
[2018-08-07 16:00] VITALS: BP 121/66
--- NOTE | 2018-08-07 17:51 | NUR ---
SPOKE TO DR. MCDANIEL, AWARE UNABLE TO GET PERIPHERIAL IV ACCESS AT THIS TIME. SHE WILL PASS ALONG TO MOTORBOAT MECHANIC DR. FERNANDEZ TO ATTEMPT ACCESS. IN THE MEAN TIME IF SOMEONE FROM ICU IS ABLE TO ATTEMPT IV ACCESS. NOTIFIED OF BLOOD IN STOOL, DR. MCDANIEL WOULD LIKE CONSULTS NOTIFIED.
--- NOTE | 2018-08-07 18:00 | NUR ---
DR. VENEGAS NOTIFIED OF BLOODY STOOL, ORDER TO GIVE IV PROTONIX NOW AND TO CALL HIM IF PATIENT CONTINUES TO VOMIT BLOOD OR EXCESSIVE BLOODY STOOLS
--- NOTE | 2018-08-07 18:04 | NUR ---
NOTIFIED OF BLOODY STOOL, HE STATED THAT HE THOUGHT THAT DR. VENEGAS WAS MANAGING THIS PATIENTS CASE. HE WANTS CALLED WITH KUB RESULTS.
--- NOTE | 2018-08-07 18:28 | NUR ---
NOTIFIED DR. MCDANIEL THAT PATIENTS STATES SHE IS HAVING CHEST PAIN AND ABDOMINAL PAIN. ORDERED TROPONIN X3 AND ECG X3. REQUESTED FOR RESIDENT TO COME SEE PATIENT AND DR. MCDANIEL STATED THAT SHE IS NOT IN HOUSE AT THE [facility], DR. FERNANDEZ WILL BE ON THIS EVENING AND CAN SEE THE PATIENT.
--- NOTE | 2018-08-07 18:29 | NUR ---
NOTIFIED DR BENITEZ THAT PATIENT'S KUB IS BACK. THAT PATIENT NOW HAS BLOODY DIARRHEA. HE ADVISED TO NOTIFY ATTENDING. HE BELIEVES PATIENT HAS A CANCEROUS STATE.
--- NOTE | 2018-08-07 18:56 | NUR ---
[facility] RN PLACED #20 RIGHT ARM
[2018-08-07 20:00] VITALS: BP 143/62
--- NOTE | 2018-08-07 20:00 | NUR ---
PT HAD ANOTHER DARK STOOL. PT HAS IV FLUIDS RUNNING INTO RIGHT AC IV. RUNNING TPN AND POTASSIUM INTO RIGHT SC PORT. PT STATES CHEST PAIN IS BETTER AT THIS TIME. REQUESTED A DRINK OF WATER, WHEN GIVEN DRINK OF WATER YELLED OUT IN PAIN, STATING SEVERE ABDOMINAL PAIN.
[2018-08-07 20:07] LABS: MEAN CELL VOLUME 100.8 fl (81.0-99.0); MEAN CORPUSCULAR HGB CONC 29.7 g/dl (33.0-37.0); MEAN PLATELET VOLUME 11.2 fl (9.6-12.3); NUCLEATED RED BLOOD CELL 0.1 10*3/uL (0.0-0.0); NUCLEATED RED BLOOD CELL 0.6 % (0.0-0.0); PLATELET COUNT AUTOMATED 196 10*3/uL (130-400); RED BLOOD COUNT 2.47 10*6/uL (4.10-5.10); RED CELL DISTRI WIDTH 18.1 % (0-14.5); WHITE BLOOD COUNT 17.1 10*3/uL (4.8-10.8)
[2018-08-07 20:17] LABS: HEMATOCRIT 24.9 % (37.0-47.0); HEMOGLOBIN 7.4 g/dl (12.0-16.0)
[2018-08-07 20:19] LABS: PLATELET SUFFICIENCY NORMAL (NORMAL); POLYCHROMASIA SLIGHT; TOTAL CELLS COUNTED 100 #CELLS
--- NOTE | 2018-08-07 20:19 | NUR ---
BEDSIDE REPORT OBTAINED FROM ZIA RAZA ON PT. TPN WITH LIPIDS INFUSING INTO RIGHT SUBCLAVIAN MEDIPORT. FIRST OF FOUR K-RUNS INFUSING WITH TPN. D5W WITH 20 MEQ K+ INFUSING INTO RAC IV SITE. PT ASKED FOR SIP OF WATER BUT WHEN GIVEN WATER, C/O ABDOMINAL PAIN. PT LYING IN BED AT THIS TIME, HOB ELEVATED. RESPIRATIONS EASY AND UNLABORED ON 2L NC. PT APPEARS ALERT, LETHARGIC BUT AROUSABLE, ANSWERS QUESTIONS APPROPRIATELY. WILL CONTINUE TO MONITOR PT. HEELS ELEVATED, ALL SAFETY MEASURES IN PLACE. CALL LIGHT IN REACH.
[2018-08-07 20:20] LABS: BURR CELLS MODERATE; TOXIC GRANULATION MODERATE
--- NOTE | 2018-08-07 21:42 | NUR ---
PATIENT TRANSFERED TO ICU BED 6 PER DOCTORS ORDERS PATIENT REPORT GIVEN BY ROSEMARY LIZARRAGA TO EVERETTE LIZARRAGA.
[2018-08-07] MEDS ORDERED: LACTINEX 0.2 MG1 TAB PO (23:16)
[2018-08-07] MEDS ORDERED: REMEDY CALAZIME4 GM T (23:16)
[2018-08-07] MEDS ORDERED: Nystatin 100,000 UNI PO (23:21)
[2018-08-07] MEDS ORDERED: VANCOMYCIN250 MG/2.5 PO (23:21)
[2018-08-07] MEDS ORDERED: FLAGYL500 MG IV (23:21)
[2018-08-07 23:32] VITALS: BP 163/68
--- NOTE | 2018-08-07 23:32 | NUR ---
DOCTOR FERNANDEZ INSERTED MULTILUMEN IN PATIENT IN RIGHT IJ. PATIENT TOLERATED WELL XRAY CONFIRMED PLACEMENT. PATIENT ORDERED BLOOD WHICH WAS THEN STARTED PATIENT TOLERATING WELL. SEE VITALS. PATIENT BEING TRANSEFERED TO TO [facility] AWAITING AMBULANCE AT THIS TIME PATIENTS SON AT THE BEDSIDE AND IS INFORMED OF PATIENTS TRANSFER.
--- NOTE | 2018-08-08 01:10 | NUR ---
PATIENT LEAVING VIA AMBULANCE IN STABLE CONDITION
--- NOTE | 2018-08-08 01:25 | NUR ---
PATIENT REPORT CALLED TO ALONSO AT [facility]. PATIENT IS ON THEIR WAY VIA AMBULANCE TO [facility] CURRENTLY.
--- NOTE | 2018-08-09 07:47 | NUR ---
PHYSICAL THERAPY CO-SIGN I approve of the Phyical Therapy notes written above. ALEA MCINTYRE PT
--- NOTE | 2018-08-09 07:55 | NUR ---
OCCUPATIONAL THERAPY CO-SIGN I approve of the Occupational Therapy notes written above. ROSA SNIDER OTR/Moon
== END 2018-08-08 01:10 | disposition short-term general hospital (02) | DRG 871 ==
LOC: ED 16:17 → EDHOLD 19:56 → 4E 19:56 → ICCU 08-07 21:37
PROVIDERS: Family Medicine; Internal Medicine; Nurse Practitioner Family; Student in an Organized Health Care Education/Training Program; ADMIT Internal Medicine
PROC: 3E0H8GC Introduction of Other Therapeutic Substance into Lower GI, Via Natural or Artificial Opening Endoscopic (ICD-10-PCS; principal; 2018-08-04)
PROC: 02HV33Z Insertion of Infusion Device into Superior Vena Cava, Percutaneous Approach (ICD-10-PCS; 2018-08-07)
PROC: 30233N1 Transfusion of Nonautologous Red Blood Cells into Peripheral Vein, Percutaneous Approach (ICD-10-PCS; 2018-08-07)
PROC: B548ZZA Ultrasonography of Superior Vena Cava, Guidance (ICD-10-PCS; 2018-08-07)
DX: A41.9 Sepsis, unspecified organism (principal); N17.0 Acute kidney failure with tubular necrosis; A04.72 Enterocolitis due to Clostridium difficile, not specified as recurrent; E44.0 Moderate protein-calorie malnutrition; I50.32 Chronic diastolic (congestive) heart failure; K55.9 Vascular disorder of intestine, unspecified; I13.0 Hypertensive heart and chronic kidney disease with heart failure and stage 1 through stage 4 chronic kidney disease, or unspecified chronic kidney disease; Z68.1 Body mass index [BMI] 19.9 or less, adult; I25.10 Atherosclerotic heart disease of native coronary artery without angina pectoris; N18.3 Chronic kidney disease, stage 3 (moderate); M10.9 Gout, unspecified; K21.9 Gastro-esophageal reflux disease without esophagitis; R65.20 Severe sepsis without septic shock; E83.51 Hypocalcemia; R73.9 Hyperglycemia, unspecified; N83.202 Unspecified ovarian cyst, left side; K27.9 Peptic ulcer, site unspecified, unspecified as acute or chronic, without hemorrhage or perforation; I35.8 Other nonrheumatic aortic valve disorders; E53.8 Deficiency of other specified B group vitamins; D53.9 Nutritional anemia, unspecified; E03.9 Hypothyroidism, unspecified; L89.151 Pressure ulcer of sacral region, stage 1; L89.621 Pressure ulcer of left heel, stage 1; I73.9 Peripheral vascular disease, unspecified; L89.611 Pressure ulcer of right heel, stage 1; J44.9 Chronic obstructive pulmonary disease, unspecified; F17.210 Nicotine dependence, cigarettes, uncomplicated; Z88.2 Allergy status to sulfonamides; Z88.8 Allergy status to other drugs, medicaments and biological substances; Z86.718 Personal history of other venous thrombosis and embolism; Z85.3 Personal history of malignant neoplasm of breast; Z87.442 Personal history of urinary calculi; Z85.118 Personal history of other malignant neoplasm of bronchus and lung; Z92.3 Personal history of irradiation; Z90.710 Acquired absence of both cervix and uterus; Z90.49 Acquired absence of other specified parts of digestive tract; Z95.0 Presence of cardiac pacemaker; Z80.42 Family history of malignant neoplasm of prostate; Z82.3 Family history of stroke; Z80.49 Family history of malignant neoplasm of other genital organs

== ENCOUNTER 2018-10-13 12:22 | Inpatient (IN) | payer MEDICARE, MEDICAID ==
[~2018-10-13] VITALS: Ht 160 cm; Wt 52.4 kg
--- NOTE | ~2018-10-13 | EKG ---
[place], [place] ELECTROCARDIOGRAM REPORT NAME: ADBI ARZOLA UNIT #: [id number] ROOM: 528 DOCTOR: CHUY DRAFT REPORT BIRTHDATE: [birth year] [facility] Test Date: 2018-10-13 Test Time: 20:28:16 Pat Name: ABDI ARZOLA Department: Room: 528 Gender: F Visiting Teacher: Gabriela Gutierrez : 1940 Requested By: LI MATUTE Order Number: [id number] Reading MD: Josue Dsouza Measurements Intervals [place] Rate: 81 P: 64 NE: 214 QRS: -37 QRSD: 103 T: 75 QT: 397 QTc: 461 Interpretive Statements Sinus rhythm Borderline prolonged NE interval Left axis deviation Anteroseptal infarct, old Compared to ECG 08/07/2018 21:05:19 Left-axis deviation now present Myocardial infarct finding now present T-wave abnormality no longer present Q waves no longer present Electronically Signed On 10-15-2018 11:01:11 PDT by Josue Dsouza CM:EKGRPT:ELECTROCARDIOGRAM REPORT 27 [id number] LI JUAN DRAFT REPORT LI MATUTE DO
--- NOTE | ~2018-10-13 | PROC NOTE ---
[place], [place] PROCEDURE NOTE NAME: ABDI ARZOLA UNIT #: [id number] ROOM: 528 DOCTOR: FABRICIO MARES MD,ELLI BIRTHDATE: [birth year] DOS: 10/15/2018 FIBEROPTIC BRONCHOSCOPY PREOPERATIVE DIAGNOSIS: Nonresolving cough. POSTOPERATIVE DIAGNOSES: Severe thick mucus impaction in the endobronchial tree subsegment with possible consideration of tracheobronchitis. PROCEDURE DESCRIPTION: After informed consent obtained from the patient, the patient brought to the OR and placed in supine position. Conscious sedation was administered by the Anesthesia Department. After achieving proper sedation, airway was introduced into the mouth. Bronchoscope was advanced into airway into laryngeal area. The epiglottis and vocal cords were seen. Vocal cords were moving in symmetrical movement. Bronchoscope was advanced into vocal cord into the tracheal lumen, noted thick mild to moderate mucoid secretion, suctioned out at the junie level. Junie noted sharp. Right middle, right lower, left upper, lingula, and lower lobe bronchi, all examined with moderate amount of mucus impaction noted in the endobronchial tree subsegments bilaterally. All secretions suctioned out clear with normal saline wash. Procedure was well tolerated by the patient without any difficulty. Postoperative findings were discussed with patient's family member in the recovery room. ELLI REGALADO MD CM:PROCNOTE:PROCEDURE NOTE [id number] ELLI MARES MD
--- NOTE | ~2018-10-13 | PR ---
[place], [place] PROGRESS NOTE NAME: ABDI ARZOLA UNIT #: [id number] ROOM: 528 DOCTOR: ELLI ISBELL MD BIRTHDATE: [birth year] DOS: 10/17/2018 PULMONARY PROGRESS NOTE SUBJECTIVE: She has been noted comfortable at this time. Denies any cough, chest congestion. Denies symptoms of fever or chills. Denies symptoms of hemoptysis. OBJECTIVE: VITAL SIGNS: For the patient which were recorded shows the temperature noted as normal. The respiratory rate of 16, heart rate 86, blood pressure 141/56. Pulse oxygen saturation at rest on room air 100% saturation. HEENT: Head was atraumatic. Eyes nonicterus. NECK: Supple. CARDIOVASCULAR: S1, S2 audible. LUNGS: Clear. No wheezing. ABDOMEN: Soft, nontender, bowel sounds present. EXTREMITIES: No acute change. LABORATORY DATA: The cultures of the bronchial washing noted light growth of Gram-negative bacilli as Enterobacter species. IMPRESSION: 1. The patient with the resolution of cough noted asymptomatic at this time. The current isolation Gram-negative infection not be treated because of absence of any symptoms requiring treatment and past history of C. diff colitis as well. Antibiotic use will be minimized. 2. Chronic protein-calorie malnutrition with improvement in oral intake of calories was noted. PLAN OF MANAGEMENT: No change in plan of care. Discharge planning for the patient could be started per primary care physician upon stability. Other medical illnesses could be considered for home discharge. [place], [place] PROGRESS NOTE NAME: ABDI ARZOLA UNIT #: [id number] ROOM: 528 DOCTOR: ELLI ISBELL MD BIRTHDATE: [birth year] ELLI REGALADO MD CM:PNTRANS [id number] ELLI MARES MD 10/29/18 0829 interface
--- NOTE | ~2018-10-13 | PR ---
[place], [place] PROGRESS NOTE NAME: ABDI ARZOLA UNIT #: [id number] ROOM: 528 DOCTOR: FABRICIO MARES MD,ELLI BIRTHDATE: [birth year] DOS: 10/20/2018 SUBJECTIVE: The patient remains comfortable at this time, but still noted with GI symptoms, nausea and vomiting, but they have been decreased as noted with symptoms of acute cough at the present time after bronchoscopy which have all resolved. Denies symptoms of shortness of breath. Denies symptoms of chest pain. The patient has been assessed by GI service and was planned for endoscopy for the assessment of current ongoing GI problems. OBJECTIVE: VITAL SIGNS: For the patient which were recorded shows a normal temperature, respiratory rate 17, heart rate 84, blood pressure 192/91. Pulse oxygen saturation recorded as 100% at rest. HEENT: Examination shows head was atraumatic. Eyes nonicterus. NECK: Supple. CARDIOVASCULAR: S1, S2 audible. LUNGS: Noted clear wheezing or crackles. ABDOMEN: Soft, bowel sounds present. EXTREMITIES: No edema. LABORATORY DATA: CBC: WBC count 11.0, hemoglobin 10, platelet count was normal. BMP of this morning is normal BUN and creatinine and other electrolytes. IMPRESSION: Stable pulmonary status with resolution of cough after bronchoscopy colonization gram-negative infection. No active infection that has been treated. GI symptoms, nausea and vomiting requiring further investigation. PLAN OF MANAGEMENT: No changes in the plan of care at this time. Continue the patient's current therapy, plan of management and treatment. Usual care. ELLI REGALADO MD CM:PNTRANS [phone] ELLI MARES MD 10/20/18 1842 interface
--- NOTE | ~2018-10-13 | PR ---
[place], [place] PROGRESS NOTE NAME: ABDI ARZOLA UNIT #: [id number] ROOM: 528 DOCTOR: ELLI ISBELL MD BIRTHDATE: [birth year] DOS: 10/16/2018 PULMONARY PROGRESS NOTE SUBJECTIVE: The patient has been noted much improvement in the respiratory symptom with resolution of the coughing completely. Denies symptoms of chest pain. Denies symptoms of fever or chills or hemoptysis. The patient stated her appetite was noted to be good and eating good amount of food in the last in 24 hours. OBJECTIVE: VITAL SIGNS: Normal temperature, respiratory rate 18, heart rate 79, blood pressure 120/72, pulse oxygen saturation on 2-liter nasal cannula 97% saturation. HEENT: Examination shows head was atraumatic. Eyes nonicterus. NECK: Supple. CARDIOVASCULAR: S1, S2 audible. LUNGS: Noted without any wheezing today. ABDOMEN: Soft, nontender. Bowel sounds present. EXTREMITIES: Noted without any acute edema. LABORATORY DATA: The culture of the bronchial washing noted light growth of gram-negative bacilli with pending final culture results. The BMP was noted BUN 37 and creatinine was normal. IMPRESSION: 1. Acute tracheobronchitis with cough, which has been noted decreased. 2. With severe weight loss, which has been improving with the decreased appetite. Noted with improvement in appetite. PLAN OF TREATMENT: Follow the calorie count. Continue antibiotic according to the culture results to be used only because of history of previous C. diff colitis and colectomy. Other therapy, plan of management, care plan of treatment. [place], [place] PROGRESS NOTE NAME: ABDI ARZOLA UNIT #: [id number] ROOM: 528 DOCTOR: ELLI ISBELL MD BIRTHDATE: [birth year] ELLI REGALADO MD CM:PNTRANS [phone] ELLI MARES MD 10/17/18 0243 interface
--- NOTE | ~2018-10-13 | PR ---
[place], [place] PROGRESS NOTE NAME: ABDI ARZOLA [facility] #: [id number] UNIT #: [id number] ROOM: 528 DOCTOR: HETAL MEYER MD BIRTHDATE: [birth year] DOS: 10/16/2018 SUBJECTIVE: She was very drowsy and sleepy yesterday, barely able to talk. Today, she is alert, oriented, very lively. She tells me she was hungry yesterday and had a good breakfast today. She does not have any shortness of breath. No palpitations. PHYSICAL EXAMINATION: GENERAL: This is a patient who is very pleasant, alert. She is lively. She is very underweight. NECK: JVP is low. CARDIAC: Auscultation is unremarkable. LUNGS: Breath sounds are fairly decent with very few adventitious sounds in the left side. IMPRESSION: 1. This patient has chronic diastolic heart failure, which is well compensated. 2. Complete heart block was treated with a pacemaker, which is not being used at this time, i.e. she has intrinsic rhythm. 3. Chronic obstructive pulmonary disease exacerbation is being treated. PLAN: No new recommendations. HETAL MEYER MD CM:PNTRANS [phone] HETAL MEYER MD 10/16/18 1720 interface
--- NOTE | ~2018-10-13 | CON ---
[place], [place] REPORT OF CONSULTATION NAME: ABDI ARZOLA UNIT #: [id number] ROOM: 528 DOCTOR: HETAL MEYER MD BIRTHDATE: [birth year] DOS: 10/15/2018 HISTORY OF PRESENT ILLNESS: This is 78-year-old [place] woman with a history of COPD and also complete heart block, for which she had a dual chamber pacemaker implanted. She was admitted to the hospital a couple of days ago because of shortness of breath, worsening lethargy and decreased appetite. She did not have any chest pain, palpitation did not pass out. No chills or shivering. She did not have any swelling of the lower extremities. The patient is not able to give me detailed information and somewhat forgetful. The patient's chart has been reviewed for details. PAST MEDICAL HISTORY: 1. She has significant COPD. 2. Chronic diastolic heart failure that has been fairly well compensated. 3. Complete heart block and had a dual chamber pacemaker implanted many years ago. 4. Coronary artery disease. 5. DVT. 6. Lung cancer. 7. Breast cancer. 8. COPD. 9. She has chronic protein malnutrition. PAST SURGICAL HISTORY: Includes a colon resection and colostomy, lumpectomy, partial hysterectomy, cholecystectomy, partial gastrectomy and lobectomy for lung cancer. SOCIAL HISTORY: She does not smoke now, but had been a chronic smoker for a very long time. No alcohol consumption. HOME MEDICATIONS: Included several bronchodilator medications, amlodipine 10 daily, levothyroxine 100 mcg daily, aspirin 81 daily, diltiazem 30 mg q.i.d., Protonix 40 daily BuSpar and sublingual nitroglycerin p.r.n. PHYSICAL EXAMINATION: GENERAL: This reveals a patient who is somewhat lethargic. Her mouth is dry and had little difficulty talking. She appears to be oriented. She looks a little pale, but is not diaphoretic. There is no thyromegaly or finger clubbing. She is substantially underweight/sarcopenia. VITAL SIGNS: Pulse is 75 and regular, blood pressure 108/50. NECK: JVP is low. No bruit in the neck is present. CARDIOVASCULAR: Cardiac auscultation reveals no obvious murmurs. She had palpable pedal pulses and no edema in lower extremities. RESPIRATORY SYSTEM: Auscultation reveals breath sounds that are diminished moderately bilaterally and she has adventitious sounds in both lungs. ABDOMEN: Bowel sounds are normal. There is no organomegaly. A colostomy bag is present. LABORATORY DATA: Hemoglobin 8.9 g/dL, WBC 7.2, BUN is 41, creatinine 1.14. Sodium of 140, potassium 4.7, sodium was somewhat low on admission. [place], [place] REPORT OF CONSULTATION NAME: ABDI ARZOLA UNIT #: [id number] ROOM: 528 DOCTOR: HETAL MEYER MD BIRTHDATE: [birth year] IMAGING: Chest x-ray showed hyperinflated lungs, pacemaker lead and no acute changes. IMPRESSION: 1. The patient has chronic obstructive pulmonary disease exacerbation. 2. Chronic diastolic heart failure is compensated. There is no evidence of heart failure at this time. 3. Complete heart block and has a pacemaker. Her ECG now shows normal sinus rhythm at 85 beats per minute with no pacemaker activity. RECOMMENDATIONS: Her current medication will be continued. I do not have any specific recommendations for this patient. I think the problems are essential noncardiac. I thank you for this consult. HETAL MEYER MD CM:CONSTR:REPORT OF CONSULTATION 0734 10/15/18 0902 interface
--- NOTE | ~2018-10-13 | PR ---
[place], [place] PROGRESS NOTE NAME: ABDI ARZOLA [facility] #: [id number] UNIT #: [id number] ROOM: 528 DOCTOR: HETAL MEYER MD BIRTHDATE: [birth year] DOS: 10/18/2018 SUBJECTIVE: This patient was very lively yesterday, but today complains of some abdominal pains and is somewhat lethargic. She had no nausea, has not been any chest pain. Breathing is as usual with O2 on. No fever or chills. Her appetite is down as well. PHYSICAL EXAMINATION: GENERAL: Revealed the patient has somewhat subdued attitude, she is quiet. VITAL SIGNS: Temperature is normal at 98.9 degree Fahrenheit. Pulse is 96 regular, blood pressure 161/100, previous blood pressures were much better. NECK: Normal JVP. LUNGS: Breath sounds are severely diminished. No murmurs. EXTREMITIES: No edema in lower extremities. IMPRESSION: This patient has severe chronic obstructive pulmonary disease which is under control. She is complaining of abdominal pain now. She a pacemaker, but she has intrinsic rhythm at this time. Chronic diastolic heart failure is well compensated. No new recommendations. HETAL MEYER MD CM:PNTRANS [id number] HETAL MEYER MD 10/18/18 2324 interface
--- NOTE | ~2018-10-13 | CON ---
[place], [place] REPORT OF CONSULTATION [id number] UNIT #: [id number] ROOM: 528 DOCTOR: ELLI ISBELL MD BIRTHDATE: [birth year] DOS: 10/14/2018 PULMONARY CONSULTATION, EVALUATION AND MANAGEMENT CONSULTATION REQUESTED BY: Hospitalist Services. REASON FOR CONSULTATION: Acute exacerbation of COPD with coughing and other symptoms. HISTORY OF PRESENT ILLNESS: A 78-year-old white female patient, known to me with past history of COPD and other problems, has been admitted to the hospital under hospitalist services. She has been admitted to the hospital, as the patient has been reporting progressive increase in cough, which has been noted severe and nonproductive. Cough has been noted excessively at times with only minimal sputum expectoration at times. The patient has not been noted any symptoms of fever or chills. The symptoms are associated with shortness of breath, which occur at rest and with minimal exertion. She does report symptoms of wheezing as well. The patient denies symptoms of hemoptysis with that. She has been noted gradual weight loss after prolonged hospitalization, as the patient developed C. diff colitis requiring total colectomy in [facility] and colostomy was also performed. She has lost significant weight since then. She has been currently admitted to the hospital with the current symptoms. REVIEW OF SYSTEMS: CONSTITUTIONAL: Fatigue and tiredness noted with decreased appetite and decreased oral intake. EYES: Denies burning, redness, or tenderness. EARS, NOSE, AND THROAT: Denies sore throat, hoarseness, otalgia, postnasal drainage or epistaxis. CARDIOVASCULAR: Denies anginal pain, edema or pain of the lower extremities. GASTROINTESTINAL: The patient was noted with current colostomy. There were no symptoms of nausea or vomiting. GENITOURINARY: Denies dysuria, suprapubic pain, or hematuria. MUSCULOSKELETAL: Denies acute joint pain, redness, or tenderness. SKIN: Denies any lesions or rashes. CENTRAL NERVOUS SYSTEM: The patient denies any symptoms of dizziness, headache, or diplopia, but severe general weakness and fatigue was noted. Remaining systems were reviewed, they were noted all negative. PAST MEDICAL HISTORY: Noted as: 1. COPD. 2. Lung cancer with lobectomy in the past. 3. Major depression. 4. Coronary artery disease with past myocardial infarction. 5. Peptic ulcer disease. 6. Hypothyroidism. 7. Breast cancer with lumpectomy as well on the left side. 8. Hypothyroidism. [place], [place] REPORT OF CONSULTATION NAME: ABDI ARZOLA UNIT #: [id number] ROOM: 528 DOCTOR: FABRICIO MARES MD,ELLI BIRTHDATE: [birth year] 9. C. diff colitis with colectomy. 10. Progressive gradual weight loss and decreased oral intake. PAST SURGICAL HISTORY: 1. Cholecystectomy. 2. Hysterectomy. 3. Left breast lumpectomy for cancer management. 4. Partial resection of lung for lung cancer as well, right upper lobectomy. 5. Partial gastrectomy. 6. Pacemaker insertion. 7. Colostomy. SOCIAL HISTORY: The patient lives at home, . She has been noted tobacco use since teenager, a pack of cigarettes per day, but not smoking cigarettes for the past several months. FAMILY HISTORY: Noted for uterine cancer in mom and prostate cancer in father. MEDICATIONS: Current medications administered on admission are sertraline, aspirin, Norvasc, Lovenox for DVT prophylaxis, Synthroid, Solu-Medrol 40 mg IV b.i.d., Topamax, Cardizem, Pulmicort Respules 0.5 mg b.i.d., DuoNeb q. 6 hours, lactated Ringer's, BuSpar, Marinol, IV Rocephin, and the patient is also receiving IV Zithromax. DRUG ALLERGIES: THE PATIENT WAS NOTED ALLERGIES TO: 1. BACTRIM. 2. METAXALONE. 3. COUMADIN. 4. MUSCLE RELAXANTS. PHYSICAL EXAMINATION: GENERAL: This is a 78-year-old female patient, appears to have lost significant weight since the past known. Current BMI is noted only 13.6, weight is 77 pounds, height of 5 feet 3 inches. VITAL SIGNS: Which were recorded as normal temperature, respiratory rate 16-22, heart rate 113-85, blood pressure 118/81 to 122/52. Pulse oxygen saturation on 2 liters nasal cannula was 100% saturation. HEENT: Head was atraumatic, eyes nonicterus. NECK: Supple. Dry oral mucosa. CARDIOVASCULAR: S1 and S2 audible. LUNGS: The patient was noted moderate decreased breath sounds and expiratory wheezing without any crackles. ABDOMEN: Soft. Bowel sounds present. No tenderness. EXTREMITIES: Loss of muscle mass as well without any edema. MUSCULOSKELETAL: The patient was noted without any acute deformities. CENTRAL NERVOUS SYSTEM: Severe general weakness and fatigue. LABORATORY AND DIAGNOSTIC DATA: CBC of 10/13/2018, WBC count normal, hemoglobin and hematocrit normal, platelet count normal. Normal PT/PTT. Lactic acid 1.6 on 10/13/2018. BMP: BUN 47, creatinine 1.89, glucose 152, sodium 128, [place], [place] REPORT OF CONSULTATION NAME: ABDI ARZOLA UNIT #: [id number] ROOM: 528 DOCTOR: FABRICIO MARES MD,[facility] BIRTHDATE: [birth year] potassium 5.2, CO2 was only 11. Anion gap was noted normal at 9. Albumin was normal. CBC that was done on 10/14/2018, hemoglobin 8.9, WBC count normal, platelet count was normal. Urinalysis shows chloride of 27. CBC that was done on this morning, hemoglobin 8.9, WBC normal, platelet count normal. CMP this morning, BUN 41, creatinine 1.38, sodium 132, potassium 5.2, chloride 113, CO2 11, albumin of 2.6. The chest x-ray that was done on 10/13/2018 was reviewed, shows severe hyperinflated changes and volume loss on the right side with past right upper lobectomy, there was no visible gross pulmonary infiltration, pacemaker noted in place. IMPRESSION: 1. The patient has been currently noted with progressive severe weight loss with cachexia, admitted to the hospital for acute exacerbation of chronic obstructive pulmonary disease. 2. 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 3. The patient with severe mucus impaction with nonproductive cough as well. 4. Cachexia with decreased weight noted secondary to prolonged hospitalization, decreased oral intake, and multifactorial. 5. Past history of 2 cancers of the breast on the left side and right lung cancer, treated in the past with surgeries. 6. The patient with past history of tobacco use as well. PLAN OF MANAGEMENT: At this time, the patient would be recommended about continuation of bronchodilators and oxygen supplementation. She does not seem to have sinus symptoms, considering acute infection. Certainly antibiotics could be continued. The patient is also noted low BMI. Nutrition support may be provided if necessary with either consideration for PEG tube for addition of calorie support or parenteral nutrition administration. Preference more should be increase oral intake; if not noted adequate, consideration for the PEG tube. Also addressing code status. For the nonproductive cough, the patient has been scheduled for bronchoscopy to be done tomorrow morning. Other additional treatment changes will be done based on progression of the illness. Order random cortisol level because of hyponatremia to rule out adrenal insufficiency. ELLI REGALADO MD CM:CONSTR:REPORT OF CONSULTATION 1425 10/29/18 0827 interface
--- NOTE | ~2018-10-13 | PR ---
[place], [place] PROGRESS NOTE NAME: ABDI ARZOLA UNIT #: [id number] ROOM: 528 DOCTOR: FABRICIO MARES MD,ELLI BIRTHDATE: [birth year] DOS: 10/19/2018 PULMONARY PROGRESS NOTE SUBJECTIVE: The patient was noted comfortable at this time, resting on the bed this morning of assessment. She was still complaining of symptoms of nausea and some vomiting intermittently. Denies symptoms of chest pain or any acute hemoptysis. OBJECTIVE: VITAL SIGNS: For the patient, which are recorded this morning as a normal temperature, respiratory rate 20, heart rate 77, blood pressure 180/68, earlier 152/73. The pulse oxygen saturation recorded as 97% saturation. HEENT: Examination shows head was atraumatic. Eyes nonicterus. CARDIOVASCULAR SYSTEM: S1, S2 audible. LUNGS: Clear wheezing bilaterally. There were no crackles. ABDOMEN: Soft, nontender. Bowel sounds present. EXTREMITIES: No acute change. IMPRESSION: 1. Stable respiratory status with resolving cough, status post bronchoscopy, light growth of gram-negative bacilli isolation at this time. 2. Stable chronic obstructive pulmonary disease. 3. Symptoms of nausea and vomiting, etiology unclear, may be related to the abdominal problem, which has been addressed by the primary care attending. PLAN OF TREATMENT: No change in plan of care. Continue usual medication of COPD and bronchodilators. No change in treatment would be recommended except reduction of Solu-Medrol 40 mg daily dose. ELLI REGALADO MD CM:PNTRANS 1154 0137 ELLI MARES MD 10/20/18 0136 interface
--- NOTE | ~2018-10-13 | EKG ---
[place], [place] ELECTROCARDIOGRAM REPORT NAME: ABDI ARZOLA UNIT #: [id number] ROOM: 528 DOCTOR: CHUY DRAFT REPORT BIRTHDATE: [birth year] [facility] Test Date: 2018-10-13 Test Time: 16:01:38 Pat Name: ABDI ARZOLA Department: Room: 528 Gender: F Aircraft General Repair Mechanic: Gabriela Gutierrez : 1940 Requested By: LI MATUTE Order Number: [id number] Reading MD: Josue Dsouza Measurements Intervals [place] Rate: 85 P: 78 ND: 192 QRS: -10 QRSD: 101 T: 82 QT: 378 QTc: 450 Interpretive Statements Sinus rhythm Probable left ventricular hypertrophy Anterior Q waves, possibly due to LVH Compared to ECG 08/07/2018 21:05:19 Left ventricular hypertrophy now present Left ventricular hypertrophy now present T-wave abnormality no longer present Electronically Signed On 10-15-2018 10:55:24 PDT by Josue Dsouza CM:EKGRPT:ELECTROCARDIOGRAM REPORT 1601 1055 LI JUAN DRAFT REPORT LI MATUTE DO
--- NOTE | ~2018-10-13 | EKG ---
[place], [place] ELECTROCARDIOGRAM REPORT NAME: ABDI ARZOLA UNIT #: [id number] ROOM: 528 DOCTOR: CHUY DRAFT REPORT BIRTHDATE: [birth year] [facility] Test Date: 2018-10-13 Test Time: 12:26:38 Pat Name: ABDI ARZOLA Department: Room: 528 Gender: F Automobile Mechanic Assistant: : 1940 Requested By: LI MATUTE Order Number: [id number] Reading MD: Josue Dsouza Measurements Intervals [place] Rate: 92 P: 73 MN: 205 QRS: -23 QRSD: 95 T: 86 QT: 340 QTc: 421 Interpretive Statements Sinus rhythm Probable left atrial enlargement Left ventricular hypertrophy Anterior Q waves, possibly due to LVH Compared to ECG 08/07/2018 21:05:19 Left ventricular hypertrophy now present T-wave abnormality no longer present Electronically Signed On 10-15-2018 10:51:48 PDT by Josue Dsouza CM:EKGRPT:ELECTROCARDIOGRAM REPORT 1226 1051 LI JUAN DRAFT REPORT LI MATUTE DO
--- NOTE | ~2018-10-13 | PR ---
[place], [place] PROGRESS NOTE NAME: ABDI ARZOLA [facility] #: [id number] UNIT #: [id number] ROOM: 528 DOCTOR: FABRICIO MARES MD,ELLI BIRTHDATE: [birth year] DOS: 10/15/2018 PULMONARY PROGRESS NOTE SUBJECTIVE: The patient remains the same. The patient is noted quite frail. Cough has been stated by the patient with no sputum expectoration. Denies symptoms of acute shortness of breath. Using oxygen supplement nasal cannula. Denies symptoms of fever, chills, or any hemoptysis. Denies any pain of the lower extremities. Denies any abdominal pain. Denies symptoms of nausea, vomiting, diarrhea, or abdominal pain at this time. Remaining systems reviewed were noted negative. The patient is n.p.o. past midnight for bronchoscopy that is planned for today. The family member is present at bedside with the patient. OBJECTIVE: VITAL SIGNS: The patient has normal temperature, respiratory rate 20, heart rate 94, blood pressure 126/55-104/53. The pulse oxygen saturation recorded as 98% saturation on two liters nasal cannula. HEENT: Examination shows head is atraumatic. Eyes nonicterus. NECK: Supple. CARDIOVASCULAR: S1 and S2 audible. LUNGS: Moderately decreased breath sounds, there is no wheezing, crackles heard. ABDOMEN: Soft, flat, nontender. Bowel sounds present. EXTREMITIES: Loss of muscle mass, without any edema. MUSCULOSKELETAL: Without any acute deformities. CENTRAL NERVOUS SYSTEM: Intact. LABORATORY DATA: CBC - WBC count 7.2, hemoglobin 8.9, hematocrit 27.7, platelet count normal this morning. BMP this morning - BUN of 41, creatinine 1.14, glucose 128, CO2 of 13. IMPRESSION: 1. Persistent non-anion gap metabolic acidosis; however, resolution of hyperkalemia noted. 2. Acute tracheobronchitis with exacerbation of chronic obstructive pulmonary disease and nonproductive cough. 3. The patient with severe protein-calorie malnutrition, decreased oral intake. PLAN OF MANAGEMENT: Proceed with fiberoptic bronchoscopy as necessary. Continuation of bronchodilators, other therapy plan of management. Additional treatment changes will be made based on the progression of illness. No immediate changes need to be made. The cortisol level was completed yesterday as normal range, certainly excluding any significant hypoadrenalism. [place], [place] PROGRESS NOTE NAME: ABDI ARZOLA UNIT #: [id number] ROOM: 528 DOCTOR: ELLI ISBELL MD BIRTHDATE: [birth year] ELLI REGALADO MD CM:PNTRANS 1328 0330 ELLI MARES MD 10/16/18 0329 interface
--- NOTE | ~2018-10-13 | PR ---
[place], [place] PROGRESS NOTE NAME: ABDI ARZOLA UNIT #: [id number] ROOM: 528 DOCTOR: FABRICIO MARES MD,ELLI BIRTHDATE: [birth year] DOS: 10/18/2018 PULMONARY PROGRESS NOTE SUBJECTIVE: The patient was noted comfortable at this time. Denies any cough, but complain of nausea symptoms since last night and vomiting at times. Denies symptoms of abdominal pain. OBJECTIVE: VITAL SIGNS: Normal temperature, respiratory rate 18, heart rate of 93-112, blood pressure 161/100. HEENT: Examination shows head was atraumatic. Eyes nonicterus. NECK: Supple. CARDIOVASCULAR: S1, S2 audible. LUNGS: No wheeze or crackles this morning. ABDOMEN: Soft, nontender. Bowel sounds present. EXTREMITIES: No new change. IMPRESSION: 1. The patient with acute tracheobronchitis at this time with a gram-negative infection at this time, which has been currently monitored and not treated because light growth and past history of Clostridium difficile colitis. 2. Symptoms of nausea and vomiting, etiology was unclear. PLAN OF MANAGEMENT: Continue medical management for GI symptoms. No other therapy changes needs to be done. Usual care, other supportive plan of management and treatment plan of care. ELLI REGALADO MD CM:PNTRANS [id number] ELLI MARES MD 10/18/18 1718 interface
--- NOTE | ~2018-10-13 | PR ---
[place], [place] PROGRESS NOTE NAME: ABDI ARZOLA UNIT #: [id number] ROOM: 528 DOCTOR: HETAL MEYER MD BIRTHDATE: [birth year] DOS: 10/17/2018 SUBJECTIVE: She feels fairly well other than being short of breath. She has no chest pain or palpitations, has not had any fever or chills. She has mild cough. She feels short of breath and had breakfast. Her appetite is fairly decent. She has sat in a chair, but has not been walked to the bathroom or in the hallways. She had C. diff colitis not long ago and is under isolation now. PHYSICAL EXAMINATION: GENERAL: Reveals a patient who is alert. She is fairly tachypneic. She is very underweight, slight sarcopenia. VITAL SIGNS: Temperature is 98.3, pulse is 88 and regular, blood pressure 132/60. NECK: JVP is normal. AJR is negative. CARDIOVASCULAR: Auscultation reveals somewhat loud pulmonic component of the second heart sound, no edema in the lower extremity. LUNGS: Breath sounds are significantly diminished bilaterally with some crackles here and there. ABDOMEN: Supple, nontender. IMPRESSION: 1. Lethargy seems to have improved markedly. 2. Complete heart block, has a pacemaker, which she is not being used at this time. 3. Chronic diastolic heart failure is well compensated. 4. Chronic obstructive pulmonary disease exacerbation and this is being treated. No new recommendations. [place], [place] PROGRESS NOTE NAME: ABDI ARZOLA UNIT #: [id number] ROOM: 528 DOCTOR: HETAL MEYER MD BIRTHDATE: [birth year] HETAL MEYER MD CM:PNTRANS [id number] HETAL MEYER MD 10/18/18 0352 interface
[~2018-10-13 12:22] MED LIST changes: +AMLODIPINE BESY10 MG PO; +DRONABINOL2.5 MG PO; +FLAGYL500 MG IV; +LACTINEX 0.2 MG1 TAB PO; +REMEDY CALAZIME4 GM T
[2018-10-13 12:26] VITALS: BP 118/81
[2018-10-13 12:50] LABS: BASO # 0.1 10*3/uL (0.0-0.1); BASO % 0.5 % (0.0-1.0); EOS % 0.2 % (1.0-4.0); HEMOGLOBIN 12.9 g/dl (12.0-16.0); LYMPH # 1.2 10*3/uL (1.3-4.4); LYMPH % 11.5 % (27.0-41.0); MEAN CELL VOLUME 97.8 fl (81.0-99.0); MEAN CORPUSCULAR HGB 31.5 pg (27.0-31.0); MEAN CORPUSCULAR HGB CONC 32.3 g/dl (33.0-37.0); MEAN PLATELET VOLUME 9.6 fl (9.6-12.3); MONO # 0.5 10*3/uL (0.1-1.0); NEUT # 8.9 10*3/uL (2.3-7.9); NEUT % 82.3 % (47.0-73.0); PLATELET COUNT AUTOMATED 236 10*3/uL (130-400); RED BLOOD COUNT 4.09 10*6/uL (4.10-5.10); WHITE BLOOD COUNT 10.8 10*3/uL (4.8-10.8)
[2018-10-13 12:57] LABS: ACT PARTIAL THROMBO TIME 30.5 SECONDS (20.8-31.5); INTERNATIONAL NORM RATIO 0.9 (2.0-3.5)
[2018-10-13 13:06] LABS: ALBUMIN 3.7 gm/dl (3.1-4.5); ALKALINE PHOSPHATASE 98 U/L (45-117); BUN 47 mg/dl (7-24); CHLORIDE 108 mmol/L (98-107); CREATININE 1.89 mg/dL (0.55-1.02); POTASSIUM 5.3 mmol/L (3.5-5.1); SGOT/AST 15 IU/L (3-35); SGPT/ALT 24 U/L (12-78); SODIUM 128 mmol/L (136-145); TOTAL PROTEIN 7.8 gm/dL (6.4-8.2)
[2018-10-13 13:22] LABS: TROPONIN I < 0.015 ng/ml (<0.045)
--- NOTE | 2018-10-13 15:38 | NUR ---
A 78, admitted to 5E, under the services of JONELLE Wilson DO with a diagnosis of AC RESP FAILURE, ARF. Chief complaint is SOB. Patient arrived via bed from ER. Monitor applied. Initial assessment completed. Vital signs taken and recorded. JONELLE WILSON DO notified of admission to the unit. Orders received. See assessment for past medical history, medications and allergies. Patient and/or family oriented to unit. Clothing/patient valuable form completed. MERVIN GARCIA
[2018-10-13 16:00] VITALS: BP 114/46
[2018-10-13] MEDS ORDERED: PROAIR HFA8.5 GM INH (16:05)
[2018-10-13] MEDS ORDERED: ASPIRIN ADULT L81 M1 PO (16:06)
[2018-10-13] MEDS ORDERED: CARDIZEM30 MG PO (16:06)
[2018-10-13] MEDS ORDERED: ZOLOFT25 MG PO (16:07)
[2018-10-13] MEDS ORDERED: PANTOPRAZOLE SO40 MG PO (16:07)
[2018-10-13] MEDS ORDERED: SODIUM BICARBO650 MG PO (16:08)
[2018-10-13] MEDS ORDERED: BUSPAR5 MG PO (16:08)
[2018-10-13] MEDS ORDERED: MELATONIN3 MG PO (16:08)
--- NOTE | 2018-10-13 16:15 | NUR ---
AC INFORMED THAT MEDICATIONS ARE VERIFIED AND UP TO DATE
--- NOTE | 2018-10-13 16:30 | NUR ---
AC STATED SHE WANTED URINE SPECIMEN COLLECTED PRIOR TO IVF ADMINISTRATION.
--- NOTE | 2018-10-13 18:08 | NUR ---
AWARE OF CONSULT. NO NEW ORDERS.
--- NOTE | 2018-10-13 18:12 | NUR ---
AWARE OF CONSULT. NO NEW ORDERS.
--- NOTE | 2018-10-13 18:19 | NUR ---
ANSWERING SERVICES CALLED FOR . KNIT GOODS WASHER
[2018-10-13 18:54] LABS: URINE CREATININE RANDOM 83.7 mg/dL
--- NOTE | 2018-10-13 19:50 | NUR ---
MEDICATED WITH NORCO PER PRN ORDER FOR C/O LAG AND BACK PAIN.
[2018-10-13 20:00] VITALS: BP 107/53
--- NOTE | 2018-10-13 22:00 | NUR ---
NORCO EFFECTIVE FOR PAIN.
[2018-10-14] VITALS: BP 98/46
[2018-10-14 06:45] LABS: MEAN CELL VOLUME 98.2 fl (81.0-99.0); MEAN CORPUSCULAR HGB 31.4 pg (27.0-31.0); MEAN PLATELET VOLUME 10.1 fl (9.6-12.3); PLATELET COUNT AUTOMATED 205 10*3/uL (130-400); RED BLOOD COUNT 2.83 10*6/uL (4.10-5.10); RED CELL DISTRI WIDTH 15.9 % (0-14.5); WHITE BLOOD COUNT 5.9 10*3/uL (4.8-10.8)
[2018-10-14 06:54] LABS: HEMATOCRIT 27.8 % (37.0-47.0); HEMOGLOBIN 8.9 g/dl (12.0-16.0)
[2018-10-14 07:01] LABS: ALBUMIN 2.6 gm/dl (3.1-4.5); CREATININE 1.38 mg/dL (0.55-1.02); PHOSPHOROUS 5.2 mg/dL (2.5-4.9); POTASSIUM 5.2 mmol/L (3.5-5.1); TOTAL PROTEIN 5.7 gm/dL (6.4-8.2)
--- NOTE | 2018-10-14 07:05 | NUR ---
REPORT OBTAINED FROM SEGUN-ZIA. PATIENT IS RESTING IN BED, EYES CLOSED. NO DISTRESS NOTED, RESP ARE ERND ON O2 2LPM NC. BED IS LOCKED IN LOWEST POSITION, ALARM MAINTAINED. IVF RUNNING TO RIGHT [facility], SITE ASYMPTOMATIC. CALL LIGHT LEFT WITHIN REACH.
[2018-10-14 07:13] LABS: TOTAL CELLS COUNTED 100 #CELLS
[2018-10-14 07:14] LABS: BURR CELLS FEW; PLATELET SUFFICIENCY NORMAL (NORMAL)
[2018-10-14 08:00] VITALS: BP 122/52
--- NOTE | 2018-10-14 08:46 | NUR ---
PATIENT MEDICATED WITH NORCO FOR C/O BACK PAIN 12/13. WILL MONITOR
--- NOTE | 2018-10-14 09:46 | NUR ---
NORCO EFFECTIVE FOR BACK PAIN
--- NOTE | 2018-10-14 11:54 | NUR ---
Patient not available for OT evalaution as she is eating lunch. OTR will recheck at a later time. Daiana Kyle OTR/Moon
[2018-10-14 12:00] VITALS: BP 118/50
--- NOTE | 2018-10-14 12:27 | NUR ---
Patient Relations Specialist in to talk to patient. Patient states lives at HOME with SON. There are SEVERAL steps in the home. Physician: EDGARD WEBBER Pharmacy: [facility] [place] [facility]: [facility] Patient's level of ADLs: MODERATE ASSIST Patient has working utilities: YES DME: CANE, WALKER, NEBULIZER Follow-up physician's appointment after d/c: WILL BE MADE BY HOSPITALIST NURSE DIRECTOR ON DISCHARGE Does patient want to access PORTAL?: NO Discharge plan PT STATES SHE LIVES AT HOME WITH HER SON. WAS RECENTLY DISCHARGED FROM REHAB AND WAS DOING WELL UNTIL A FEW DAYS AGO. STATES THERE ARE STEPS IN HER HOME BUT SHE IS ALL ON THE FIRST LEVEL AND DOES NOT USE THEM AT ALL. SHE HAS OV AND HER PLANS ARE TO RETURN HOME ON DISCHARGE WITH [facility].. WILL CONTINUE TO FOLLOW. STATES SHE WILL HAVE A RIDE HOME. ANAIS MONTANO
--- NOTE | 2018-10-14 15:28 | NUR ---
Occupational Therapy evaluation offered, but patient politely requested OTR return for evaluation after scheduled testing tomorrow. Daiana Kyle OTR/Moon
[2018-10-14 16:00] VITALS: BP 110/68
[2018-10-14 20:00] VITALS: BP 87/49; BP 90/58
[2018-10-15] VITALS (8 sets, daily range): BP systolic 99–134; BP diastolic 48–61
[2018-10-15 06:13] LABS: HEMATOCRIT 27.7 % (37.0-47.0); HEMOGLOBIN 8.9 g/dl (12.0-16.0); MEAN CELL VOLUME 98.9 fl (81.0-99.0); MEAN CORPUSCULAR HGB 31.8 pg (27.0-31.0); MEAN CORPUSCULAR HGB CONC 32.1 g/dl (33.0-37.0); PLATELET COUNT AUTOMATED 204 10*3/uL (130-400); RED CELL DISTRI WIDTH 16.4 % (0-14.5); WHITE BLOOD COUNT 7.2 10*3/uL (4.8-10.8)
[2018-10-15 06:23] LABS: CREATININE 1.14 mg/dL (0.55-1.02); POTASSIUM 4.7 mmol/L (3.5-5.1)
[2018-10-15 07:02] LABS: BURR CELLS FEW; PLATELET SUFFICIENCY NORMAL (NORMAL); POLYCHROMASIA SLIGHT; TOTAL CELLS COUNTED 100 #CELLS
--- NOTE | 2018-10-15 08:13 | NUR ---
PT TO OR FOR BRONCH AT THIS TIME.
--- NOTE | 2018-10-15 09:23 | NUR ---
Patient not available for Occupational Therapy as she is out of her room for a bronchoscopy. Daiana Kyle OTR/l
--- NOTE | 2018-10-15 09:28 | NUR ---
PHYSICAL THERAPY PAtient off floor for procedure/tests. Danitanubia Fleming,PT
--- NOTE | 2018-10-15 09:52 | NUR ---
POST-OP REPORT REC'D FROM ZIA MCGEE IN PACU.
--- NOTE | 2018-10-15 10:06 | NUR ---
PT BACK TO ROOM FOLLOWING BRONCH.
--- NOTE | 2018-10-15 10:33 | NUR ---
NOTIFIED EDWARD PLAZA THAT PT IS BACK TO ROOM FOLLOWING BRONCH.
--- NOTE | 2018-10-15 11:18 | NUR ---
PT TOLERATING JELLO. INCREASED DIET PER ORDERS TO REGULAR DIET.
--- NOTE | 2018-10-15 11:45 | NUR ---
PHYSICAL THERAPY Patient in room and awake. Requests wait till after lunch for PT. Thank you for this referral. Danita Fleming,PT
--- NOTE | 2018-10-15 12:23 | NUR ---
Patient returned from bronscopy and waiting for lunch. OTR to recheck after lunch. Daiana Kyle OTR/L
--- NOTE | 2018-10-15 13:56 | NUR ---
Occupational Therapy evaluation completed on 5 with full eval to follow. Precautions include h/o c-diff isolation,intermittent O2 use; patient removed O2 stating she does not need it, moderate complexity level 13977 via testing, chart review, evaluation, bed alarm, fall risk,frail. Recommend OT per pOC and return home w/ son and home health SN,OT,PT,COOPERER. Thank you for this referral Daiana Kyle OTR/L
--- NOTE | 2018-10-15 14:17 | NUR ---
COLOSTOMY FOUND LEAKING AT SITE. REPLACED WITH NEW BAG. PT TOLERATED WELL. ASSISTED BACK TO BED WITH 2xASSIST AND STAND/PIVOT. VERY POOR ENDURANCE. BED ALARM ON. CALL LIGHT IN REACH.
--- NOTE | 2018-10-15 14:21 | NUR ---
PHYSICAL THERAPY Patient evaluated on 5, full evaluation to follow. Continue with PT as per plan of care with fall, 02 and acute debility precautions. Requests home for d/c: recommend home health RN, PT and aides prn. PAtient is moderate complexity via chart review, tests and evaluation: 42903. Thank you for this referral. Danita Fleming,PT
[2018-10-15 18:06] LABS: BILIRUBIN NEGATIVE (NEGATIVE); BLOOD NEGATIVE (NEGATIVE); CLARITY CLEAR (CLEAR); COLOR YELLOW (YELLOW); GLUCOSE NEGATIVE (NEGATIVE); KETONE NEGATIVE (NEGATIVE); LEUKO ESTERASE 1+ (NEGATIVE); NITRITE NEGATIVE (NEGATIVE); PH 5.5 (5.0-9.0); UROBILINOGEN 0.2 E.U./dl (0.2-1.0)
[2018-10-15 18:24] LABS: BACTERIA 2+; RBC 0-2 rbc/hpf (0-2); WBC TNTC wbc/hpf (0-5)
--- NOTE | 2018-10-15 21:45 | NUR ---
PATIENT OSTOMY LEAKING AT SITE. CHANGED AT THIS TIME. PATIENT VOICES NO OTHER COMPLAINTS. WILL CONTINUE TO MONITOR.
[2018-10-16] VITALS: BP 123/61
[2018-10-16 07:15] LABS: BUN 37 mg/dl (7-24); CHLORIDE 119 mmol/L (98-107); CREATININE 0.86 mg/dL (0.55-1.02); POTASSIUM 4.1 mmol/L (3.5-5.1); SODIUM 142 mmol/L (136-145)
[2018-10-16 08:00] VITALS: BP 140/60
[2018-10-16 12:00] VITALS: BP 123/72
--- NOTE | 2018-10-16 13:58 | NUR ---
PHYSICAL THERAPY Patient seen this PM for her therapy session, supine in bed at time of arrival. Pt did not want to get out of bed this date- states "my son is bringing me food, I will get up then'. Pt did not want to become to fatigued d/t therapy session. Pt was agreeable to perform supine B LE ther-ex. Pt performed supine B LE ther-ex for strength, endurance and function- for participation in bed mobility, functional transfers and activities: heel slides, quad sets, ankle pumps, SLS, hip ABD/ADD x15 reps. OUTPATIENT PHYSICAL THERAPIST providing cues and supervision for technique and progression of exercises. Intermittent rest breaks provided. Pt supine in bed at session end with call light and tray table within reach. Pt voiced no c/o. Amy De León, OUTPATIENT PHYSICAL THERAPIST
[2018-10-16 15:06] LABS: ACID FAST SPEC PROCESSING Concentration (.)
[2018-10-16 16:00] VITALS: BP 134/56
--- NOTE | 2018-10-16 19:30 | NUR ---
BEDSIDE REPORT RECIEVED FROM DAY SHIFT RN. PT IS RESTING IN BED AT THIS TIME AND DENIES ANY PAIN OR DISCOMFORT. RESPIRATIONS ARE EASY AND NONLABORED ON ROOM AIR. PT DENIES ANY NEEDS AT THIS TIME. WILL CONTINUE TO MONITOR.
[2018-10-16 20:00] VITALS: BP 138/69
--- NOTE | 2018-10-16 21:42 | NUR ---
DR. FERNANDEZ NOTIFIED OF PT'S COMPLAINTS OF NAUSEA. THERE IS NO ACTIVE VOMITING AT THIS TIME. HE STATES HE WILL PUT IN AN ORDER
--- NOTE | 2018-10-16 21:50 | NUR ---
ONE TIME ORDER FOR ZOFRAN GIVEN FOR COMPLAINTS OF NAUSEA. WILL MONITOR FOR EFFECTIVENESS.
[2018-10-17] VITALS: BP 164/80
--- NOTE | 2018-10-17 04:30 | NUR ---
PT IS ASLEEP IN BED AT THIS TIME WITH NO OBVIOUS SIGNS OF PAIN OR DISCOMFORT. RESPIRATIONS ARE EASY AND NONLABORED. BED IS LOCKED AND IN THE LOWEST POSITION. WILL CONTINUE TO MONITOR.
[2018-10-17 06:43] LABS: HEMATOCRIT 27.5 % (37.0-47.0); HEMOGLOBIN 8.8 g/dl (12.0-16.0); MEAN CELL VOLUME 96.2 fl (81.0-99.0); MEAN CORPUSCULAR HGB 30.8 pg (27.0-31.0); MEAN PLATELET VOLUME 9.9 fl (9.6-12.3); NUCLEATED RED BLOOD CELL 0.3 % (0.0-0.0); PLATELET COUNT AUTOMATED 206 10*3/uL (130-400); RED BLOOD COUNT 2.86 10*6/uL (4.10-5.10); RED CELL DISTRI WIDTH 16.5 % (0-14.5); WHITE BLOOD COUNT 7.6 10*3/uL (4.8-10.8)
[2018-10-17 07:04] LABS: BUN 30 mg/dl (7-24); CHLORIDE 119 mmol/L (98-107); CREATININE 0.78 mg/dL (0.55-1.02); POTASSIUM 4.7 mmol/L (3.5-5.1); SODIUM 143 mmol/L (136-145)
[2018-10-17 08:00] VITALS: BP 132/60
[2018-10-17 08:03] LABS: BURR CELLS FEW; PLATELET SUFFICIENCY NORMAL (NORMAL); POLYCHROMASIA SLIGHT; TARGET CELLS FEW; TOTAL CELLS COUNTED 100 #CELLS; TOXIC GRANULATION SLIGHT
[2018-10-17 12:00] VITALS: BP 141/56
[2018-10-17 16:00] VITALS: BP 132/64
[2018-10-17 20:00] VITALS: BP 145/68
--- NOTE | 2018-10-17 21:33 | NUR ---
PRN ORDER FOR ZOFRAN REQUESTED AND RECIEVED FOR C/O NAUSEA. WILL MONITOR FOR EFFECTIVENESS.
--- NOTE | 2018-10-17 23:00 | NUR ---
ZOFRAN MILDLY EFFECTIVE PER PT.
--- NOTE | 2018-10-17 23:26 | NUR ---
ONE TIME ORDER FOR IV PROTONIX REQUESTED AND RECIEVED FOR C/O HEART BURN AND STOMACH DISCOMFORT. WILL MONITOR FOR EFFECTIVENESS.
[2018-10-18] VITALS: BP 161/100
--- NOTE | 2018-10-18 01:00 | NUR ---
PROTONIX EFFECTIVE. PT SLEEPING, NO DISTRESS NOTED.
[2018-10-18 06:26] LABS: MEAN CORPUSCULAR HGB CONC 32.3 g/dl (33.0-37.0); MEAN PLATELET VOLUME 10.2 fl (9.6-12.3); NUCLEATED RED BLOOD CELL 0.2 % (0.0-0.0); PLATELET COUNT AUTOMATED 227 10*3/uL (130-400); RED BLOOD COUNT 3.23 10*6/uL (4.10-5.10); RED CELL DISTRI WIDTH 16.5 % (0-14.5)
[2018-10-18 06:38] LABS: BUN 25 mg/dl (7-24); CHLORIDE 113 mmol/L (98-107); CREATININE 0.84 mg/dL (0.55-1.02); POTASSIUM 3.9 mmol/L (3.5-5.1); SODIUM 142 mmol/L (136-145)
[2018-10-18 07:17] LABS: PLATELET SUFFICIENCY NORMAL (NORMAL); TOTAL CELLS COUNTED 100 #CELLS
--- NOTE | 2018-10-18 08:00 | NUR ---
PT SEEN AT THIS TIME. PT IS SITTING UP IN BED AND HAS NO COMPLAINTS AT THIS TIME. BED IN LOWEST LOCKED POSITION AND CALL LIGHT WITHIN REACH.
--- NOTE | 2018-10-18 08:57 | NUR ---
PT STATES SHE IS HAVING NAUSEA AND HAD 1 SMALL EMESIS. PT IS ALSO COMPLAINING OF A HEADACHE. PT WILL RECIEVE PRN ZOFRAN AND NORCO. WILL MONITOR FOR EFFECTIVENESS.
--- NOTE | 2018-10-18 09:30 | NUR ---
PT STILL COMPLAINS OF NAUSEA AT THIS TIME. PT HAD ANOTHER EPISODE OF EMESIS. WILL MONITOR FOR EFFECTIVENESS OF ZOFRAN.
--- NOTE | 2018-10-18 09:56 | NUR ---
PHYSICAL THERAPY checked on pt 830am, pt was on bedpan and stated she was waiting to get some medicine because she has been vomiting, will check back at a later time. XIOMARA BLAKELY LABORATORY ANALYST
--- NOTE | 2018-10-18 11:00 | NUR ---
PATIENT STATES RELIEF FROM PRN ZOFRAN AND NORCO.
--- NOTE | 2018-10-18 12:00 | NUR ---
OT NOTE Pt was seen this A.M. 1:1 for 25 minute OT session. Upon arrival pt was supine in bed. Pt identified by name and and had complaints of generalized fatigue and weakness. Pt transferred supine to sit EOB with SBA. While sitting upright pt donned B slippers with modA for inital start over her toes and quick onset of fatigue. Sit to stand completed from bed level with Howard and use of standard walker for UE support. Challenged pt's static standing tolerance needed for increased I in self care tasks and functional transfers and pt was able to tolerate aprox 2 minutes 43 seconds before sitting due to fatigue. Functional mobility completed to the bathroom with CGA and use of standard walker. There she transferred on to standard commode with Howard. Clothing management completed with modA and toilet hygiene completed with supervision while seated. Pt then transferred off standard commode with modA and use of grab bar due to low surface. Pt stood sink side while washing her hands with CGA for safety. Pt had quick onset of fatigue resulting in sitting rest break after aprox 45 seconds. Pt was left sitting upright in the recliner with call light in hand, tray table in place, and body alarm on for safety. Continue with rec D/C plan to home with home health. RONI Mishra/Moon
--- NOTE | 2018-10-18 12:49 | NUR ---
PHYSICAL THERAPY informed consent given, pt identified by name and .pt presented supine in bed pulse 80bpm. sit to supine SBA.STS and stand to sit x2 trials modA. static standing balance 1min B UE on AD, SBA no LOB presented. Walked 16ft x1, 20ft x1,standard walker CGA. seated rests in between, at end of walk pulse would reach 150bpm, and fall to 96bpm after 30seconds of rest. TUG test 1min 43seconds CGA, pt took a sharp turn and walked over the point to turn rather than walk completely around it, no LOB presented. Ended treatment pt sitting in chair pulse 90bpm, spO2 100% room air, call light and belongings in reach, chair alarm on. 1:1 treatment with COMPTOMETER OPERATOR 20min. XIOMARA BLAKELY COMPTOMETER OPERATOR
--- NOTE | 2018-10-18 12:50 | NUR ---
PT PLANS TO RETURN HOME WITH SON AND RESUMPTION OF HOME HEALTH. WILL CONTINUE TO FOLLOW.
[2018-10-18 13:20] VITALS: BP 152/86
[2018-10-18 16:00] VITALS: BP 133/75
[2018-10-18 20:00] VITALS: BP 153/84
--- NOTE | 2018-10-18 21:43 | NUR ---
ASSUMED CARE OF PATIENT. PATIENT IS RESTING IN BED WITH EASY AND REGULAR RESPERS ON ROOM AIR. ASSESSMENT IS COMPLETE WITH NO S/S OF DISTRESS NOTED AT THIS TIME. BED IS LOW, LOCKED, AND CALL LIGHT IS WITHIN REACH. 2200 MEDICATIONS GIVEN AT THIS TIME WELL PRN ZOFRAN FOR NAUSEA. PATIENT TOLERATED WELL, CALL LIGHT IS WITHIN REACH WILL MONITOR.
--- NOTE | 2018-10-18 23:54 | NUR ---
PRN ZOFRAN EFFECTIVE PER PATIENT. 0000 MEDICATIONS GIVEN AT THIS TIME, PATIENT TOLERATED WELL. CALL LIGHT IS WITHIN REACH.
[2018-10-19] VITALS: BP 152/73
--- NOTE | 2018-10-19 04:09 | NUR ---
0400 MEDICATIONS GIVEN AT THIS TIME, PATIENT TOLERATED WELL. CALL LIGHT IS WITHIN REACH.
--- NOTE | 2018-10-19 04:19 | NUR ---
ILLEOSTOMY LEAKED, BEDBATH PROVIDED AND APPLIANCE EXCHANGED. PRN ZOFRAN GIVEN AT THIS TIME WELL FOR NAUSEA. CALL LIGHT IS WITHIN REACH.
--- NOTE | 2018-10-19 04:58 | NUR ---
CONTACTED DR. PEARCE IN REGARDS TO PATIENT HAVING SMALL WHITE PUSTULES IN MOUTH. SEE NEW ORDERS, WILL PASS ON TO DAY TEAM.
--- NOTE | 2018-10-19 05:50 | NUR ---
PRN ZOFRAN NOT EFFECTIVE PER PATIENT, BUT IS WILLING TO TAKE 0600 SYNTHROID BUT REFUSED NYSTATIN SWISH AND SPIT/SWALLOW. CALL LIGHT IS WITHIN REACH.
[2018-10-19 06:27] LABS: BASO % 0.1 % (0.0-1.0); HEMOGLOBIN 9.5 g/dl (12.0-16.0); LYMPH # 1.7 10*3/uL (1.3-4.4); LYMPH % 16.2 % (27.0-41.0); MEAN CELL VOLUME 94.9 fl (81.0-99.0); MEAN CORPUSCULAR HGB 30.1 pg (27.0-31.0); MEAN CORPUSCULAR HGB CONC 31.7 g/dl (33.0-37.0); MONO # 0.8 10*3/uL (0.1-1.0); MONO % 7.8 % (3.0-9.0); NEUT # 7.7 10*3/uL (2.3-7.9); NEUT % 74.8 % (47.0-73.0); NUCLEATED RED BLOOD CELL 0.2 % (0.0-0.0); PLATELET COUNT AUTOMATED 207 10*3/uL (130-400); RED BLOOD COUNT 3.16 10*6/uL (4.10-5.10); RED CELL DISTRI WIDTH 16.1 % (0-14.5); WHITE BLOOD COUNT 10.2 10*3/uL (4.8-10.8)
[2018-10-19 06:45] LABS: BUN 24 mg/dl (7-24); CREATININE 0.72 mg/dL (0.55-1.02)
[2018-10-19 06:50] LABS: CHLORIDE 109 mmol/L (98-107); POTASSIUM 3.4 mmol/L (3.5-5.1); SODIUM 140 mmol/L (136-145)
[2018-10-19 08:00] VITALS: BP 180/68
--- NOTE | 2018-10-19 11:38 | NUR ---
DR. BENITEZ NOTIFIED OF CONSULT. ORDERS OBTAINED AND ENTERED.
--- NOTE | 2018-10-19 11:41 | NUR ---
Received order stating patient would like to discuss options with hospice company. In to see patient, cheng [place] at bedside. Provided list of hospice agencies. Son and patient both stated they are already on [facility]. I explained they can choose any hospice company they would like on the list and patient stated she wants to stay with community. Contacted facility and faxed order and clinicals.
[2018-10-19 12:00] VITALS: BP 153/70
--- NOTE | 2018-10-19 13:31 | NUR ---
PT. REFUSED BREATHING TREATMENT C/O NAUSEA.
--- NOTE | 2018-10-19 14:00 | NUR ---
ORACLE PROGRAMMER ANALYST IN TO SEE PT TODAY. SON AND PT WANT TO THINK ABOUT HOSPICE BEFORE AGREEING TO IT. THEY WILL CHECK BACK WITH PT AND SON THURSDAY, PT SON STATES SHE IS HAVING A SCOPE ON THURSDAY AND THEY WANT TO WAIT TO MAKE THE DECISION AFTER THEN. WILL CONTINUE TO FOLLOW.
--- NOTE | 2018-10-19 14:15 | NUR ---
OT NOTE Pt was seen this P.M. 1:1 for 15 minute OT session. Upon arrival pt was supine in bed with son at bedside. Pt had reports of just talking to hospice nurse and was feeling fatigued and a little nauseated, requesting to rest at this time. Therapist recieved report from both and pt that she would like some education on home exercises. Provided pt and son with education and handout for both PRE home exercise program (green theraband issued) and AROM BUE home exercise program. Educated pt on importance of performing tasks slow, using proper technique, and if any pain is caused to modify or stop exercise. Pt and son both stated understanding and had no other questions or concerns at this time. Pt was left supine in bed with call light in hand, tray table in placee, and bed alarm activated for safety. Continue with POC as able. RONI Mishra/Moon
--- NOTE | 2018-10-19 14:20 | NUR ---
HOSPICE IN TO SEE PATIENT AND PT'S SON. PT AND FAMILY SAID THEY STILL NEED TTIME TO THINK ABOUT IT. PT DID EAT A SMALL JELLO CUP FOR LUNCH. AND PATIENT TOOK MORNING MEDS AT THIS TIME. BED IN LOWEST LOCKED POSITION AND CALL LIGHT WITHIN REACH. WILL CONTINUE TO MONITOR.
--- NOTE | 2018-10-19 14:58 | NUR ---
PHYSICAL THERAPY checked on pt in afternoon, she was speaking with a employment specialist, when pt was checked on after RN was done the pt stated she was not feeling good and could not participate in PT services. Home exercise plan focusing on B LE and a theraband was given to the pt and explained how to perform them. XIOMARA BLAKELY INVENTORY CONTROLLER
--- NOTE | 2018-10-19 15:55 | NUR ---
PT GIVEN PHENERGAN AT THIS TIME. WILL MONITOR FOR EFFECTIVENESS.
[2018-10-19 16:00] VITALS: BP 151/67
--- NOTE | 2018-10-19 17:00 | NUR ---
PT'S ILEOSTOMY BAG WAS CHANGED AT THIS TIME. BAG WAS LEAKING AROUND SITE. PT WAS CLEANED UP AND BED WAS CHANGED. BED IN LOWEST LOCKED POSITION. CALL LIGHT WAS IN REACH. PT HAD NO COMPLAINTS AT THIS TIME.
[2018-10-19 20:00] VITALS: BP 118/56
--- NOTE | 2018-10-19 22:34 | NUR ---
DR. PEARCE CONTACTED AT THIS TIME FOR ILEOSTOMY GASTRIC SECRETIONS BEING RED TINGED. PATIENT DENIES EATING ANYTHING RED IN COLOR. SEE NEW ORDERS.
[2018-10-20] VITALS: BP 142/59
[2018-10-20 06:24] LABS: BASO % 0.1 % (0.0-1.0); EOS # 0.1 10*3/uL (0.0-0.4); EOS % 0.9 % (1.0-4.0); HEMATOCRIT 32.1 % (37.0-47.0); HEMOGLOBIN 10.3 g/dl (12.0-16.0); LYMPH # 1.7 10*3/uL (1.3-4.4); LYMPH % 15.8 % (27.0-41.0); MEAN CORPUSCULAR HGB 31.1 pg (27.0-31.0); MEAN CORPUSCULAR HGB CONC 32.1 g/dl (33.0-37.0); MEAN PLATELET VOLUME 10.2 fl (9.6-12.3); MONO # 0.8 10*3/uL (0.1-1.0); MONO % 7.3 % (3.0-9.0); NEUT # 8.2 10*3/uL (2.3-7.9); NEUT % 74.9 % (47.0-73.0); PLATELET COUNT AUTOMATED 202 10*3/uL (130-400); RED BLOOD COUNT 3.31 10*6/uL (4.10-5.10); RED CELL DISTRI WIDTH 16.1 % (0-14.5)
[2018-10-20 06:54] LABS: BUN 19 mg/dl (7-24); CHLORIDE 112 mmol/L (98-107); CREATININE 0.72 mg/dL (0.55-1.02); POTASSIUM 3.7 mmol/L (3.5-5.1); SODIUM 141 mmol/L (136-145)
[2018-10-20 08:00] VITALS: BP 192/91
--- NOTE | 2018-10-20 09:11 | NUR ---
OT NOTE Attempted to see pt this A.M. for OT session and upon arrival pt had reports of feeling nauseated. Requesting to check back at a later time. Will continue with POC as able. RONI Mishra/Moon
--- NOTE | 2018-10-20 11:01 | NUR ---
C/O NAUSEA, GIVEN IV PHENERGAN. WILL CONT TO MONITOR. CALL LIGHT IN REACH.
--- NOTE | 2018-10-20 11:36 | NUR ---
PHYSICAL THERAPY checked on pt this AM, pt stated she was feeling too nauseous and could not participate in PT services at this time, will check back later. XIOMARA BLAKELY ROLL CUTTING OPERATOR
[2018-10-20 12:00] VITALS: BP 129/61
--- NOTE | 2018-10-20 12:01 | NUR ---
ANGIE EFF. WILL CONT TO MONITOR. CALL LIGHT IN REACH.
--- NOTE | 2018-10-20 12:16 | NUR ---
OT NOTE Attempted to see pt this P.M. for OT session and upon arrival pt was still having reports of feeling nauseated. Pt and family requesting to check back at a later time/date. Will continue with POC as able. RONI Mishra/Moon
--- NOTE | 2018-10-20 13:21 | NUR ---
PHYSICAL THERAPY checked on pt in afternoon, pt states she still feels nauseous and can not participate in PT services at this time. will check back at a later date. XIOMARA BLAKELY RUN LEAD
[2018-10-20] MEDS ORDERED: PHENERGAN25 M3 PO (15:26)
[2018-10-20] MEDS ORDERED: BUSPIRONE HCL7.5 MG PO (15:26)
[2018-10-20] MEDS ORDERED: SODIUM BICARBO650 MG PO (15:26)
[2018-10-20] MEDS ORDERED: PREDNISONE10 MG PO (15:26)
--- NOTE | 2018-10-20 16:00 | NUR ---
OCCUPATIONAL THERAPY CO-SIGN I approve of the Occupational Therapy notes written above. ROSA SNIDER OTR/Moon
--- NOTE | 2018-10-20 17:30 | NUR ---
Discharge instructions reviewed with patient/family. Patient receptive and verbalizes understanding. Follow-up care arranged. Written instructions given to patient/family. Patients son was educated on new prescriptions and follow up visit with pcp within one week of discharge. Patient was wheeled from unit by staff member and all personal belongings were accounted for. MALVIN GARCIA
--- NOTE | 2018-10-21 07:33 | NUR ---
PHYSICAL THERAPY CO-SIGN I approve of the Phyical Therapy notes written above. ALEA MCINTYRE PT
--- NOTE | 2018-10-21 07:44 | NUR ---
OCCUPATIONAL THERAPY CO-SIGN I approve of the Occupational Therapy notes written above. ROSA SNIDER OTR/Moon
[2018-11-12 17:10] LABS: M AVIUM COMPLEX Positive (.); M GORDONAE Not Indicated (.); M KANSASII Not Indicated (.); M TUBERCULOSIS COMPLEX Negative (.)
[2018-11-15 16:44] LABS: ACID FAST CULTURE Positive (.)
[2018-12-14 17:07] LABS: ORGANISM ID, MOLD Final report (.); RESULT 1 Penicillium species (.)
== END 2018-10-20 17:30 | disposition home or self-care (01) | DRG 682 ==
LOC: ED 12:22 → EDHOLD 14:26 → 5E 14:26
PROVIDERS: Emergency Medicine; Family Medicine; Internal Medicine; Internal Medicine Critical Care Medicine; Registered Nurse; Student in an Organized Health Care Education/Training Program; ADMIT Internal Medicine
PROC: 0BC88ZZ Extirpation of Matter from Left Upper Lobe Bronchus, Via Natural or Artificial Opening Endoscopic (ICD-10-PCS; principal; 2018-10-15)
PROC: 0BCB8ZZ Extirpation of Matter from Left Lower Lobe Bronchus, Via Natural or Artificial Opening Endoscopic (ICD-10-PCS; principal; 2018-10-15)
PROC: 0BC38ZZ Extirpation of Matter from Right Main Bronchus, Via Natural or Artificial Opening Endoscopic (ICD-10-PCS; principal; 2018-10-15)
PROC: 0BC18ZZ Extirpation of Matter from Trachea, Via Natural or Artificial Opening Endoscopic (ICD-10-PCS; principal; 2018-10-15)
PROC: 0BC68ZZ Extirpation of Matter from Right Lower Lobe Bronchus, Via Natural or Artificial Opening Endoscopic (ICD-10-PCS; principal; 2018-10-15)
PROC: 0BC48ZZ Extirpation of Matter from Right Upper Lobe Bronchus, Via Natural or Artificial Opening Endoscopic (ICD-10-PCS; principal; 2018-10-15)
PROC: 0BC58ZZ Extirpation of Matter from Right Middle Lobe Bronchus, Via Natural or Artificial Opening Endoscopic (ICD-10-PCS; principal; 2018-10-15)
PROC: 0BC78ZZ Extirpation of Matter from Left Main Bronchus, Via Natural or Artificial Opening Endoscopic (ICD-10-PCS; principal; 2018-10-15)
PROC: 0BC98ZZ Extirpation of Matter from Lingula Bronchus, Via Natural or Artificial Opening Endoscopic (ICD-10-PCS; principal; 2018-10-15)
DX: N17.0 Acute kidney failure with tubular necrosis (principal); J96.01 Acute respiratory failure with hypoxia; E43 Unspecified severe protein-calorie malnutrition; J44.1 Chronic obstructive pulmonary disease with (acute) exacerbation; I50.32 Chronic diastolic (congestive) heart failure; I13.0 Hypertensive heart and chronic kidney disease with heart failure and stage 1 through stage 4 chronic kidney disease, or unspecified chronic kidney disease; E87.2 Acidosis; T17.590A Other foreign object in bronchus causing asphyxiation, initial encounter; E87.1 Hypo-osmolality and hyponatremia; J44.0 Chronic obstructive pulmonary disease with (acute) lower respiratory infection; Z68.1 Body mass index [BMI] 19.9 or less, adult; J20.8 Acute bronchitis due to other specified organisms; Z66 Do not resuscitate; Z51.5 Encounter for palliative care; E87.6 Hypokalemia; I25.10 Atherosclerotic heart disease of native coronary artery without angina pectoris; E86.0 Dehydration; N83.209 Unspecified ovarian cyst, unspecified side; E87.5 Hyperkalemia; F32.9 Major depressive disorder, single episode, unspecified; E03.9 Hypothyroidism, unspecified; I73.9 Peripheral vascular disease, unspecified; X58.XXXA Exposure to other specified factors, initial encounter; K21.9 Gastro-esophageal reflux disease without esophagitis; D53.9 Nutritional anemia, unspecified; N18.3 Chronic kidney disease, stage 3 (moderate); Z88.2 Allergy status to sulfonamides; Z88.8 Allergy status to other drugs, medicaments and biological substances; Z79.82 Long term (current) use of aspirin; Z86.718 Personal history of other venous thrombosis and embolism; Z85.3 Personal history of malignant neoplasm of breast; Z85.118 Personal history of other malignant neoplasm of bronchus and lung; Z87.11 Personal history of peptic ulcer disease; Z90.710 Acquired absence of both cervix and uterus; Z95.0 Presence of cardiac pacemaker; Z90.49 Acquired absence of other specified parts of digestive tract; Z87.891 Personal history of nicotine dependence; Z80.42 Family history of malignant neoplasm of prostate; Z81.1 Family history of alcohol abuse and dependence; Z80.49 Family history of malignant neoplasm of other genital organs; Z82.3 Family history of stroke; Y93.89 Activity, other specified; Y92.89 Other specified places as the place of occurrence of the external cause; Y99.8 Other external cause status